=== PATIENT | male | born 1955 | race Two or more races ===

== ENCOUNTER 2023-11-20 05:02 | Emergency (ER) | payer MEDICARE, SELFPAY ==
[2023-11-20] VITALS (24 sets, daily range): BP systolic 155–174; BP diastolic 76–97; PULSE 64–80; TEMP 33.6–36.4; O2SAT 96–99; BMI 24.8
[2023-11-20 05:17] LABS: Glucometer 107 mg/dL (74-106)
[2023-11-20 05:23] LABS: Basophils Absolute Auto 0.1 10^3/uL (0.0-0.1); Basophils Percent Auto 0.5 % (0.2-2.0); Eosinophils Absolute Auto 0.4 10^3/uL (0.0-0.7); Eosinophils Percent Auto 3.6 % (0.9-7.0); Hematocrit 40.9 % (42.0-54.0); Hemoglobin 13.1 g/dL (14.0-18.0); Immature Granulocytes Abs Auto 0.01 10^3/uL (0.00-0.03); Immature Granulocytes Pct Auto 0.1 % (0.0-0.5); Lymphocytes Absolute Auto 1.1 10^3/uL (1.2-3.8); Lymphocytes Percent Auto 11.3 % (20.5-60.0); Mean Corpuscular Hemoglobin 28.2 pg (25.9-34.0); Mean Platelet Volume 9.6 fL (9.5-13.5); Monocytes Absolute Auto 0.4 10^3/uL (0.3-0.8); Monocytes Percent Auto 4.3 % (1.7-12.0); Neutrophils Percent Auto 80.2 % (43.0-75.0); Platelet Count 256 10^3/uL (150-450); Red Blood Count 4.65 10^6/uL (4.70-6.10); Red Cell Distribution Width 13.9 % (11.0-15.0)
[2023-11-20 05:36] LABS: BUN Creatinine Ratio 11.9; Calcium 9.6 mg/dL (8.5-10.1); Carbon Dioxide 25.3 mmol/L (21.0-32.0); Chloride 105 mmol/L (98-107); Estimated GFR (African America >60 (>=60); Estimated GFR (Non-African Ame 53 (>=60); Glucose 81 mg/dL (74-106); Potassium 3.3 mmol/L (3.5-5.1); Sodium 142 mmol/L (136-145)
--- NOTE | 2023-11-20 05:51 | ED_ITS ---
HPI HPI - General Adult General Chief complaint: Neuro Symptoms/Deficit Stated complaint: UNKNOWN Time Seen by Provider: 11/20/23 05:13 Source: patient Mode of arrival: ambulance Limitations: no limitations History of Present Illness HPI narrative: Patient BIBS after being found to have low blood sugar - EMS reported value of 38. The patient told me that he only ate taco [employer]uen once yesterday and had nothing else to eat. He said he was on the cough last night and then woke up with everyone around me . He does not recall what happened. EMS gave IV dextrose x2 and then brought him to our ED for evaluation. Patient is living with his niece after his kicked him out . He said that he shops for himself and also eats out at restaurants/fast food. He denied any recent illness and has no complaints. Related Data Home Medications ?Medication ?Instructions ?Recorded ?Confirmed atorvastatin 80 mg tablet 80 mg PO DAILY 11/20/23 11/20/23 carvedilol 12.5 mg tablet 12.5 mg PO Q12H 11/20/23 11/20/23 clopidogrel 75 mg tablet 75 mg PO DAILY 11/20/23 11/20/23 fenofibrate 160 mg tablet 160 mg PO DAILY 11/20/23 11/20/23 insulin glargine 100 unit/mL (3 28 unit subcut DAILY 11/20/23 11/20/23 mL) subcutaneous pen (Lantus Solostar U-100 Insulin) levetiracetam 750 mg tablet 750 mg PO Q12H 11/20/23 11/20/23 magnesium 200 mg tablet 400 mg PO TID 11/20/23 11/20/23 metformin 1,000 mg tablet 1,000 mg PO BID 11/20/23 11/20/23 omeprazole 40 mg capsule,delayed 40 mg PO DAILY 11/20/23 11/20/23 release Allergies Allergy/AdvReac Type Severity Reaction Status Date / Time No Known Drug Allergies Allergy Verified 11/20/23 05:10 Opioid HPI Opioid Management Most Recent Opioid Data: No Data to Display Exam Constitutional Vital Signs, click to edit/add: Last Vital Signs Pulse 69 11/20/23 05:04 Resp 24 H 11/20/23 05:04 BP 158/82 H 11/20/23 05:04 Pulse Ox 97 11/20/23 05:04 O2 Del Method Room Air 11/20/23 05:04 Documenting provider has reviewed patient's vital signs: yes Common normals: no apparent distress General appearance: cooperative and comfortable Orientation/consciousness: Yes awake, Yes oriented to person, Yes oriented to place and Yes oriented to time HENMT Common normals: normocephalic Head and scalp: normal to inspection Face and sinus: normal facial exam Mouth: oral and palatal mucosa normal Eye Common normals: PERRL, EOMs intact bilaterally, conjunctivae normal and no scleral icterus Respiratory Common normals: normal respiratory effort, no use of accessory muscles and clear to auscultation bilaterally Cardio Common normals: regular rate and regular rhythm GI Common normals: Normal to inspection, nondistended, normoactive bowel sounds present and non-tender Extremity Common normals: normal to inspection, full ROM and normal capillary refill Neuro Common normals: oriented x3, moves all extremities, no focal motor deficits and no sensory deficits noted Sensorium/orientation: awake, alert, oriented to person, oriented to place and oriented to time Meningeal signs: no meningeal signs Cranial nerves: CN normal except as noted Coordination/balance: does not sway with eyes open and Romberg test negative Speech: speech normal Psych Common normals: mental status grossly normal Course Vital Signs Vital signs: Vital Signs Pulse Rate 69 11/20/23 05:04 Respiratory Rate 24 H 11/20/23 05:04 Blood Pressure 158/82 H 11/20/23 05:04 Pulse Oximetry 97 11/20/23 05:04 Oxygen Delivery Method Room Air 11/20/23 05:04 Pulse Rate 69 11/20/23 05:04 Respiratory Rate 24 H 11/20/23 05:04 Blood Pressure 158/82 H 11/20/23 05:04 Pulse Oximetry 97 11/20/23 05:04 Oxygen Delivery Method Room Air 11/20/23 05:04 Medical Decision Making MDM Narrative Medical decision making narrative: Patient's glucose on arrival = 107. he was fed after blood drawn and sent for testing. Patient's glucose on BMP was 81. His glucose recheck after eating was 77. Glucose continues to drop despite IV and oral supplementation. He said he did not take his night insulin but I believe that he did, because he does not take glipizide or other oral hypoglycemics - only metformin, which would not cause his glucose to continue to drop. Niece's - who the patient is staying with - came to the ED and I talked with him but he was asleep at 10pm and does not know what happened with the patient. he told me that the patient had been doing well and was taking his meds appropriately and, as far as he knew, eating appropriately. Patient started on Dextrose drip - D5 NS at 500mL/hr IV. he will receive a liter of D5 NS and then we will recheck his glucose level. I expect him to be able to be discharged home. Patient signed out to Dr Deal to follow up with his repeat glucose and determine final disposition. Lab Data Lab results reviewed: Yes I reviewed the patient's lab results Labs: Lab Results 11/20/23 11/20/23 11/20/23 Range/Units 05:05 05:12 05:53 WBC 10.0 (4.0-11.0) 10^3/uL RBC 4.65 L (4.70-6.10) 10^6/uL Hgb 13.1 L (14.0-18.0) g/dL Hct 40.9 L (42.0-54.0) % MCV 88.0 (80.0-94.0) fL MCH 28.2 (25.9-34.0) pg MCHC 32.0 (29.9-35.2) g/dL RDW 13.9 (11.0-15.0) % Plt Count 256 (150-450) 10^3/uL MPV 9.6 (9.5-13.5) fL Neut % (Auto) 80.2 H (43.0-75.0) % Lymph % (Auto) 11.3 L (20.5-60.0) % [place] % (Auto) 4.3 (1.7-12.0) % Eos % (Auto) 3.6 (0.9-7.0) % Baso % (Auto) 0.5 (0.2-2.0) % Neut # (Auto) 8.0 H (1.4-6.5) 10^3/uL Lymph # (Auto) 1.1 L (1.2-3.8) 10^3/uL [place] # (Auto) 0.4 (0.3-0.8) 10^3/uL Eos # (Auto) 0.4 (0.0-0.7) 10^3/uL Baso # (Auto) 0.1 (0.0-0.1) 10^3/uL Abs Immat Gran (auto) 0.01 (0.00-0.03) 10^3/uL Imm/Tot Granulo (auto) 0.1 (0.0-0.5) % Sodium 142 (136-145) mmol/L Potassium 3.3 L (3.5-5.1) mmol/L Chloride 105 (98-107) mmol/L Carbon Dioxide 25.3 (21.0-32.0) mmol/L Anion Gap 15.0 BUN 16.0 (7.0-18.0) mg/dL Creatinine 1.35 H (0.70-1.30) mg/dL Est GFR ( Amer) >60 (>=60) Est GFR (Non-Af Amer) 53 L (>=60) BUN/Creatinine Ratio 11.9 Glucose 81 (74-106) mg/dL Calcium 9.6 (8.5-10.1) mg/dL POC Glucose 107 H 77 (74-106) mg/dL Discharge Plan Discharge Chief Complaint: Neuro Symptoms/Deficit Clinical Impression: Hypoglycemia Patient Disposition: Still a Patient Prescriptions / Home Meds: No Action atorvastatin 80 mg tablet 80 mg PO DAILY carvedilol 12.5 mg tablet 12.5 mg PO Q12H clopidogrel 75 mg tablet 75 mg PO DAILY fenofibrate 160 mg tablet 160 mg PO DAILY insulin glargine [Lantus Solostar U-100 Insulin] 100 unit/mL (3 mL) insulin pen 28 unit SUBCUT DAILY Rx Instructions: at HS levetiracetam 750 mg tablet 750 mg PO Q12H omeprazole 40 mg capsule,delayed release(DR/EC) 40 mg PO DAILY magnesium 200 mg tablet 400 mg PO TID metformin 1,000 mg tablet 1,000 mg PO BID Print Language: Divehi Instructions: Hypoglycemia in a Person with Diabetes (ED) Referrals: Physician,Non-Staff, MD [Primary Care Provider] - 1 week
[2023-11-20 05:55] LABS: Glucometer 77 mg/dL (74-106)
[2023-11-20] MEDS: DEXTROSE 5%-0.9% NACL 1,000 ML 1,000 ML 500 ML IV (06:15)
[2023-11-20 07:09] LABS: Glucometer 242 mg/dL (74-106)
--- NOTE | 2023-11-20 07:46 | ED_ITS ---
HPI HPI - General Adult General Chief complaint: Neuro Symptoms/Deficit Stated complaint: UNKNOWN Time Seen by Provider: 11/20/23 05:13 Source: patient Mode of arrival: ambulance Limitations: no limitations History of Present Illness HPI narrative: This patient was seen and evaluated by Dr. Houston. I did put an addendum on his chart. He was observed until approximately 7:30 AM. His blood sugar stabilized. We discussed decreasing his insulin dose since it seems to recently he is eating healthier and has a large much smaller calorie load. I am only opening this chart because I was not able to discharge him in Dr. Barry's note. Related Data Home Medications ?Medication ?Instructions ?Recorded ?Confirmed atorvastatin 80 mg tablet 80 mg PO DAILY 11/20/23 11/20/23 carvedilol 12.5 mg tablet 12.5 mg PO Q12H 11/20/23 11/20/23 clopidogrel 75 mg tablet 75 mg PO DAILY 11/20/23 11/20/23 fenofibrate 160 mg tablet 160 mg PO DAILY 11/20/23 11/20/23 insulin glargine 100 unit/mL (3 28 unit subcut DAILY 11/20/23 11/20/23 mL) subcutaneous pen (Lantus Solostar U-100 Insulin) levetiracetam 750 mg tablet 750 mg PO Q12H 11/20/23 11/20/23 magnesium 200 mg tablet 400 mg PO TID 11/20/23 11/20/23 metformin 1,000 mg tablet 1,000 mg PO BID 11/20/23 11/20/23 omeprazole 40 mg capsule,delayed 40 mg PO DAILY 11/20/23 11/20/23 release Allergies Allergy/AdvReac Type Severity Reaction Status Date / Time No Known Drug Allergies Allergy Verified 11/20/23 05:10 Opioid HPI Opioid Management Most Recent Opioid Data: No Data to Display Exam Constitutional Vital Signs, click to edit/add: Last Vital Signs Temp 97.5 F L 11/20/23 07:01 Pulse 76 11/20/23 07:58 Resp 18 11/20/23 07:58 BP 155/97 H 11/20/23 07:54 Pulse Ox 98 11/20/23 07:58 O2 Del Method Room Air 11/20/23 05:04 Course Vital Signs Vital signs: Vital Signs Pulse Rate 69 11/20/23 05:04 Respiratory Rate 24 H 11/20/23 05:04 Blood Pressure 158/82 H 11/20/23 05:04 Pulse Oximetry 97 11/20/23 05:04 Oxygen Delivery Method Room Air 11/20/23 05:04 Temperature 97.5 F L 11/20/23 07:01 Pulse Rate 76 11/20/23 07:58 Respiratory Rate 18 11/20/23 07:58 Blood Pressure 155/97 H 11/20/23 07:54 Pulse Oximetry 98 11/20/23 07:58 Oxygen Delivery Method Room Air 11/20/23 05:04 Medical Decision Making Lab Data Labs: Lab Results 11/20/23 11/20/23 11/20/23 Range/Units 05:05 05:12 05:53 WBC 10.0 (4.0-11.0) 10^3/uL RBC 4.65 L (4.70-6.10) 10^6/uL Hgb 13.1 L (14.0-18.0) g/dL Hct 40.9 L (42.0-54.0) % MCV 88.0 (80.0-94.0) fL MCH 28.2 (25.9-34.0) pg MCHC 32.0 (29.9-35.2) g/dL RDW 13.9 (11.0-15.0) % Plt Count 256 (150-450) 10^3/uL MPV 9.6 (9.5-13.5) fL Neut % (Auto) 80.2 H (43.0-75.0) % Lymph % (Auto) 11.3 L (20.5-60.0) % [place] % (Auto) 4.3 (1.7-12.0) % Eos % (Auto) 3.6 (0.9-7.0) % Baso % (Auto) 0.5 (0.2-2.0) % Neut # (Auto) 8.0 H (1.4-6.5) 10^3/uL Lymph # (Auto) 1.1 L (1.2-3.8) 10^3/uL [place] # (Auto) 0.4 (0.3-0.8) 10^3/uL Eos # (Auto) 0.4 (0.0-0.7) 10^3/uL Baso # (Auto) 0.1 (0.0-0.1) 10^3/uL Abs Immat Gran (auto) 0.01 (0.00-0.03) 10^3/uL Imm/Tot Granulo (auto) 0.1 (0.0-0.5) % Sodium 142 (136-145) mmol/L Potassium 3.3 L (3.5-5.1) mmol/L Chloride 105 (98-107) mmol/L Carbon Dioxide 25.3 (21.0-32.0) mmol/L Anion Gap 15.0 BUN 16.0 (7.0-18.0) mg/dL Creatinine 1.35 H (0.70-1.30) mg/dL Est GFR ( Amer) >60 (>=60) Est GFR (Non-Af Amer) 53 L (>=60) BUN/Creatinine Ratio 11.9 Glucose 81 (74-106) mg/dL Calcium 9.6 (8.5-10.1) mg/dL POC Glucose 107 H 77 (74-106) mg/dL 11/20/23 11/20/23 Range/Units 07:08 07:51 WBC (4.0-11.0) 10^3/uL RBC (4.70-6.10) 10^6/uL Hgb (14.0-18.0) g/dL Hct (42.0-54.0) % MCV (80.0-94.0) fL MCH (25.9-34.0) pg MCHC (29.9-35.2) g/dL RDW (11.0-15.0) % Plt Count (150-450) 10^3/uL MPV (9.5-13.5) fL Neut % (Auto) (43.0-75.0) % Lymph % (Auto) (20.5-60.0) % [place] % (Auto) (1.7-12.0) % Eos % (Auto) (0.9-7.0) % Baso % (Auto) (0.2-2.0) % Neut # (Auto) (1.4-6.5) 10^3/uL Lymph # (Auto) (1.2-3.8) 10^3/uL [place] # (Auto) (0.3-0.8) 10^3/uL Eos # (Auto) (0.0-0.7) 10^3/uL Baso # (Auto) (0.0-0.1) 10^3/uL Abs Immat Gran (auto) (0.00-0.03) 10^3/uL Imm/Tot Granulo (auto) (0.0-0.5) % Sodium (136-145) mmol/L Potassium (3.5-5.1) mmol/L Chloride (98-107) mmol/L Carbon Dioxide (21.0-32.0) mmol/L Anion Gap BUN (7.0-18.0) mg/dL Creatinine (0.70-1.30) mg/dL Est GFR ( Amer) (>=60) Est GFR (Non-Af Amer) (>=60) BUN/Creatinine Ratio Glucose (74-106) mg/dL Calcium (8.5-10.1) mg/dL POC Glucose 242 H 298 H (74-106) mg/dL Discharge Plan Discharge Stand Alone Forms: Portal Instructions Chief Complaint: Neuro Symptoms/Deficit Clinical Impression: Hypoglycemia Patient Disposition: Home, Self-Care Time of Disposition Decision: 07:46 Prescriptions / Home Meds: No Action atorvastatin 80 mg tablet 80 mg PO DAILY carvedilol 12.5 mg tablet 12.5 mg PO Q12H clopidogrel 75 mg tablet 75 mg PO DAILY fenofibrate 160 mg tablet 160 mg PO DAILY insulin glargine [Lantus Solostar U-100 Insulin] 100 unit/mL (3 mL) insulin pen 28 unit SUBCUT DAILY Rx Instructions: at HS levetiracetam 750 mg tablet 750 mg PO Q12H omeprazole 40 mg capsule,delayed release(DR/EC) 40 mg PO DAILY magnesium 200 mg tablet 400 mg PO TID metformin 1,000 mg tablet 1,000 mg PO BID Print Language: Qatari Instructions: Hypoglycemia in a Person with Diabetes (ED) Additional Instructions: Decrease insulin at nighttime 22 units, follow-up with your primary care doctor Referrals: Physician,Non-Staff, MD [Primary Care Provider] - 1 week Discharge Date/Time: 11/20/23 08:16
[2023-11-20 07:55] LABS: Glucometer 298 mg/dL (74-106)
== END 2023-11-20 08:16 | disposition home or self-care (01) ==
PROVIDERS: Emergency Provider Emergency Medicine
DX: E16.2 Hypoglycemia, unspecified (principal); Z79.4 Long term (current) use of insulin; Z79.899 Other long term (current) drug therapy; Z79.84 Long term (current) use of oral hypoglycemic drugs
CPT/HCPCS: 36415; 80048; 85025; 99284

== ENCOUNTER 2023-12-27 10:07 | Outpatient (OUT) | payer MEDICARE, SELFPAY ==
--- NOTE | 2023-12-27 11:45 | P.CN_ITS ---
Consult Note: HPI Data of Consult Patient: new to practice Consult date: 12/27/23 Requesting Physician: Lori Jackson MD Primary Care Provider: Non-Staff Physician, Family Provider: EDGAR Consult Narrative Reason for consult: neck, left shoulder/arm pain Narrative: 68yom who presents for evaluation. increasing neck and left arm pain for several years, now worsening. imaging reviewed, which is significant for severe left sided stenosis at c4-5 and c5-6. has completed >6 weeks of provider directed home exercise program, without benefit. uses tylenol primarily, has had percocet in the past, with some benefit. cannot take nsaids because of anticoagulation. denies adverse med side effects. cc:: CC: oLri Jackson MD Review of Systems ROS Status of ROS 10 or more systems reviewed and unremark able except as noted in history and below Meds Home Medications and Allergies Home Medications ?Medication ?Instructions ?Recorded ?Confirmed ?Type atorvastatin 80 mg tablet 80 mg PO DAILY 11/20/23 11/20/23 History carvedilol 12.5 mg tablet 12.5 mg PO Q12H 11/20/23 11/20/23 History clopidogrel 75 mg tablet 75 mg PO DAILY 11/20/23 11/20/23 History fenofibrate 160 mg tablet 160 mg PO DAILY 11/20/23 11/20/23 History insulin glargine 100 unit/mL (3 28 unit subcut DAILY 11/20/23 11/20/23 History mL) subcutaneous pen (Lantus Solostar U-100 Insulin) levetiracetam 750 mg tablet 750 mg PO Q12H 11/20/23 11/20/23 History magnesium 200 mg tablet 400 mg PO TID 11/20/23 11/20/23 History metformin 1,000 mg tablet 1,000 mg PO BID 11/20/23 11/20/23 History omeprazole 40 mg capsule,delayed 40 mg PO DAILY 11/20/23 11/20/23 History release oxycodone-acetaminophen 5 mg-325 1 tab PO BID PRN pain #14 tabs 12/27/23 Rx mg tablet (Percocet) Allergies Allergy/AdvReac Type Severity Reaction Status Date / Time No Known Drug Allergies Allergy Verified 11/20/23 05:10 Exam Narrative Exam Narrative: Psych-alert and oriented x 3.? Attentive and appropriate, constitutionally normal, displays normal mood and affect per situation.? There are no obvious deficits in memory, reasoning, or intellect.? Skin-no obvious rashes, bruising, or erythema noted to the patient's area of pain.? Extremities-upper extremities are warm with minimal edema and palpable pulses. Cervical- tenderness to palpation noted in the cervical spine and paraspinal musculature.? Pain is elicited with flexion, extension, and lateral rotation of the cervical spine.? Range of motion is diminished due to pain. Facet loading maneuvers are positive.? Strength-unremarkable and within normal limits with the exception to the left biceps Sensory-no notable sensory deficits in the bilateral upper extremities to touch or pinprick with the exception to decreased sensation to the left C4, 5, 6 dermatomal distribution.? Coordination remains intact.? Gait remains non-antalgic. Assessment and Plan Assessment and Plan (1) Cervical stenosis of spinal canal: (2) Radiculopathy, cervical region: Plan 68yom who presents for evaluation. failed conservative measures, as noted. imaging reviewed, as noted. given symptoms and imaging, prudent to attempt left c4-5, c5-6 tfesi under fluoroscopic guidance. will use ivcs for extreme anxiety, as patient has not tolerated local anesthesia for previous procedures. medications reviewed. pdmp reviewed. uds obtained. will trial percocet 5mg bid prn. follow up after procedure.
== END 2023-12-27 10:08 | disposition home or self-care (01) ==
PROVIDERS: Visit Provider Anesthesiology
DX: M48.02 Spinal stenosis, cervical region (principal); M54.12 Radiculopathy, cervical region
CPT/HCPCS: G0463

== ENCOUNTER 2024-01-24 07:07 | Day surgery (SDC) | payer MEDICARE, SELFPAY ==
--- OUTSIDE RECORDS SUMMARY | 2024-01-24 07:11 | XMS_ITS | CCD ---
Author Organization [facility] Care Team Providers Care Interior Decorator Paperhanging Name Role Phone Trang Mccormick DO Primary Care Provider [phone] MD Yen Hoover Emergency Provider [phone] DO Terence Robleor Admit Provider DELFINO Rivera Other Provider MD Asiya Morales Other Provider MD Daniele Aaron Other Provider MD Emmanuel Zazueta Attending Provider [phone] NO FAMILY, PHYSICIAN Primary Care Provider Unava ilable MD Daniele Aaron Attending Provider NO FAMILY, PHYSICIAN Primary Care Unavailable Daniele Aaron Attending UnavailDaniele Saha Admitting UnavailTerence Hardwick Admitting Unavailable Brock Rivera Consulting Unavailable Emmanuel Zazueta Attending Unavailable NO FAMILY, PHYSICIAN Primary Care Unavailable Asiya Morales Consulting Unavailable Daniele Aaron Consulting Unavailabl FILIPE Gallegos Referring Unavailable KRISTINE, JESUSITA Primary Care Unavailable JAZMÍN CAR Attending Unavailable KING ADDISON Referring Unavailable KRISTINE, JESUSITA Primary Care Unavailable MOLLYSCHLAG, TRANG K Primary Care Unavailable MIKAELA BARRETO Attending Unavailable BRENT HILLIARD Consulting Unavailable ROCÍO PORRAS Admitting Unavailable ONLY), IP WOUND CARE SERVICES (INPATIENT Consult ing Unavailable INPATIENT, TELENEUROLOGY Consulting Unavail able ASIYA AMBROCIO Consulting Unavailable MIKAELA BARRETO Attending Unavailable MIKAELA BARRETO Referring Unavailable ANNY, TRANG K Primary Care Unavailable TREMAINS, ASIYA R Attending Unavailable TREMASIYA FISCHER R Referring Unavailable KRISTINE, JESUSITA Primary Care Unavailable TIMOTHY BENNETT Attending Unavailable CHELLYG, TRANG K Referring Unavailable KRISTINE, JESUSITA Primary Care Unavailable RUMSCHLAG, TRANG K Referring Unavailable RUMSCHLAG, TRANG K Primary Care Unavailable EMANUEL HECTOR Attending Unavailable EMANUEL HECTOR Referring Unavailable RUMSCHLAG, TRANG K Primary Care Unavailable TIMOTHY BENNETT Attending Unavailable RUMSCHLAG, TRANG K Referring Unavailable RUMSCHLAG, TRANG K Primary Care Unavailable Renetta FERNANDEZ, Lori Rosales Attending Unavailable Medications Current Medications Medication Drug Class(es) Dates Sig (Normalized) Sig (Original) acetaminophen 500 mg oral tablet (10 sources) Start: 06-03-2023 take 2 tablets by mouth every six hours as needed for pain acetaminophen (TYLENOL EXTRA STRENGTH) 500 mg tablet Take 2 tablets (1,000 mg total) by mouth every 6 (six) hours as needed for pain. 30 tablet 0 06/03/2023 Active acetaminophen 325 mg / oxyCODONE hydrochloride 5 mg oral tablet (10 sources) Opioid Agonist take 1 tablet by mouth every six hours as needed for pain oxyCODONE-acetamin ophen (PERCOCET) 5-325 mg per tablet Take 1 tablet by mouth every 6 (six) hours as needed for pain. 0 Active amLODIPine 5 mg oral tablet (4 sources) Dihydropyridine Calcium Channel Rosi Start: 10-20-2023 take 1 tablet by mouth once daily Start: 09-06-2023 take 1 tablet by bethel th once daily in the morning amLODIPine (NORVASC) 5 mg tablet TAKE ONE TABLET BY MOUTH EVERY MORNING 90 tablet 2 09/06/2023 Active aspirin 81 mg delayed release oral tablet (13 sources) Platelet Aggregation Inhibitor, Nonsteroidal Anti-inflammatory Drug Start: 10-20-2023 take 1 tablet by mouth once daily Aspirin (Adult Aspirin Regimen) 81 mg tablet,delayed release (DR/EC) Active 81 MG PO Daily October 20, 2023 1:00am Start: 12-04-2016 take 1 tablet by bethel th in the morning aspirin 81 mg Take 1 tablet (81 mg total) by mouth in the morning. 0 12/04/2016 Active atorvastatin 40 mg oral tablet (13 sources) HMG-CoA Reductase Inhibitor Start: 10-20-2023 take 1 tablet by mouth once daily at bedtime Start: 07-13-2022 End: 09-02-2023 take 1 tablet by mouth once daily in the evening atorvastatin (LIPITOR) 80 mg tablet TAKE ONE TABLET BY MOUTH EVERY EVENING 90 tablet 3 09/02/2023 Active carvedilol 12.5 mg oral tablet (14 sources) alpha-Adrenergic Rosi, beta-Adrenergic Rosi Start: 10-20-2023 take 12.5 mg by mouth twice daily Carvedilol Active 12.5 MG PO Twice daily October 20, 2023 1:00am Start: 07-31-2023 End: 09-06-2023 take 1 tablet by mouth in the morning, then take 1 tablet by mouth at bedtime carvediloL (COREG) 12.5 mg tablet Take 1 tablet (12.5 mg total) by mouth in the morning and 1 tablet (12.5 mg total) before bedtime. 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 90 tablet 3 06/15/2023 Active DULoxetine 60 mg delayed release oral capsule (13 sources) Serotonin and Norepinephrine Reuptake Inhibitor Start: 10-20-2023 take 1 capsule by mouth once daily take 1 capsule by mouth in the m orning DULoxetine (CYMBALTA) 60 mg capsule Take 1 capsule (60 mg total) by mouth in the morning. 0 Active fenofibrate 160 mg oral tablet (14 sources) Peroxisome Proliferator Receptor alpha Agonist Start: 10-20-2023 take 1 tablet by mouth once daily Start: 08-17-2023 take 1 tablet by bethel th in the morning fenofibrate (LOFIBRA) 160 mg tablet Indications: Combined hyperlipidemia Take 1 tablet (160 mg total) by mouth in the morning. 90 tablet 2 08/17/2023 Active Start: 04-26-2023 End: 08-13-2023 take 1 tablet by mouth once daily in the morning fenofibrate (LOFIBRA) 160 mg tablet Indications: Combined hyperlipidemia TAKE ONE TABLET BY MOUTH EVERY MORNING 90 tablet 1 04/26/2023 08/13/2023 Discontinued (Reorder) hydroCHLOROthiazide 12.5 mg / losartan potassium 100 mg oral tablet (3 sources) Thiazide Diuretic, Angiotensin 2 Receptor Rosi Start: 10-20-2023 take 1 tablet by mouth once daily 3 ml insulin glargine 100 unt/ml pen injector (13 sources) Insulin Analog Start: 10-20-2023 insulin glargine (LANTUS) 100 unit/mL injection Indications: type 2 diabetes mellitus Inject 0.28 mL (28 Units total) under the skin nightly Indications: type 2 diabetes mellitus. 0 Active 24 hr isosorbide mononitrate 30 mg extended release oral tablet (13 sources) Nitrate Vasodilator Start: 10-20-2023 take 1 tablet by mouth once daily in the morning Start: 11-16-2022 take 1 tablet by bethel th once daily isosorbide mononitrate (IMDUR) 30 mg 24 hr tablet Take 1 tablet (30 mg total) by mouth daily. 90 tablet 3 11/16/2022 Active levETIRAcetam 500 mg oral ta blet (13 sources) Start: 10-20-2023 take 1 tablet by bethel th every twelve hours Start: 07-31-2023 take 1 tablet by bethel th in the morning, then take 1 tablet by mouth at bedtime levETIRAcetam (KEPPRA) 750 mg tablet Take 1 tablet (750 mg total) by mouth in the morning and 1 tablet (750 mg total) before bedtime. 60 tablet 2 07/31/2023 Active losartan potassium 25 mg oral tablet (11 sources) Angiotensin 2 Receptor Rosi Start: 08-02-2023 End: 09-06-2023 take 1 tablet by mouth in the morning losartan (COZAAR) 25 mg tablet Take 1 tablet (25 mg total) by mouth in the morning. 90 tablet 2 09/06/2023 Active magnesium oxide 400 mg oral tablet (13 sources) Start: 10-20-2023 take 400 mg by mouth three times daily Start: 12-02-2022 take 1 tablet by bethel th three times daily magnesium oxide (MAGOX) 400 mg tablet Take 1 tablet (400 mg total) by mouth 3 (three) times a day. 90 tablet 8 12/02/2022 Active metFORMIN hydrochloride 1000 mg oral tablet (13 sources) Biguanide Start: 10-20-2023 take 1 tablet by bethel th twice daily at mealtime take 1 tablet by bethel th in the morning, then take 1 tablet by mouth at mealtime metFORMIN (GLUCOPHAGE) 1000 mg tablet Take 1 tablet (1,000 mg total) by mouth in the morning and 1 tablet (1,000 mg total) in the evening. Take with meals. 0 Active nicotine 4 mg chewing gum (20 sources) Cholinergic Nicotinic Agonist Start: 10-20-2023 apply 1 dose transdermal route once daily Nicotine Active 1 PATCH TRANSDERML Daily October 20, 2023 1:00am Start: 10-20-2023 Nicotine (Anthony crilex) Active 4 MG BUCCAL Every 8 hours October 20, 2023 1:00am Start: 12-08-2022 apply 1 dose transde rmal route once daily nicotine (NICODERM CQ) 21 mg/24 hr Indications: Smoker Place 1 patch on the skin daily. 30 patch 2 12/08/2022 Active Start: 12-08-2022 nicotine polac rilex (COMMIT) 4 MG lozenge Indications: Smoker Dissolve 1 lozenge (4 mg total) in the mouth as needed for smoking cessation (CRAVING). 100 each 0 12/08/2022 Active omeprazole 40 mg delayed release oral capsule (13 sources) Proton Pump Inhibitor Start: 10-20-2023 take 1 capsule by mouth once daily take 1 capsule by mouth in the m orning omeprazole (PriLOSEC) 40 mg capsule Take 1 capsule (40 mg total) by mouth in the morning. 0 Active oxyCODONE hydrochloride 5 mg oral tablet (3 sources) Opioid Agonist Start: 10-25-2023 take 5 mg by mouth every six hours Oxycodone Active 5 MG PO Every 6 hours 15 5 October 25, 2023 rivaroxaban 20 mg oral tablet (10 sources) Factor Xa Inhibitor Start: 08-01-2023 take 1 tablet by mouth in the morning rivaroxaban (XARELTO) 20 mg tablet tablet Take 1 tablet (20 mg total) by mouth in the morning. Resume taking.. 0 08/01/2023 Active saccharomyces boulardii 250 mg oral capsule (3 sources) Start: 10-25-2023 take 250 mg by mouth twice daily Saccharomyces Boulardii Active 250 MG PO Twice daily October 25, 2023 12:00am sulfamethoxazole 800 mg / trimethoprim 160 mg oral tablet (2 sources) Dihydrofolate Reductase Inhibitor Antibacterial, Sulfonamide Antimicrobial Start: 11-24-2023 take 1 tablet by mouth every twelve hours Sulfamethoxazole-T rimethoprim (Bactrim Ds) 800-160 mg tablet Active 1 TAB PO Every 12 hours November 24, 2023 12:00am Completed/Discontinued Medications Medication Drug Class(es) Dates Sig (Normalized) Sig (Original) traMADol hydrochloride 50 mg oral tablet (4 sources) Opioid Agonist End: 08-25-2023 take 1 tablet by mouth every six hours as needed for pain traMADoL (ULTRAM) 50 mg tablet Take 1 tablet (50 mg total) by mouth every 6 (six) hours as needed for pain. 0 08/25/2023 Discontinued Problems Active Problems Problem Classification Problem Date Documented Da te Episodic/Chronic Acute and unspecified renal failure (10 sources) Acute injury of kidney; Translations: [Acute kidney failure, unspecified] Onset: 07-31-2023 07-31-2023 Episodic Acute cerebrovascular disease (11 sources) Cerebrovascular accident; Translations: [Cerebral infarction, unspecified] Onset: 04-23-2022 04-24-2022 Chronic Chronic ulcer of skin (1 source) Non-pressure chronic ulcer of other part of unspecified foot limited to breakdown of skin; Translations: [Non-pressure chronic ulcer of other part of unspecified foot limited to breakdown of skin] Onset: 10-20-2023 Chronic Complications of surgical procedures or medical care (4 sources) Non-healing surgical wound; Translations: [Other complications of procedures, not elsewhere classified, initial encounter] 11-24-2023 Episodic Coronary atherosclerosis and other heart disease (20 sources) Coronary arteriosclerosis; Translations: [Atherosclerotic heart disease of tolowa dee-ni' coronary artery without angina pectoris] Onset: 10-09-2015 Resolved: 07-22-2023 05-19-2019 Chronic Diabetes mellitus with complications (20 sources) Type 2 diabetes mellitus; Translations: [Type 2 diabetes mellitus with diabetic polyneuropathy] Onset: 10-09-2015 07-31-2023 Chronic Diabetes mellitus without complication (4 sources) Type 2 diabetes mellitus without complications; Translations: [Diabetes mellitus without mention of complication, type II or unspecified type, not stated as uncontrolled] Onset: 10-20-2023 10-25-2023 Chronic Disorders of lipid metabolism (18 sources) Mixed hyperlipidemia; Translations: [Mixed hyperlipidemia] Onset: 10-18-2006 08-13-2023 Chronic Epilepsy; convulsions (20 sources) Seizure disorder; Translations: [Epilepsy, unspecified, not intractable, without status epilepticus] Onset: 08-04-2022 07-31-2023 Chronic Epilepsy; convulsions (7 sources) Seizure; Translations: [Unspecified convulsions] Onset: 10-20-2023 11-02-2023 Episodic Essential hypertension (18 sources) Essential hypertension; Translations: [Essential (primary) hypertension] Onset: 05-19-2019 07-31-2023 Chronic Fluid and electrolyte disorders (10 sources) Hypokalemia; Translations: [Hypokalemia] Onset: 07-31-2023 07-31-2023 Episodic Gangrene (7 sources) Gangrenous disorder; Translations: [Gangrene, not elsewhere classified] Onset: 10-20-2023 11-02-2023 Episodic Infective arthritis and osteomyelitis (except that caused by tuberculosis or sexually transmitted disease) (10 sources) Chronic osteomyelitis of ankle and/or foot; Translations: [Other chronic osteomyelitis, right ankle and foot] Onset: 01-14-2023 06-09-2023 Chronic Other circulatory disease (10 sources) History of cerebrovascular accident; Translations: [Personal history of transient ischemic attack (TIA), and cerebral infarction without residual deficits] Onset: 07-31-2023 07-31-2023 Episodic Other circulatory disease (10 sources) Orthostatic hypotension; Translations: [Orthostatic hypotension] Onset: 07-31-2023 07-31-2023 Episodic Other gastrointestinal disorders (3 sources) Loose stool; Translations: [Other fecal abnormalities] 11-02-2023 Episodic Other gastrointestinal disorders (4 sources) Other fecal abnormalities; Translations: [Abnormal feces] Onset: 10-20-2023 10-25-2023 Episodic Other injuries and conditions due to external causes (2 sources) Open wound; Translations: [Other injury of unspecified body region, initial encounter] 11-24-2023 Episodic Other injuries and conditions due to external causes (1 source) Other injury of unspecified body region, initial encounter; Translations: [Other injury of unspecified body region, initial encounter] Onset: 11-24-2023 Episodic Other nervous system disorders (1 source) Numbness Onset: 12-03-2023 Episodic Other non-traumatic joint disorders (1 source) Pain in left shoulder; Translations: [Pain in left shoulder] Onset: 12-03-2023 Episodic Other nutritional; endocrine; and metabolic disorders (3 sources) Hypomagnesemia; Translations: [Hypomagnesemia] 11-02-2023 Chronic Other nutritional; endocrine; and metabolic disorders (4 sources) Hypomagnesemia; Translations: [Disorders of magnesium metabolism] Onset: 10-20-2023 10-25-2023 Chronic Peripheral and visceral atherosclerosis (20 sources) 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; Translations: [Atherosclerosis of tolowa dee-ni' arteries of the extremities with ulceration] Onset: 10-09-2015 12-09-2022 Chronic Skin and subcutaneous tissue infections (7 sources) Cellulitis of right lower limb; Translations: [Cellulitis of right lower limb] Onset: 10-20-2023 11-02-2023 Episodic Spondylosis; intervertebral disc disorders; other back problems (20 sources) Displacement of lumbar intervertebral disc without myelopathy; Translations: [Other intervertebral disc displacement, lumbar region] Onset: 03-17-2016 09-29-2018 Chronic Spondylosis; intervertebral disc disorders; other back problems (12 sources) Spinal stenosis of lumbar region; Translations: [Spinal stenosis, lumbar region without neurogenic claudication] Onset: 10-02-2016 10-02-2016 Episodic Sprains and strains (1 source) Strain of unspecified muscle, fascia and tendon at shoulder and upper arm level, left arm, initial encounter; Translations: [Strain of unspecified muscle, fascia and tendon at shoulder and upper arm level, left arm, initial encounter] Onset: 12-23-2023 Episodic Substance-related disorders (14 sources) Smoker; Translations: [Nicotine dependence, unspecified, uncomplicated] Onset: 12-08-2022 12-08-2022 Chronic Unclassified (1 source) Consult Onset: 12-21-2023 Unclassified (1 source) NUMBNESS LEFT ARM Onset: 12-03-2023 Unclassified (1 source) New Patient Onset: 08-25-2023 Past or Other Problems Problem Classification Problem Date Documented Date Episodic/Chronic Hypertension with complications and secondary hypertension (10 sources) Secondary hypertension; Translations: [Secondary hypertension, unspecified] Onset: 06-13-2018 Resolved: 05-19-2019 05-19-2019 Chronic Mood disorders (10 sources) Mood disorders Onset: 05-26-2023 05-26-2023 Other circulatory disease (10 sources) Lower limb ischemia; Translations: [Other disorder of circulatory system] Onset: 05-26-2023 05-26-2023 Episodic Other circulatory disease (1 source) Orthostatic hypotension; Translations: [Orthostatic hypotension] Onset: 07-31-2023 Episodic Other connective tissue disease (10 sources) Neurological symptom; Translations: [Unspecified symptoms and signs involving the nervous system] Onset: 04-23-2022 04-24-2022 Episodic Other screening for suspected conditions (not mental disorders or infectious disease) (10 sources) Cardiovascular stress test abnormal; Translations: [Abnormal result of other cardiovascular function study] Onset: 11-06-2021 Resolved: 07-22-2023 07-22-2023 Episodic Syncope (10 sources) Syncope; Translations: [Syncope and collapse] Onset: 04-24-2022 04-24-2022 Episodic Unclassified (10 sources) Onset: 10-27-2022 10-27-2022 Results Test Name Value Interpretation Reference Range Facility MR SHOULDER LT WO CONTon MR SHOULDER LT WO CONT MR SHOULDER LT WO CONT HISTORY and Tech Notes: Strain of unspecified muscle, fascia and tendon at shoulder and upper arm level, left arm, initial encounter Pain and limited ROM left shoulder Weakness left arm x 3-4 weeks Denies injury Series 7 PROCEDURE: MRI of the left shoulder COMPARISON: None. FINDINGS: No fracture or contusion seen No significant effusion seen. There is significant DJD at the glenohumeral joint with cystic change and remodeling posteriorly and inferiorly along the glenoid fossa No bursa fluid collection . There is significant degenerative change at the AC joint with bone remodeling and hypertrophy There is moderate subacromial narrowing near the supraspinatus. Subscapularis looks intact Biceps long head tendon and anchor look grossly intact. No acute capsular rupture or avulsion There is not significant edema along the joint capsule typical of adhesive capsulitis. There is tendinopathy in the supraspinatus with heterogeneous signal in the mid and distal segment but without significant volume loss or discrete fluid-filled gap or retracted tendon stump No full thickness rotator cuff tear is seen. No significant muscle atrophy seen. . IMPRESSION: No discrete or full-thickness rotator cuff tear seen Relatively severe tendinopathy in the mid and distal supraspinatus, without fluid-filled gap or retracted tendon stump or significant volume loss/atrophy Hypertrophic changes at the AC joint with subacromial narrowing from impingement in the supraspinatus region Significant loss articular cartilage and degenerative change greatest along the posterior and inferior glenoid fossa without significant effusion, capsular rupture or signs typical of adhesive capsulitis Axial view suggests a posterior labral tear without separation or adjacent cyst/ganglion Finalized by Mynor Cowan MD on 12/23/2023 3:45 PM Normal [facility] XR SPINE CERVICAL 4 OR 5 VWS on 12-22-2023 XR SPINE CERVICAL 4 OR 5 VWS XR SPINE CERVICAL 4 OR 5 VWS History: Neck pain. Left hand numbness, shoulder and arm pain. Exam/Technique: Cervical spine: 4 Views Comparison: Cervical spine MRI from 12/06/2023 Findings: The vertebral heights are normal. No evidence of fractures or malalignment is seen with straightening and loss of the lordosis likely from muscle spasm. There is disc space narrowing and bony spurring most significant at C5-6 level. The frontal view revealed sternotomy wires with break in the superior most wires seen.There is no evidence of bony cervical ribs. No prevertebral soft tissue abnormality is identified. Flexion and extension views revealed adequate range of motion in flexion and limited range in extension. No pathologic motion is appreciated. IMPRESSION: Moderate lower cervical spondylosis mainly seen at C5-6 level. Limited range of motion in extension. No pathologic motion.. Finalized by Thad Varner MD on 12/22/2023 8:54 PM Normal [facility] CBC AND AUTO DIFFon 12-06-19 24 ABSOLUTE BASOPHIL 0.1 X10E9/L Normal 0.0-0.2 [facility] Comment on above: Performed By: #### C BCA, PINR, 97841-3, BMP, 09445-1, THYR #### [facility] ([id number]) [address] [place] [address] #### 2132-9 #### [facility] ([id number]) [address] [place] [address], [address] [place] [address] ABSOLUTE NEUTROPHIL 5.3 X10E9/L Normal 1.5-6.6 [facility] Comment on above: Performed By: #### C BCA, PINR, 20087-8, BMP, 74819-3, THYR #### [facility] ([id number]) [address] [place] [address] #### 2132-9 #### [facility] ([id number]) [address] [place] [address], [address] [place] [address] Basophils/100 WBC (Bld) 0.9 % Normal [facility] Comment on above: Performed By: #### C BCA, PINR, 32145-9, BMP, 48746-1, THYR #### [facility] ([id number]) [address] [place] [address] #### 2-9 #### [facility] ([id number]) [address] [place] [address], [address] [place] [address] Eosinophils (Bld) [#/Vol] 0.1 10*3/uL Normal 0.0-0.4 [facility] Comment on above: Performed By: #### C BCA, PINR, 52014-9, BMP, 18161-9, THYR #### [facility] ([id number]) [address] [place] [address] #### 2131-9 #### [facility] ([id number]) [address], [address] [place] [address] Eosinophils/100 WBC (Bld) 1.6 % Normal [facility] Comment on above: Performed By: #### C BCA, PINR, 31164-5, BMP, 20439-1, THYR #### [facility] ([id number]) [address] [place] [address] #### 2131-9 #### [facility] ([id number]) [address], [address] [place] [address] Erythrocyte distribution width (RBC) [Ratio] 14.8 % Normal 11.5-15.0 [facility] Comment on above: Performed By: #### C BCA, PINR, 54899-1, BMP, 10346-2, THYR #### [facility] ([id number]) [address] [place] [address] #### 2131-9 #### [facility] ([id number]) [address], [address] [place] [address] Hematocrit (Bld) [Volume fraction] 34.8 % Low 39-49 [facility] Comment on above: Performed By: #### C BCA, PINR, 17269-1, BMP, 38526-3, THYR #### [facility] ([id number]) [address] [place] [address] #### 2131-9 #### [facility] ([id number]) [address], [address] [place] [address] Hemoglobin (Bld) [Mass/Vol] 11.9 g/dL Low 13.0-17.0 [facility] Comment on above: Performed By: #### C BCA, PINR, 51541-4, BMP, 82102-1, THYR #### [facility] ([id number]) [address] [place] [address] #### 2-9 #### [facility] ([id number]) [address] [facility], [address] [place] [address] Lymphocytes (Bld) [#/Vol] 1.7 10*3/uL Normal 1.0-3.5 [facility] Comment on above: Performed By: #### C BCA, PINR, 65383-2, BMP, 26497-2, THYR #### [facility] ([id number]) [address] [place] [address] #### 2131-9 #### [facility] ([id number]) [address] [facility], [address] [place] [address] Lymphocytes/100 WBC (Bld) 22.7 % Normal [facility] Comment on above: Performed By: #### C BCA, PINR, 90487-4, BMP, 11177-2, THYR #### [facility] ([id number]) [address] [place] [address] 40780 #### 2131-9 #### [facility] ([id number]) [address], [address] [place] [address] MCH (RBC) [Entitic mass] 28.5 pg Normal 27-34 [facility] Comment on above: Performed By: #### C BCA, PINR, 54823-3, BMP, 25526-5, THYR #### [facility] ([id number]) [address] [place] [address] 47152 #### 2-9 #### [facility] ([id number]) [address], [address] [place] [address] MCHC (RBC) [Mass/Vol] 34.1 g/dL Normal 32-36 [facility] Comment on above: Performed By: #### C BCA, PINR, 82247-9, BMP, 19146-8, THYR #### [facility] ([id number]) [address] [place] [address] 94829 #### 9 #### [facility] ([id number]) [address], [address] [place] [address] MCV (RBC) [Entitic vol] 83 fL Normal 80-100 [facility] Comment on above: Performed By: #### C BCA, PINR, 88212-4, BMP, 64711-7, THYR #### [facility] ([id number]) [address] [place] [address] 27043 #### 9 #### [facility] ([id number]) [address], [address] [place] [address] Monocytes (Bld) [#/Vol] 0.5 10*3/uL Normal 0-0.9 [facility] Comment on above: Performed By: #### C BCA, PINR, 14743-7, BMP, 08331-2, THYR #### [facility] ([id number]) [address] [place] [address] 73833 #### 9 #### [facility] ([id number]) [address], [address] [place] [address] Monocytes/100 WBC (Bld) 5.9 % Normal [facility] Comment on above: Performed By: #### C BCA, PINR, 08518-3, BMP, 78412-3, THYR #### [facility] ([id number]) [address] [place] [address] 94398 #### 9 #### [facility] ([id number]) [address], [address] [place] [address] Neutrophils/100 WBC (Bld) 68.9 % Normal [facility] Comment on above: Performed By: #### C BCA, PINR, 24703-7, BMP, 50988-6, THYR #### [facility] ([id number]) [address] [place] [address] 18052 #### 2131-9 #### [facility] ([id number]) [address], [address] [place] [address] Platelet mean volume (Bld) [Entitic vol] 7.6 fL Normal 7-12 [facility] Comment on above: Performed By: #### C BCA, PINR, 79949-9, BMP, 19986-8, THYR #### [facility] ([id number]) [address] [place] [address] 21785 #### 9 #### [facility] ([id number]) [address], [address] [place] [address] Platelets (Bld) [#/Vol] 257 10*3/uL Normal 150-450 [facility] Comment on above: Performed By: #### C BCA, PINR, 31072-9, BMP, 67971-7, THYR #### [facility] ([id number]) [address] [place] [address] 74619 #### 9 #### [facility] ([id number]) [address], [address] [place] [address] RBC COUNT 4.17 X10E12/L Normal 4.10-5.70 [facility] Comment on above: Performed By: #### C BCA, PINR, 71419-5, BMP, 35879-2, THYR #### [facility] ([id number]) [address] [place] [address] 58059 #### 2131-9 #### [facility] ([id number]) [address], [address] [place] [address] WBC (Bld) [#/Vol] 7.6 10*3/uL Normal 4.0-11.0 [facility] Comment on above: Performed By: #### C BCA, PINR, 98311-3, BMP, 77691-3, THYR #### [facility] ([id number]) [address] [place] [address] 38616 #### 2132-9 #### [facility] ([id number]) [address], [address] [place] [address] COMPREHENSIVE METABOLIC PANE True 12-06-2023 Albumin [Mass/Vol] 3.8 g/dL Normal 3.2-5.3 [facility] Comment on above: Performed By: #### C BCA, PINR, 54143-8, BMP, 59522-9, THYR #### [facility] ([id number]) [address] [place] [address] 80429 #### 2132-9 #### [facility] ([id number]) [address], [address] [place] [address] ALP [Catalytic activity/Vol] 53 U/L Normal 39-130 [facility] Comment on above: Performed By: #### C BCA, PINR, 02540-7, BMP, 57243-9, THYR #### [facility] ([id number]) [address] [place] [address] 57611 #### 2132-9 #### [facility] ([id number]) [address], [address] [place] [address] ALT [Catalytic activity/Vol] 9 U/L Normal 0-40 [facility] Comment on above: Performed By: #### C BCA, PINR, 46396-2, BMP, 69292-9, THYR #### [facility] ([id number]) [address] [place] [address] 23881 #### 2131-9 #### [facility] ([id number]) [address], [address] [place] [address] Anion gap [Moles/Vol] 8 mmol/L Normal 5-15 [facility] Comment on above: Performed By: #### C BCA, PINR, 88273-5, BMP, 25265-3, THYR #### [facility] ([id number]) [address] [place] [address] 42952 #### 2131-9 #### [facility] ([id number]) [address], [address] [place] [address] AST [Catalytic activity/Vol] 14 U/L Normal 0-41 [facility] Comment on above: Performed By: #### C BCA, PINR, 68058-1, BMP, 20795-1, THYR #### [facility] ([id number]) [address] [place] [address] 37670 #### 2131-9 #### [facility] ([id number]) [address], [address] [place] [address] Bilirubin [Mass/Vol] 0.5 mg/dL Normal 0.3-1.2 [facility] Comment on above: Performed By: #### C BCA, PINR, 76002-6, BMP, 91811-0, THYR #### [facility] ([id number]) [address] [place] [address] 34252 #### 2131-9 #### [facility] ([id number]) [address], [address] [place] [address] Calcium [Mass/Vol] 9.3 mg/dL Normal 8.5-10.5 [facility] Comment on above: Performed By: #### C BCA, PINR, 78473-8, BMP, 71708-7, THYR #### [facility] ([id number]) [address] [place] [address] 30345 #### 9 #### [facility] ([id number]) [address], [address] [place] [address] Chloride [Moles/Vol] 102 mmol/L Normal 98-109 [facility] Comment on above: Performed By: #### C BCA, PINR, 50073-2, BMP, 56351-7, THYR #### [facility] ([id number]) [address] [place] [address] 28880 #### 2131-9 #### [facility] ([id number]) [address], [address] [place] [address] CO2 [Moles/Vol] 27 mmol/L Normal 22-32 [facility] Comment on above: Performed By: #### C BCA, PINR, 97735-0, BMP, 34960-0, THYR #### [facility] ([id number]) [address] [place] [address] 74374 #### 2131-9 #### [facility] ([id number]) [address], [address] [place] [address] Creatinine [Mass/Vol] 1.42 mg/dL High 0.70-1.20 [facility] Comment on above: Result Comment: METH OD TRACEABLE TO IDMS STANDARD Performed By: #### C BCA, PINR, 76492-0, BMP, 14538-4, THYR #### [facility] ([id number]) [address] [place] [address] 47560 #### 2131-9 #### [facility] ([id number]) [address], [address] [place] [address] GFR/1.73 sq M.predicted among non-blacks MDRD (S/P/Bld) [Vol rate/Area] 54 mL/min/{1.73_m2} Low >59 [facility] Comment on above: Result Comment: Reported eGFR is based on the CKD-EPI 2020 equation that does not use a race coefficient. Performed By: #### C BCA, PINR, 19940-6, BMP, 93247-9, THYR #### [facility] ([id number]) [address] [place] [address] 48795 #### 2132-9 #### [facility] ([id number]) [address], [address] [place] [address] Glucose [Mass/Vol] 160 mg/dL High 65-99 [facility] Comment on above: Performed By: #### C BCA, PINR, 16422-8, BMP, 46565-5, THYR #### [facility] ([id number]) [address] [place] [address] 69101 #### 2132-9 #### [facility] ([id number]) [address], [address] [place] [address] Potassium [Moles/Vol] 4.2 mmol/L Normal 3.5-5.0 [facility] Comment on above: Performed By: #### C BCA, PINR, 20656-6, BMP, 87574-9, THYR #### [facility] ([id number]) [address] [place] [address] 95236 #### 2132-9 #### [facility] ([id number]) [address], [address] [place] [address] Protein [Mass/Vol] 7.2 g/dL Normal 6.0-8.0 [facility] Comment on above: Performed By: #### C BCA, PINR, 69699-7, BMP, 78038-4, THYR #### [facility] ([id number]) [address] [place] [address] 35540 #### 2131-9 #### [facility] ([id number]) [address], [address] [place] [address] Sodium [Moles/Vol] 137 mmol/L Normal 134-146 [facility] Comment on above: Performed By: #### C BCA, PINR, 24431-7, [facility], 10273-9, THYR #### [facility] ([id number]) [address] [place] [address] 06350 #### 2131-9 #### [facility] ([id number]) [address], [address] [place] [address] Urea nitrogen [Mass/Vol] 27 mg/dL Normal 5-27 [facility] Comment on above: Performed By: #### C BCA, PINR, 10628-5, BMP, 29626-6, THYR #### [facility] ([id number]) [address] [place] [address] 33024 #### 2131-9 #### [facility] ([id number]) [address], [address] [place] [address] Glucose Glucometer (BldC) [M ass/Vol]on 12-06-2023 Glucose [Mass/Vol] 222 mg/dL High 65-99 [facility] MAGNESIUMon 12-06-2023 Magnesium [Mass/Vol] 2.1 mg/dL Normal 1.8-2.6 [facility] Comment on above: Performed By: #### C BCA, PINR, 33093-7, BMP, 86066-1, THYR #### [facility] ([id number]) [address] [place] [address] 87717 #### 2131-9 #### [facility] ([id number]) [address], [address] [place] [address] MR CERVICAL SPINE W WO CONTo n 12-06-2023 MR CERVICAL SPINE W WO CONT MR CERVICAL SPINE W WO CONT MR CERVICAL SPINE W WO CONT HISTORY: Myelopathy, acute, cervical spine. TECHNIQUE: Multiplanar multisequence MR of the cervical spine was performed prior to and following the uncomplicated administration of ProHance intravenous contrast. COMPARISON: 04/28/2022 cervical spine MRI, carotid CTA 12/03/2023. FINDINGS: Preserved cervical vertebral body heights. Straightening typical cervical lordosis. 3 mm retrolisthesis C5 on C6. No suspicious bone marrow replacing process. Asymmetric edema left 4 posterior facet. Cord visualized brainstem through the upper thoracic spine. No gross cord compression, morphologic distortion or cord signal abnormality. Multilevel discogenic disease, outside energy sales representatives levels detailed below: C2-C3: No significant focal thecal sac or neural foraminal narrowing. C3-C4:Posterior disc osteophyte complex. Mild thecal sac narrowing. Mild/moderate left, mild right, neural foraminal narrowing. Asymmetric left posterior facet arthropathy. C4-C5:Posterior disc osteophyte complex, ligamentum flavum thickening. Mild/moderate thecal sac narrowing. Moderate severe right greater than left neural foraminal narrowing. C5-C6:Posterior disc-osteophyte complex. Ligamentum flavum thickening. Moderate thecal sac narrowing. Moderate to severe bilateral neural foraminal narrowing. C6-C7:Minimal thecal sac and bilateral neural foraminal narrowing. C7-T1:Minimal thecal sac and neural foraminal narrowing. IMPRESSION: 1. Multilevel degenerative changes. Notable asymmetric left posterior facet arthropathy at C3-C4 with surrounding soft tissue and marrow edema. 2. Neural foraminal narrowing most noted, moderate to severe, at bilateral C4-C5 and C5-C6. Finalized by Moustapha Ward MD on 12/06/2023 8:09 AM Normal [facility] CBC AND AUTO DIFFon 12-05-19 24 ABSOLUTE BASOPHIL 0.0 X10E9/L Normal 0.0-0.2 [facility] Comment on above: Performed By: #### C ESTEFANIA, [facility], 86963-2 ####[facility] ([id number])[address] [place] [address] [place] [address] ABSOLUTE NEUTROPHIL 8.0 X10E9/L High 1.5-6.6 [facility] Comment on above: Performed By: #### Melodie MAC CMP, 81677-0 ####[facility] ([id number])[address] [place] [address] Basophils/100 WBC (Bld) 0.3 % Normal [facility] Comment on above: Performed By: #### Melodie MAC [facility], ####[facility] ([id number])[address] [place] [address] 62462 Eosinophils (Bld) [#/Vol] 0.0 10*3/uL Normal 0.0-0.4 [facility] Comment on above: Performed By: #### Melodie MAC [facility], ####[facility] ([id number])[address] [place] [address] 59679 Eosinophils/100 WBC (Bld) 0.1 % Normal [facility] Comment on above: Performed By: #### Melodie MAC [facility], ####[facility] ([id number])[address] [place] [address] 46661 Erythrocyte distribution width (RBC) [Ratio] 15.2 % High 11.5-15.0 [facility] Comment on above: Performed By: #### Melodie MAC [facility], ####[facility] ([id number])[address] [place] [address] 52546 Hematocrit (Bld) [Volume fraction] 32.5 % Low 39-49 [facility] Comment on above: Performed By: #### Melodie MAC CMP, ####[facility] ([id number])[address] [place] [address] 89910 Hemoglobin (Bld) [Mass/Vol] 11.2 g/dL Low 13.0-17.0 [facility] Comment on above: Performed By: #### C ESTEFANIA [facility], ####[facility] ([id number])[address] [place] [address] 10445 Lymphocytes (Bld) [#/Vol] 0.6 10*3/uL Low 1.0-3.5 [facility] Comment on above: Performed By: #### Melodie MAC [facility], ####[facility] ([id number])[address] [place] [address] 17169 Lymphocytes/100 WBC (Bld) 7.0 % Normal [facility] Comment on above: Performed By: #### Melodie MAC [facility], ####[facility] ([id number])[address] [place] [address] 35882 MCH (RBC) [Entitic mass] 28.8 pg Normal 27-34 [facility] Comment on above: Performed By: #### Melodie MAC [facility], ####[facility] ([id number])[address] [place] [address] 06808 MCHC (RBC) [Mass/Vol] 34.3 g/dL Normal 32-36 [facility] Comment on above: Performed By: #### Melodie MAC [facility], ####[facility] ([id number])[address] [place] [address] 56008 MCV (RBC) [Entitic vol] 84 fL Normal 80-100 [facility] Comment on above: Performed By: #### Melodie MAC [facility], ####[facility] ([id number])[address] [place] [address] 02542 Monocytes (Bld) [#/Vol] 0.2 10*3/uL Normal 0-0.9 [facility] Comment on above: Performed By: #### C ESTEFANIA, CMP, ####[facility] ([id number])[address] [place] [address] 06224 Monocytes/100 WBC (Bld) 2.2 % Normal [facility] Comment on above: Performed By: #### C BCA, CMP, ####[facility] ([id number])[address] [place] [address] 51896 Neutrophils/100 WBC (Bld) 90.4 % Normal [facility] Comment on above: Performed By: #### C ESTEFANIA, CMP, ####[facility] ([id number])[address] [place] [address] 40652 Platelet mean volume (Bld) [Entitic vol] 7.7 fL Normal 7-12 [facility] Comment on above: Performed By: #### Melodie MAC, CMP, ####[facility] ([id number])[address] [place] [address] 57836 Platelets (Bld) [#/Vol] 234 10*3/uL Normal 150-450 [facility] Comment on above: Performed By: #### C ESTEFANIA, CMP, ####[facility] ([id number])[address] [place] [address] 43663 RBC COUNT 3.87 X10E12/L Low 4.10-5.70 [facility] Comment on above: Performed By: #### C BCA, CMP, ####[facility] ([id number])[address] [place] [address] 76493 WBC (Bld) [#/Vol] 8.9 10*3/uL Normal 4.0-11.0 [facility] Comment on above: Performed By: #### C BCA, CMP, ####[facility] ([id number])[address] [place] [address], [place] [address] COMPREHENSIVE METABOLIC PANE True 12-05-2023 Albumin [Mass/Vol] 3.2 g/dL Normal 3.2-5.3 [facility] Comment on above: Performed By: #### C BCA, CMP, ####[facility] ([id number])[address] [place] [address] [place] [address] ALP [Catalytic activity/Vol] 53 U/L Normal 39-130 [facility] Comment on above: Performed By: #### C BCA, CMP, ####[facility] ([id number])[address] [place] [address] 04804 ALT [Catalytic activity/Vol] 9 U/L Normal 0-40 [facility] Comment on above: Performed By: #### C BCA, CMP, ####[facility] ([id number])[address] [place] [address] [place] [address] Anion gap [Moles/Vol] 11 mmol/L Normal 5-15 [facility] Comment on above: Performed By: #### C BCA, CMP, ####[facility] ([id number])[address] [place] [address] 80007 AST [Catalytic activity/Vol] 13 U/L Normal 0-41 [facility] Comment on above: Performed By: #### C BCA, CMP, ####[facility] ([id number])[address] [place] [address] [place] [address] Bilirubin [Mass/Vol] 0.2 mg/dL Low 0.3-1.2 [facility] Comment on above: Performed By: #### C BCA, CMP, ####[facility] ([id number])[address] [place] [address] [place] [address] Calcium [Mass/Vol] 8.9 mg/dL Normal 8.5-10.5 [facility] Comment on above: Performed By: #### C KELLI MAC, 14175-3 ####[facility] ([id number])[address] [place] [address] 19439 Chloride [Moles/Vol] 104 mmol/L Normal 98-109 [facility] Comment on above: Performed By: #### C KELLI MAC, 14827-6 ####[facility] ([id number])[address] [place] [address] 91452 CO2 [Moles/Vol] 22 mmol/L Normal 22-32 [facility] Comment on above: Performed By: #### C KELLI MAC, 90473-1 ####[facility] ([id number])[address] [place] [address] 42211 Creatinine [Mass/Vol] 1.47 mg/dL High 0.70-1.20 [facility] Comment on above: Result Comment: METH OD TRACEABLE TO IDMS STANDARD Performed By: #### C KELLI MAC, 46764-9 ####[facility] ([id number])[address] [place] [address] 79802 GFR/1.73 sq M.predicted among non-blacks MDRD (S/P/Bld) [Vol rate/Area] 52 mL/min/{1.73_m2} Low >59 [facility] Comment on above: Result Comment: Reported eGFR is based on the CKD-EPI 1 equation that does not use a race coefficient. Performed By: #### C KELLI MAC, 68899-6 ####[facility] ([id number])[address] [place] [address] 45373 Glucose [Mass/Vol] 262 mg/dL High 65-99 [facility] Comment on above: Performed By: #### C KELLI MAC, ####[facility] ([id number])[address] [place] [address] 15551 Potassium [Moles/Vol] 4.6 mmol/L Normal 3.5-5.0 [facility] Comment on above: Performed By: #### Melodie MAC CMP, 62447-5 ####[facility] ([id number])[address] [place] [address] 61905 Protein [Mass/Vol] 6.4 g/dL Normal 6.0-8.0 [facility] Comment on above: Performed By: #### Melodie MAC CMP, ####[facility] ([id number])[address] [place] [address] 56666 Sodium [Moles/Vol] 137 mmol/L Normal 134-146 [facility] Comment on above: Performed By: #### Melodie MAC CMP, ####[facility] ([id number])[address] [place] [address] 61892 Urea nitrogen [Mass/Vol] 28 mg/dL High 5-27 [facility] Comment on above: Performed By: #### Melodie MAC [facility], 43483-4 ####[facility] ([id number])[address] [place] [address] 36095 Glucose Glucometer (BldC) [M ass/Vol]on 12-05-2023 Glucose [Mass/Vol] 155 mg/dL High 65-99 [facility] Glucose [Mass/Vol] 213 mg/dL High 65-99 [facility] Glucose [Mass/Vol] 191 mg/dL High 65-99 [facility] Glucose [Mass/Vol] 186 mg/dL High 65-99 [facility] MAGNESIUMon 12-05-2023 Magnesium [Mass/Vol] 2.3 mg/dL Normal 1.8-2.6 [facility] Comment on above: Performed By: #### Melodie MAC CMP, ####[facility] ([id number])[address] [place] [address]290 CBC AND AUTO DIFFon 12-04-19 24 ABSOLUTE BASOPHIL 0.1 X10E9/L Normal 0.0-0.2 [facility] Comment on above: Performed By: #### C ESTEFANIA, CMP, [id number] ####[facility] ([id number])[address] [place] [address]#### [id number] ####[facility] ([id number])2130 [facility], [address] [place] [address]676 ABSOLUTE NEUTROPHIL 8.4 X10E9/L High 1.5-6.6 [facility] Comment on above: Performed By: #### C ESTEFANIA, CMP, [id number] ####[facility] ([id number])[address] [place] [address]#### [id number] ####[facility] ([id number])2130 [facility], [address] [address] Basophils/100 WBC (Bld) 0.8 % Normal P [facility] Comment on above: Performed By: #### C ESTEFANIA, CMP, [id number] ####[facility] ([id number])[address] [place] [address]#### 92762-5 ####[facility] ([id number])[address]130 [facility], [address] [address] Eosinophils (Bld) [#/Vol] 0.3 10*3/uL Normal 0.0-0.4 [facility] Comment on above: Performed By: #### C BCA, CMP, 45459-4 ####[facility] ([id number])[address] [place] [address] 56860#### 76391-3 ####[facility] ([id number])[address] [facility], [address] [address] Eosinophils/100 WBC (Bld) 2.9 % Normal [facility] Comment on above: Performed By: #### Melodie MAC CMP, 27012-1 ####[facility] ([id number])[address] [place] [address] 91702#### 73652-0 ####[facility] ([id number])[address], [address] [address] Erythrocyte distribution width (RBC) [Ratio] 15.3 % High 11.5-15.0 [facility] Comment on above: Performed By: #### Melodie MAC CMP, ####[facility] ([id number])[address] [place] [address] 05290#### 13105-4 ####[facility] ([id number])[address] [address] [place] [address] Hematocrit (Bld) [Volume fraction] 36.3 % Low 39-49 [facility] Comment on above: Performed By: #### Melodie MAC CMP, ####[facility] ([id number])[address] [place] [address] 97478#### 34988-7 ####[facility] ([id number])[address], [address] [address] Hemoglobin (Bld) [Mass/Vol] 12.3 g/dL Low 13.0-17.0 [facility] Comment on above: Performed By: #### Melodie MAC CMP, ####[facility] ([id number])[address] [place] [address] 45936#### 16382-4 ####[facility] ([id number])[address] [address] [address] Lymphocytes (Bld) [#/Vol] 1.7 10*3/uL Normal 1.0-3.5 [facility] Comment on above: Performed By: #### Melodie BCA, CMP, 11930-1 ####[facility] ([id number])[address] [place] [address] 04093#### 76764-8 ####[facility] ([id number])[address], [address] [address] Lymphocytes/100 WBC (Bld) 15.6 % Normal [facility] Comment on above: Performed By: #### C ESTEFANIA, CMP, ####[facility] ([id number])[address] [place] [address] 40661#### 41452-5 ####[facility] ([id number])[address], [address] [place] [address] 08405 MCH (RBC) [Entitic mass] 28.4 pg Normal 27-34 [facility] Comment on above: Performed By: #### Melodie MAC, CMP, ####[facility] ([id number])[address] [place] [address] 36968#### 59550-2 ####[facility] ([id number])[address], [address] [place] [address] 46136 MCHC (RBC) [Mass/Vol] 33.8 g/dL Normal 32-36 [facility] Comment on above: Performed By: #### C BCA, CMP, 81551-9 ####[facility] ([id number])[address] [place] [address] 76544#### 90204-6 ####[facility] ([id number])[address], [address] [address] MCV (RBC) [Entitic vol] 84 fL Normal 80-100 [facility] Comment on above: Performed By: #### C BCA, CMP, 13011-0 ####[facility] ([id number])[address] [place] [address] 04877#### 18686-5 ####[facility] ([id number])[address], [address] [address] Monocytes (Bld) [#/Vol] 0.6 10*3/uL Normal 0-0.9 [facility] Comment on above: Performed By: #### C BCA, CMP, ####[facility] ([id number])[address] [place] [address] 12551#### 20437-9 ####[facility] ([id number])[address], [address] [address] Monocytes/100 WBC (Bld) 5.6 % Normal [facility] Comment on above: Performed By: #### C BCA, CMP, ####[facility] ([id number])[address] [place] [address] 88405#### 04233-6 ####[facility] ([id number])[address], [address] [address] Neutrophils/100 WBC (Bld) 75.1 % Normal [facility] Comment on above: Performed By: #### C BCA, CMP, ####[facility] ([id number])[address] [place] [address] 67106#### 20359-0 ####[facility] ([id number])[address], [address] [address] Platelet mean volume (Bld) [Entitic vol] 7.7 fL Normal 7-12 [facility] Comment on above: Performed By: #### C BCA, CMP, ####[facility] ([id number])[address] [place] [address] 93385#### 56524-4 ####[facility] ([id number])[address] [place] [address], [address] [place] [address] 87479 Platelets (Bld) [#/Vol] 259 10*3/uL Normal 150-450 [facility] Comment on above: Performed By: #### C BCA, CMP, 28646-3 ####[facility] ([id number])[address] [place] [address] 39863#### 53241-8 ####[facility] ([id number])[address] [place] [address], [address] [place] [address] 30880 RBC COUNT 4.32 X10E12/L Normal 4.10-5.70 [facility] Comment on above: Performed By: #### C BCA, CMP, 00524-7 ####[facility] ([id number])[address] [place] [address] 36965#### 06404-1 ####[facility] ([id number])[address] [place] [address], [address] [place] [address] 66493 WBC (Bld) [#/Vol] 11.1 10*3/uL High 4.0-11.[address] [facility] Comment on above: Performed By: #### C BCA, CMP, 82119-1 ####[facility] ([id number])[address] [place] [address] 55202#### 13557-1 ####[facility] ([id number])[address] [place] [address], [address] [place] [address] 24393 COMPREHENSIVE METABOLIC PANE True 12-04-2023 Albumin [Mass/Vol] 3.9 g/dL Normal 3.2-5.3 [facility] Comment on above: Performed By: #### C BCA, CMP, 68145-6 ####[facility] ([id number])[address] [place] [address] 24581#### 02467-0 ####[facility] ([id number])[address], [address] [place] [address] ALP [Catalytic activity/Vol] 61 U/L Normal 39-130 [facility] Comment on above: Performed By: #### C BCA, CMP, 06822-3 ####[facility] ([id number])[address] [place] [address] 35266#### 77472-7 ####[facility] ([id number])[address] [facility], [address] [address] ALT [Catalytic activity/Vol] 10 U/L Normal 0-40 [facility] Comment on above: Performed By: #### C BCA, CMP, 59094-2 ####[facility] ([id number])[address] [place] [address] 63307#### 55105-5 ####[facility] ([id number])[address], [address] [address] Anion gap [Moles/Vol] 11 mmol/L Normal 5-15 [facility] Comment on above: Performed By: #### C BCA, CMP, 57568-0 ####[facility] ([id number])[address] [place] [address] 68664#### 39362-7 ####[facility] ([id number])[address], [address] [place] [address] AST [Catalytic activity/Vol] 15 U/L Normal 0-41 [facility] Comment on above: Performed By: #### C BCA, CMP, 65074-2 ####[facility] ([id number])[address] [place] [address]#### 01089-6 ####[facility] ([id number])[address], [address] [address] Bilirubin [Mass/Vol] 0.4 mg/dL Normal 0.3-1.2 [facility] Comment on above: Performed By: #### C BCA, CMP, 48464-7 ####[facility] ([id number])[address] [place] [address] 21025#### 83227-1 ####[facility] ([id number])[address], [address] [place] [address] 89162 Calcium [Mass/Vol] 9.3 mg/dL Normal 8.5-10.5 [facility] Comment on above: Performed By: #### C BCA, CMP, 82159-4 ####[facility] ([id number])[address] [place] [address] 19993#### 27240-6 ####[facility] ([id number])[address], [address] [place] [address] 71061 Chloride [Moles/Vol] 105 mmol/L Normal 98-109 [facility] Comment on above: Performed By: #### C BCA, CMP, 46537-7 ####[facility] ([id number])[address] [place] [address] 76922#### 89808-5 ####[facility] ([id number])[address], [address] [place] [address] CO2 [Moles/Vol] 24 mmol/L Normal 22-32 [facility] Comment on above: Performed By: #### C BCA, CMP, ####[facility] ([id number])[address] [place] [address] 67056#### 88072-7 ####[facility] ([id number])[address], [address] [address] Creatinine [Mass/Vol] 1.22 mg/dL High 0.70-1.20 [facility] Comment on above: Result Comment: METH OD TRACEABLE TO IDMS STANDARD Performed By: #### C KELLI MAC, 22625-8 ####[facility] ([id number])[address] [place] [address] 41987#### 31040-0 ####[facility] ([id number])[address] [address] GFR/1.73 sq M.predicted among non-blacks MDRD (S/P/Bld) [Vol rate/Area] 65 mL/min/{1.73_m2} Normal >59 [facility] Comment on above: Result Comment: Reported eGFR is based on the CKD-EPI 2020 equation that does not use a race coefficient. Performed By: #### C ESTEFANIA [facility], 31683-6 ####[facility] ([id number])[address] [place] [address] 55992#### 83757-5 ####[facility] ([id number])[address] [address] [place] [address] 00707 Glucose [Mass/Vol] 38 mg/dL Critically low 65-99 [facility] Comment on above: Performed By: #### C ESTEFANIA CMP, 36614-2 ####[facility] ([id number])[address] [place] [address] 92102#### 26483-1 ####[facility] ([id number])[address], [address] [place] [address] 92084 Potassium [Moles/Vol] 3.6 mmol/L Normal 3.5-5.0 [facility] Comment on above: Performed By: #### C ESTEFANIA, CMP, ####[facility] ([id number])[address] [place] [address] 80010#### 03900-7 ####[facility] ([id number])[address], [address] [place] [address] 57964 Protein [Mass/Vol] 7.5 g/dL Normal 6.0-8.0 [facility] Comment on above: Performed By: #### Melodie MAC, CMP, 25285-4 ####[facility] ([id number])[address] [place] [address] 00467#### 49251-1 ####[facility] ([id number])[address] [facility], [address] [place] [address] 58786 Sodium [Moles/Vol] 140 mmol/L Normal 134-146 [facility] Comment on above: Performed By: #### Melodie MAC, CMP, 69448-1 ####[facility] ([id number])[address] [place] [address] 32027#### 97951-6 ####[facility] ([id number])[address] [facility], [address] [place] [address] 60397 Urea nitrogen [Mass/Vol] 20 mg/dL Normal 5-27 [facility] Comment on above: Performed By: #### Melodie BCA, CMP, 45914-3 ####[facility] ([id number])[address] [place] [address] 58808#### 15583-0 ####[facility] ([id number])[address], [address] [place] [address] 15130 Glucose Glucometer (BldC) [M ass/Vol]on 12-04-2023 Glucose [Mass/Vol] 236 mg/dL High 65-99 [facility] Glucose [Mass/Vol] 125 mg/dL High 65-99 [facility] Glucose [Mass/Vol] 145 mg/dL High 65-99 [facility] Glucose [Mass/Vol] 181 mg/dL High 65-99 [facility] Glucose [Mass/Vol] 63 mg/dL Low 65-99 [facility] Lipid 1996 panelon 4 Cholesterol [Mass/Vol] 97 mg/dL Low 150-200 [facility] Comment on above: Performed By: #### Melodie MAC, KELLI, 45626-8 ####[facility] ([id number])[address] [place] [address] 52229#### 86068-7 ####[facility] ([id number])[address] [place] [address] 23182 Cholesterol in HDL [Mass/Vol] 34 mg/dL Low >39 [facility] Comment on above: Result Comment: HDL <40 mg/dL - High Risk HDL > or = 40mg/dL- Desirable HDL >60 mg/dL - Negative Risk Performed By: #### Melodie MAC, KELLI, 99271-8 ####[facility] ([id number])[address] [place] [address] 29222#### 47790-9 ####[facility] ([id number])[address] [place] [address] 65117 Cholesterol in LDL [Mass/Vol] 46 mg/dL Normal <130 [facility] Comment on above: Result Comment: LDL <100 mg/dL - Desirable LDL >160 mg/dL - High Risk Performed By: #### Melodie MAC, KELLI, 36226-4 ####[facility] ([id number])[address] [place] [address] 69863#### 05928-2 ####[facility] ([id number])[address] [facility], [address] [place] [address] 48302 Cholesterol in VLDL [Mass/Vol] 17 mg/dL Normal 0-30 [facility] Comment on above: Performed By: #### C BCA, CMP, 61179-1 ####[facility] ([id number])[address] [place] [address] 83366#### 90894-1 ####[facility] ([id number])[address] [place] [address], [address] [place] [address] 26209 CHOLESTEROL:HDL 2.9 Normal 1.0-5.0 [facility] Comment on above: Performed By: #### C BCA, CMP, ####[facility] ([id number])[address] [place] [address] 34424#### 51856-2 ####[facility] ([id number])[address] [place] [address], [address] [place] [address] 97942 Triglyceride [Mass/Vol] 84 mg/dL Normal 27-150 [facility] Comment on above: Performed By: #### C BCA, CMP, 69276-0 ####[facility] ([id number])[address] [place] [address] 02539#### 37122-1 ####[facility] ([id number])[address] [facility], [address] [place] [address] 12835 MAGNESIUMon 12-04-2023 Magnesium [Mass/Vol] 2.4 mg/dL Normal 1.8-2.6 [facility] Comment on above: Performed By: #### 2 823-3, 48607-0 ####[facility] ([id number])[address] [place] [address] 26776 Magnesium [Mass/Vol] 1.7 mg/dL Low 1.8-2.6 [facility] Comment on above: Performed By: #### C ESTEFANIA, CMP, 56946-2 ####[facility] ([id number])[address] [place] [address] 74901#### 54252-8 ####[facility] ([id number])[address] [facility], [address] [place] [address] 60639 MR BRAIN W WO CONTon 024 MR BRAIN W WO CONT MR BRAIN W WO CONT STUDY: MRI brain with without contrast . CLINICAL HISTORY: Neuro deficit, acute, stroke suspected Numbness and pain left arm since December 02. Stroke assessment COMPARISON: April 24, 2022 Procedure: Multiplanar, multisequence imaging performed through the brain, including pre and post contrast T1 weighted images using IV contrast. Findings: There are no intracranial masses, mass-effect, extra-axial fluid collection, or hydrocephalus. Sensitivity for acute hemorrhage limited on MRI, but grossly no acute hemorrhage identified. Midline sagittal structures are unremarkable including pituitary fossa, infundibulum, optic chiasm, corpus callosum, brainstem, fourth ventricle, cerebellum, and cranio-cervical junction. Flow voids documented in [place] and dural venous sinuses. No pathologic contrast enhancement. Diffusion weighted images show no evidence for acute infarct. The deep white matter shows no acute changes. IMPRESSION: * Unremarkable contrast brain MRI. No acute change. Finalized by Isreal Gregorio MD on 12/04/2023 9:33 AM Normal [facility] POTASSIUMon 12-04-2023 Potassium [Moles/Vol] 4.4 mmol/L Normal 3.5-5.0 [facility] Comment on above: Performed By: #### 2 823-3, 10627-4 ####[facility] ([id number])[address] [place] [address] 26503 BASIC METABOLIC PANLon 12-02 Anion gap [Moles/Vol] 7 mmol/L Normal 5-15 [facility] Comment on above: Performed By: #### C ESTEFANIA, PINR, 29497-8, BMP, 59630-3, THYR #### [facility] ([id number]) [address] [place] [address] 74545 #### 2131-9 #### [facility] ([id number]) [address], [address] [place] [address] Calcium [Mass/Vol] 9.1 mg/dL Normal 8.5-10.5 [facility] Comment on above: Performed By: #### C BCA, PINR, 60842-6, BMP, 67042-4, THYR #### [facility] ([id number]) [address] [place] [address] 27812 #### 9 #### [facility] ([id number]) [address], [address] [place] [address] Chloride [Moles/Vol] 103 mmol/L Normal 98-109 [facility] Comment on above: Performed By: #### C BCA, PINR, 55394-3, BMP, 77811-3, THYR #### [facility] ([id number]) [address] [place] [address] 84232 #### 2131-9 #### [facility] ([id number]) [address], [address] [place] [address] CO2 [Moles/Vol] 25 mmol/L Normal 22-32 [facility] Comment on above: Performed By: #### C BCA, PINR, 65642-5, BMP, 75459-5, THYR #### [facility] ([id number]) [address] [place] [address] 70635 #### 2131-9 #### [facility] ([id number]) [address], [address] [place] [address] Creatinine [Mass/Vol] 1.44 mg/dL High 0.70-1.20 [facility] Comment on above: Result Comment: METH OD TRACEABLE TO IDMS STANDARD Performed By: #### C ESTEFANIA PINR, 82110-6, BMP, 93904-3, THYR #### [facility] ([id number]) [address] [place] [address] 05777 #### 2132-9 #### [facility] ([id number]) [address] [facility], [address] [place] [address] GFR/1.73 sq M.predicted among non-blacks MDRD (S/P/Bld) [Vol rate/Area] 53 mL/min/{1.73_m2} Low >59 [facility] Comment on above: Result Comment: Reported eGFR is based on the CKD-EPI 2020 equation that does not use a race coefficient. Performed By: #### C ESTEFANIA PINR, 40051-4, EMILY, 66900-3, THYR #### [facility] ([id number]) [address] [place] [address] 71814 #### 2132-9 #### [facility] ([id number]) [address] [facility], [address] [place] [address] Glucose [Mass/Vol] 154 mg/dL High 65-99 [facility] Comment on above: Performed By: #### C ESTEFANIA, PINR, 71625-2, BMP, 77011-5, THYR #### [facility] ([id number]) [address] [place] [address] 91542 #### 2132-9 #### [facility] ([id number]) [address] [facility], [address] [place] [address] Potassium [Moles/Vol] 4.1 mmol/L Normal 3.5-5.0 [facility] Comment on above: Performed By: #### C ESTEFANIA, PINR, 30960-4, BMP, 24037-2, THYR #### [facility] ([id number]) [address] [place] [address] 75514 #### 2132-9 #### [facility] ([id number]) [address], [address] [place] [address] Sodium [Moles/Vol] 135 mmol/L Normal 134-146 [facility] Comment on above: Performed By: #### C BCA, PINR, 66894-5, BMP, 41088-1, THYR #### [facility] ([id number]) [address] [place] [address] 93495 #### 2131-9 #### [facility] ([id number]) [address] [facility], [address] [place] [address] Urea nitrogen [Mass/Vol] 23 mg/dL Normal 5-27 [facility] Comment on above: Performed By: #### C BCA, PINR, 58869-9, BMP, 08242-9, THYR #### [facility] ([id number]) [address] [place] [address] 73377 #### 2131-9 #### [facility] ([id number]) [address] [place] [address] CBC AND AUTO DIFFon 12-03-19 24 ABSOLUTE BASOPHIL 0.1 X10E9/L Normal 0.0-0.2 [facility] Comment on above: Performed By: #### C BCA, PINR, 95465-3, BMP, 10624-4, THYR #### [facility] ([id number]) [address] [place] [address] 91208 #### 2-9 #### [facility] ([id number]) [address], [address] [place] [address] ABSOLUTE NEUTROPHIL 4.9 X10E9/L Normal 1.5-6.6 [facility] Comment on above: Performed By: #### C BCA, PINR, 92983-2, BMP, 91867-4, THYR #### [facility] ([id number]) [address] [place] [address] #### 9 #### [facility] ([id number]) [address], [address] [place] [address] Basophils/100 WBC (Bld) 0.9 % Normal [facility] Comment on above: Performed By: #### C BCA, PINR, 31339-5, BMP, 02616-3, THYR #### [facility] ([id number]) [address] [place] [id number] #### 9 #### [facility] ([id number]) [address], [address] [place] [address] Eosinophils (Bld) [#/Vol] 0.3 10*3/uL Normal 0.0-0.4 [facility] Comment on above: Performed By: #### C BCA, PINR, 58067-2, BMP, 31262-6, THYR #### [facility] ([id number]) [address] [place] [id number] #### 9 #### [facility] ([id number]) [address], [address] [place] [address] Eosinophils/100 WBC (Bld) 4.5 % Normal [facility] Comment on above: Performed By: #### C BCA, PINR, 19849-1, BMP, 80952-4, THYR #### [facility] ([id number]) [address] [place] [address] #### 9 #### [facility] ([id number]) [address], [address] [place] [address] Erythrocyte distribution width (RBC) [Ratio] 14.9 % Normal 11.5-15.0 [facility] Comment on above: Performed By: #### C BCA, PINR, 94045-6, BMP, 91657-2, THYR #### [facility] ([id number]) [address] [place] [address] #### 2131-9 #### [facility] ([id number]) [address], [address] [place] [address] Hematocrit (Bld) [Volume fraction] 36.5 % Low 39-49 [facility] Comment on above: Performed By: #### C ESTEFANIA, PINR, 66360-6, BMP, 19983-7, THYR #### [facility] ([id number]) [address] [place] [address] #### 2131-9 #### [facility] ([id number]) [address], [address] [place] [address] Hemoglobin (Bld) [Mass/Vol] 12.4 g/dL Low 13.0-17.0 [facility] Comment on above: Performed By: #### C BCA, PINR, 22416-1, BMP, 36763-4, THYR #### [facility] ([id number]) [address] [place] [address] #### 9 #### [facility] ([id number]) [address], [address] [place] [address] Lymphocytes (Bld) [#/Vol] 1.5 10*3/uL Normal 1.0-3.5 [facility] Comment on above: Performed By: #### C BCA, PINR, 11245-9, BMP, 26103-5, THYR #### [facility] ([id number]) [address] [place] [address]14 #### 2-9 #### [facility] ([id number]) [address] [facility], [address] [place] [address] Lymphocytes/100 WBC (Bld) 21.1 % Normal [facility] Comment on above: Performed By: #### C BCA, PINR, 39407-4, BMP, 17946-4, THYR #### [facility] ([id number]) [address] [place] [address] 44365 #### 2131-9 #### [facility] ([id number]) [address] [place] [address], [address] [place] [address] MCH (RBC) [Entitic mass] 28.5 pg Normal 27-34 [facility] Comment on above: Performed By: #### C BCA, PINR, 56049-7, BMP, 43176-0, THYR #### [facility] ([id number]) [address] [place] [address] 20427 #### 2-9 #### [facility] ([id number]) [address] [place] [address], [address] [place] [address] MCHC (RBC) [Mass/Vol] 34.0 g/dL Normal 32-36 [facility] Comment on above: Performed By: #### C BCA, PINR, 55525-6, BMP, 43353-2, THYR #### [facility] ([id number]) [address] [place] [address] 73899 #### 2132-9 #### [facility] ([id number]) [address] [place] [address] [address] [place] [address] MCV (RBC) [Entitic vol] 84 fL Normal 80-100 [facility] Comment on above: Performed By: #### C BCA, PINR, 80298-9, BMP, 07565-7, THYR #### [facility] ([id number]) [address] [place] [address] 48217 #### 2132-9 #### [facility] ([id number]) [address], [address] [place] [address] Monocytes (Bld) [#/Vol] 0.4 10*3/uL Normal 0-0.9 [facility] Comment on above: Performed By: #### C BCA, PINR, 35972-8, BMP, 48335-5, THYR #### [facility] ([id number]) [address] [place] [address] #### 2131-9 #### [facility] ([id number]) [address], [address] [place] [address] Monocytes/100 WBC (Bld) 6.1 % Normal [facility] Comment on above: Performed By: #### C BCA, PINR, 25663-0, BMP, 40785-6, THYR #### [facility] ([id number]) [address] [place] [address] 70397 #### 2-9 #### [facility] ([id number]) [address], [address] [place] [address] Neutrophils/100 WBC (Bld) 67.4 % Normal [facility] Comment on above: Performed By: #### C BCA, PINR, 52258-7, BMP, 83736-6, THYR #### [facility] ([id number]) [address] [place] [address] 11096 #### 2-9 #### [facility] ([id number]) [address], [address] [place] [address] Platelet mean volume (Bld) [Entitic vol] 7.7 fL Normal 7-12 [facility] Comment on above: Performed By: #### C BCA, PINR, 18465-9, BMP, 27238-2, THYR #### [facility] ([id number]) [address] [place] [address] 91459 #### 9 #### [facility] ([id number]) [address], [address] [place] [address] Platelets (Bld) [#/Vol] 229 10*3/uL Normal 150-450 [facility] Comment on above: Performed By: #### C BCA, PINR, 55561-7, BMP, 12057-5, THYR #### [facility] ([id number]) [address] [place] [address] 08746 #### 9 #### [facility] ([id number]) [address], [address] [place] [address] RBC COUNT 4.36 X10E12/L Normal 4.10-5.70 [facility] Comment on above: Performed By: #### C BCA, PINR, 03445-3, BMP, 36613-8, THYR #### [facility] ([id number]) [address] [place] [address] 15441 #### 9 #### [facility] ([id number]) [address], [address] [place] [address] WBC (Bld) [#/Vol] 7.2 10*3/uL Normal 4.0-11.0 [facility] Comment on above: Performed By: #### C BCA, PINR, 73709-9, BMP, 94761-7, THYR #### [facility] ([id number]) [address] [place] [address] 40548 #### 9 #### [facility] ([id number]) [address], [address] [place] [address] CT BRAIN WO CONT STROKE ALER Ton 12-03-2023 CT BRAIN WO CONT STROKE ALERT CT BRAIN WO CONT STROKE ALERT CLINICAL INFORMATION: Stroke, follow up; assessment of stroke/hemorrhage: TECHNIQUE: CT BRAIN WO CONT STROKE ALERT CT images of the brain were obtained. Pagan-white differentiation appears intact. There is no acute intracranial hemorrhage. No mass or midline shift. Cavum septum pellucidum noted. Osseous structures appear intact. IMPRESSION: No acute intracranial findings. All CT scans at this facility use dose modulation, iterative reconstruction, and/or weight based dosing when appropriate to reduce radiation dose to as low as reasonably achievable. Finalized by Dariusz Ramirse MD on 12/03/2023 8:24 PM Normal [facility] CT CTA CAROTIDon 12-03-[address] CTA CAROTID Examination: CTA carotids Clinical History: Neuro deficit, acute, stroke suspected Comparison: July 30, 2023 CT CTA CAROTID Procedure: Multidetector CT angiogram performed through the cervical portion of the carotid arteries without complication, including source images and maximum intensity projection 3-D images displayed and reviewed on an independent PACS workstation by the radiologist. Automated exposure control was utilized. The [place] Symptomatic Carotid Endarterectomy Trial (NASCET)calculation of ICA stenosis percentage using the following formula with a threshold of 60 to 70%: % ICA stenosis = (1 - [narrowest ICA diameter/diameter normal distal cervical ICA]) x 100 Findings: 3-D images confirm the source images. Within the limitations of CT angiography, the vessels are normal in course and caliber with no aneurysm, dissection, or occlusion. Heavy calcific plaque deposition origin bilateral internal carotid arteries without significant stenosis and without change No hemodynamically significant stenosis of the internal carotid artery relative to the distal internal carotid artery diameter. Flow is demonstrated within bilateral vertebral arteries, and bilateral internal, external, and common carotid arteries. IMPRESSION: * No hemodynamically significant stenosis of the internal carotid artery identified. All CT scans at this facility use dose modulation, iterative reconstruction, and/or weight based dosing when appropriate to reduce radiation dose to as low as reasonably achievable. For Reference: Carotid Doppler: Severe (>70%) carotid artery stenosis is diagnosed if at least two of the following parameters are present: PSV >140 cm/s, end-diastolic velocity >125 cm/s, and ICA/CCA ratio >3, as well as >50% ICA diameter reduction on the transverse B-mode images. Decreased flow velocities <50 cm/s and an extensive lesion on B-mode are interpreted as near occlusion. For Carotid doppler reports, click Chart review, then cardiovascular tab at top Finalized by Isreal Gregorio MD on 12/03/2023 8:42 PM Normal [facility] CT CTA HEADon 12-03-[address] CTA HEAD History: Neuro deficit, acute, stroke suspected Headache for 3 days and today difficulty using the left arm Comparison July 30, 2023 Procedure: CT CTA HEAD Multidetector CT angiogram performed with IV contrast through the [place] using 3 -D Maximum intensity projection reconstructions constructed under concurrent physician supervision on a independent workstation. Arterial blood flow was measured to assist the stroke clinical team in the diagnosis of large vessel occlusion in patients undergoing screening for acute ischemic stroke using Rapid AI software when clinically indicated. Automated exposure control was utilized. All CT scans at this facility use dose modulation, iterative reconstruction, and/or weight based dosing when appropriate to reduce radiation dose to as low as reasonably achievable. Findings: There is grossly no aneurysm or major vessel occlusion of the [place], within limitations of CT. Flow is demonstrated within the vertebral arteries, basilar artery, bilateral posterior cerebral arteries, middle cerebral arteries and anterior cerebral arteries. 3D reformatted images confirm the source data findings. IMPRESSION: * Unremarkable CT angiogram [place]. * If you have high clinical suspicion for occult process such as an infarct consider CT perfusion and brain MRI. Finalized by Isreal Gregorio MD on 12/03/2023 8:40 PM Normal [facility] Glucose Glucometer (BldC) [M ass/Vol]on 12-03-2023 Glucose [Mass/Vol] 171 mg/dL High 65-99 [facility] HGB A1C (GLYCO-HGB)on 2023 Glucose [Mass/Vol] 206 mg/dL Normal [facility] Comment on above: Performed By: #### C BCA, PINR, 62276-2, BMP, 62419-9, THYR ####[facility] ([id number])[address] [place] [address] [place] [address]#### 2132-9 ####[facility] ([id number])[address] [place] [address], [address] [address] HbA1c (Bld) [Mass fraction] 8.8 % High 4.4-5.6 [facility] Comment on above: Result Comment: NOTE ADA Guidelines Result HgbA1c Normal : less than 5.7 % Prediabetes : 5.7 % to 6.4 % Diabetes : > 6.4 % Use with caution in patients with abnormal hemoglobin variants as the half-life of red blood cells and in vivo glycation rates are affected. Performed By: #### C ESTEFANIA, PINR, 84055-9, BMP, 81694-3, THYR ####[facility] ([id number])[address] [place] [address]#### 2132-9 ####[facility] ([id number])[address] [place] [address], [address] [address] PROTIME AND INRon 12-03-2023 INR Coag (PPP) [Relative time] 0.9 {INR} Normal 0.8-1.1 [facility] Comment on above: Performed By: #### C BCA, PINR, 46071-9, BMP, 11949-5, THYR #### [facility] ([id number]) [address] [place] [address] 48343 #### 2132-9 #### [facility] ([id number]) [address] [place] [address] PT Coag (PPP) [Time] 11.0 s Normal 9.8-13.2 [facility] Comment on above: Result Comment: NEW REFERENCE RANGE Performed By: #### C BCA, PINR, 24715-6, BMP, 12396-3, THYR #### [facility] ([id number]) [address] [place] [address] 22203 #### 2132-9 #### [facility] ([id number]) [address], [address] [place] [address] THYROID PROFILEon 12-03-2023 Free T4 [Mass/Vol] 0.66 ng/dL Normal 0.61-1.60 [facility] Comment on above: Performed By: #### C BCA, PINR, 91440-2, BMP, 67376-9, THYR #### [facility] ([id number]) [address] [place] [address] 70655 #### 2-9 #### [facility] ([id number]) [address], [address] [place] [address] TSH 1.10 uIU/mL Normal 0.49-4.67 [facility] Comment on above: Performed By: #### C BCA, PINR, 08943-7, BMP, 69842-8, THYR #### [facility] ([id number]) [address] [place] [address] 99955 #### 2-9 #### [facility] ([id number]) [address], [address] [place] [address] Troponin I.cardiac High sens itivity method [Mass/Vol]on 12-03-2023 1 HOUR TROP I, HIGH SENSITIVITY 9 ng/L Normal <21 [facility] Comment on above: Performed By: #### 8 9579-7 ####[facility] ([id number])[address] [place] [address] TROPONIN I, HIGH SENSITIVITY 8 ng/L Normal <21 [facility] Comment on above: Performed By: #### C BCA, PINR, 77201-5, BMP, 90235-5, THYR #### [facility] ([id number]) [address] [place] [address] 02928 #### 2132-9 #### [facility] ([id number]) [address] [facility] [facility], [address] [place] [address] URINE CULTUREon 12-03-2023 Bacteria identified Cx Nom (U) CULTURE RESULTS NO GROWTH AT <1000 CFU/mL Normal [facility] Comment on above: Performed By: #### C BCA, PINR, 31763-8, BMP, 05490-3, THYR #### [facility] ([id number]) [address] [place] [address] 43934 #### 2132-9 #### [facility] ([id number]) [address] [facility] [facility], [address] [place] [address] URN MACROSCOPIC NURon 2023 BILIRUBIN JOSE Negative Normal NEG [facility] Comment on above: Performed By: #### N UM ####[facility] ([id number])[address] [place] [address] [place] [address] BLOOD/HGB JOSE Negative Normal NEG [facility] Comment on above: Performed By: #### N UM ####[facility] ([id number])[address] [place] [address], [place] [address] GLUCOSE JOSE Negative Normal NEG [facility] Comment on above: Performed By: #### N UM ####[facility] ([id number])[address] [place] [address], [place] [address] KETONES JOSE Negative Normal NEG [facility] Comment on above: Performed By: #### N UM ####[facility] ([id number])[address] [place] [address], [place] [address] LEUKOCYTE ESTERASE JOSE Negative Normal NEG [facility] Comment on above: Performed By: #### N UM ####[facility] ([id number])[address] [place] [address], [place] [address] NITRITE JOSE Negative Normal NEG [facility] Comment on above: Performed By: #### N UM ####[facility] ([id number])[address] [place] [address] PH JOSE 7.0 Normal 5.0-8.5 [facility] Comment on above: Performed By: #### N UM ####[facility] ([id number])[address] [place] [address] PROTEIN JOSE Negative Normal NEG [facility] Comment on above: Performed By: #### N UM ####[facility] ([id number])[address] [place] [address] SPECIFIC GRAVITY JOSE 1.015 Normal 1.003-1.035 [facility] Comment on above: Performed By: #### N UM ####[facility] ([id number])[address] [place] [address] UROBILINOGEN JOSE 0.2 eu/dL Normal <1.1 [facility] Comment on above: Performed By: #### N UM ####[facility] ([id number])[address] [place] [address] VITAMIN B12on 12-03-2023 Cobalamin (Vitamin B12) [Mass/Vol] 189 pg/mL Normal 180-914 [facility] Comment on above: Performed By: #### C BCA, PINR, 52371-6, BMP, 04744-2, THYR #### [facility] ([id number]) [address] [place] [address] #### 2132-9 #### [facility] ([id number]) [address] [facility], [address] [place] [address] aPTT Coag (PPP) [Time]on aPTT Coag (Bld) [Time] 38 s High 26-37 [facility] Comment on above: Result Comment: NEW REFERENCE RANGE Performed By: #### C BCA, PINR, 64593-4, BMP, 74784-5, THYR #### [facility] ([id number]) [address] [facility], [place] [address] #### 2132-9 #### [facility] ([id number]) [address] [place] [address], [address] [place] [address] US ankle/arm indiceson 11-30 US ankle/arm indices [facility] [address] [place] [address] Ultrasound Report Signed Patient: Roshan Hoang JR MR#: [id number] 225 : 1955 Acct:[id number] Age/Sex: 68 / M ADM Date: 11/24/23 Loc: [facility] Room: Type: [facility] Attending Dr: Daniele Aaron MD Ordering Provider: Daniele Aaron MD Date of Service: 11/24/23 US/US ankle/arm indices: I96 Copies to: Daniele Aaron MD LOWER EXTREMITY SEGMENTAL ARTERIAL DOPSCAN (PVR) INDICATION: Surveillance after intervention. PROCEDURE: Right arm blood pressure is 122 , left is 130 . Pressures at the right ankle are 152 using the posterior tibial artery, and 114 using the dorsalis pedis artery with ankle-brachial index of 1.17 0.88 . Pressures at the left ankle are 126 using the posterior tibial artery, and 121 with ankle-brachial index of 0.97 0.93 . Wave forms by plethysmography are normal. US/US ankle/arm indices IMPRESSION: NO HEMODYNAMICALLY SIGNIFICANT PERIPHERAL VASCULAR OCCLUSIVE DISEASE AT REST IN EITHER LOWER EXTREMITY. Left lower extremity AXEL prior to intervention was 0.73. Now it is 0.97. Significant improvement noted. Impression dictated by: Daniele Aaron MD12/01/2023 9:04 AM Dictation Location: [place] [address] Tech: Viki Car Transcribed By: LOLY 12/01/23 09 Dictated By: Daniele Aaron MD 12/01/23 0903 Signed By: 12/01/23 0904 Normal [facility] Bacteria identified Aer cx N om (Unsp spec)Ordered By: Pilar Sood on 11-24-2023 Superficial Wound Culture Klebsiella pneumoniae [facility] Superficial Wound Cultureon 11-24-2023 Superficial Wound Culture ORGANISM: Escherichia coli (O:ESCCOL) Quantity of Growth Moderate Growth ORGANISM: Klebsiella pneumoniae (O:KLEPNE) Quantity of Growth Moderate Growth Aerobic LARS Charge (NMIC56) ---- SUSCEPTIBILITY --- ORGANISM: O:ESCCOL ANTIBIOTIC INTERPRETATION LARS Amikacin S <16 Amoxacillin/K Clavulanate S <8 Ampicillin S <8 Ampicillin/Sulbactam S <4 Aztreonam S <4 Cefazolin S <2 Cefepime S <2 Ceftazidime S <1 Ceftazidime/Avibactam S <4 Ceftolozane/Tazobacta m S <2 Ceftriaxone S <1 Cefuroxime S <4 Ciprofloxacin S <0.25 Ertapenem S <0.5 Gentamicin S <2 Levofloxacin S <0.5 Meropenem S <1 Meropenem/Vaborbactam S <2 Piperacillin/Tazobact am S <8 Tetracycline S <4 Tigecycline S <2 Tobramycin S <2 Trimethoprim/Sulfamet hoxazole S <0.5 Aerobic LARS Charge (NMIC56) ---- SUSCEPTIBILITY --- ORGANISM: O:KLEPNE ANTIBIOTIC INTERPRETATION LARS Amikacin S <16 Amoxacillin/K Clavulanate S <8 Ampicillin/Sulbactam S <4 Aztreonam S <4 Cefazolin S <2 Cefepime S <2 Ceftazidime S <1 Ceftazidime/Avibactam S <4 Ceftolozane/Tazobacta m S <2 Ceftriaxone S <1 Cefuroxime S <4 Ciprofloxacin S <0.25 Ertapenem S <0.5 Gentamicin S <2 Levofloxacin S <0.5 Meropenem S <1 Meropenem/Vaborbactam S <2 Piperacillin/Tazobact am S <8 Tetracycline S <4 Tigecycline S <2 Tobramycin S <2 Trimethoprim/Sulfamet hoxazole S <0.5 S = SUSCEPTIBLE I = INTERMEDIATE R = RESISTANT BLANK = DATA NOT AVAILABLE, OR DRUG NOT ADVISABLE OR TESTED R* = RESISTANCE DUE TO EXTENDED SPECTRUM BETA-LACTAMASES ESBL = EXTENDED SPECTRUM BETA-LACTAMASE TFG = THYMIDINE-DEPENDENT STRAIN RIDDHI = BETA-LACTAMASE POSITIVE IB = INDUCIBLE BETA-LACTAMASE. APPEARS IN PLACE OF 'S' WITH SPECIES KNOWN TO POSSESS INDUCIBLE BETA-LACTAMASES. POTENTIALLY THEY MAY BECOME RESISTANT TO ALL B-LACTAM DRUGS. PERFORMED BY: [place] [address] PATHOLOGIST [employer]ILING [employer] DANDRE MEDINA M.D. Normal [facility] Comment on above: Performed By: #### C USUP #### [address] Basic Metabolic Panelon 10-14 Anion gap [Moles/Vol] 10.3 mmol/L Normal 6.0-15.0 [facility] Comment on above: Performed By: #### B MP #### [address] Calcium [Mass/Vol] 8.2 mg/dL Low 8.6-10.3 [facility] Comment on above: Performed By: #### B MP #### [address] Chloride [Moles/Vol] 106 mmol/L Normal 98-107 [facility] Comment on above: Performed By: #### B MP #### [address] CO2 [Moles/Vol] 28.8 mmol/L Normal 21.0-31.0 [facility] Comment on above: Performed By: #### B MP #### [address] Creatinine [Mass/Vol] 1.12 mg/dL Normal 0.70-1.30 [facility] Comment on above: Performed By: #### B MP #### [address] Creatinine Clr Calc Pharmacy 69.29 Normal [facility] Comment on above: Result Comment: PERF ORMED BY: [place] [address] PATHOLOGIST [employer]ILING [employer] DANDRE MEDINA M.D. Performed By: #### B MP #### [place] [address] [place] GFR/1.73 sq M.predicted MDRD (S/P/Bld) [Vol rate/Area] mL/min/{1.73_m2} Normal [facility] Comment on above: Performed By: #### B MP #### [address] Glucose [Mass/Vol] 106 mg/dL High 70-100 [facility] Comment on above: Result Comment: [place] Glucose Reference Range is dependent on time and content of last meal. Glucose of more than 200 mg/dL in a nonstressed, ambulatory subject supports the diagnosis of Diabetes Mellitus. ADA recommended reference range Performed By: #### B MP #### [address] Potassium [Moles/Vol] 4.1 mmol/L Normal 3.5-5.1 [facility] Comment on above: Performed By: #### B MP #### [place] [address] [place] Sodium [Moles/Vol] 141 mmol/L Normal 136-145 [facility] Comment on above: Performed By: #### B MP #### [address] Urea nitrogen [Mass/Vol] 12 mg/dL Normal 7-25 [facility] Comment on above: Performed By: #### B MP #### [place] [address] [place] Basophils Auto (Bld) [#/Vol] Ordered By: Krysta Beasley on 10-25-2023 Basophils (Bld) [#/Vol] 0.1 10*3/uL 0.0-0.2 [facility] Basophils/100 WBC Auto (Bld) Ordered By: Krysta Beasley on 10-25-2023 Basophils/100 WBC (Bld) 0.7 % . F [facility] Calcium [Mass/volume] in Ser um or PlasmaOrdered By: Obaydah Daromar on 10-25-2023 Calcium [Mass/Vol] 8.2 mg/dL 8.6-10.3 [facility] Carbon dioxide, total [Moles /volume] in Serum or PlasmaOrdered By: Obaydah Daromar on 10-25-2023 CO2 [Moles/Vol] 28.8 mmol/L 21.0-31.0 [facility] Chloride [Moles/volume] in S timur or PlasmaOrdered By: Obaydah Daromar on 10-25-2023 Chloride [Moles/Vol] 106 mmol/L 98-107 [facility] Complete Blood Count Auto Di ffon 10-25-2023 Basophils (Bld) [#/Vol] 0.1 10*3/uL Normal 0.0-0.2 [facility] Comment on above: Result Comment: PERF ORMED BY: [place] [address] PATHOLOGIST [employer]ILING [employer] DANDRE MEDINA M.D. Performed By: #### C MP, LACTIC, CUBLD, CBC #### [facility] [address] [place] [address] [place] Basophils/100 WBC (Bld) 0.7 % Normal . T [facility] Comment on above: Performed By: #### C MP, LACTIC, CUBLD, CBC #### [facility] [address] [place] [address] [place] Eosinophils (Bld) [#/Vol] 0.2 10*3/uL Normal 0.0-0.45 [facility] Comment on above: Performed By: #### C MP, LACTIC, CUBLD, CBC #### [facility] [address] [place] [address] [place] Eosinophils/100 WBC (Bld) 2.0 % Normal . [facility] Comment on above: Performed By: #### C MP, LACTIC, CUBLD, CBC #### [address] Erythrocyte distribution width (RBC) [Ratio] 14.2 % Normal 12.0-14.8 [facility] Comment on above: Performed By: #### C MP, LACTIC, CUBLD, CBC #### [address] Hematocrit (Bld) [Volume fraction] 34.7 % Low 38.8-50.0 [facility] Comment on above: Performed By: #### C MP, LACTIC, CUBLD, CBC #### [address] Hemoglobin (Bld) [Mass/Vol] 11.5 g/dL Low 13.0-17.0 [facility] Comment on above: Performed By: #### C MP, LACTIC, CUBLD, CBC #### [address] Lymphocytes (Bld) [#/Vol] 1.4 10*3/uL Normal 1.00-4.8 [facility] Comment on above: Performed By: #### C MP, LACTIC, CUBLD, CBC #### [address] Lymphocytes/100 WBC (Bld) 18.0 % Normal . [facility] Comment on above: Performed By: #### C MP, LACTIC, CUBLD, CBC #### [address] MCH (RBC) [Entitic mass] 28.0 pg Normal 27.5-35.2 [facility] Comment on above: Performed By: #### C MP, LACTIC, CUBLD, CBC #### [address] MCV (RBC) [Entitic vol] 84.2 fL Normal 83.5-101 T [facility] Comment on above: Performed By: #### C MP, LACTIC, CUBLD, CBC #### [address] Mean Corpuscular HGB Conc 33.2 g/dL Normal 32.5-35.6 [facility] Comment on above: Performed By: #### C MP, LACTIC, CUBLD, CBC #### [address] Monocytes (Bld) [#/Vol] 0.6 10*3/uL Normal 0.0-0.8 [facility] Comment on above: Performed By: #### C MP, LACTIC, CUBLD, CBC #### [address] Monocytes/100 WBC (Bld) 7.2 % Normal . T david [facility] Comment on above: Performed By: #### C MP, LACTIC, CUBLD, CBC #### [address] Neutrophils (Bld) [#/Vol] 5.6 10*3/uL Normal 1.8-7.7 [facility] Comment on above: Performed By: #### C MP, LACTIC, CUBLD, CBC #### [place] [address] [place] Neutrophils/100 WBC (Bld) 72.1 % Normal . [facility] Comment on above: Performed By: #### C MP, LACTIC, CUBLD, CBC #### [address] NRBC% 0.0 /100{WBC} Normal 0-0.5 [facility] Comment on above: Performed By: #### C MP, LACTIC, CUBLD, CBC #### [address] Platelet mean volume (Bld) [Entitic vol] 7.2 fL Normal 6.6-10.1 [facility] Comment on above: Performed By: #### C MP, LACTIC, CUBLD, CBC #### [place] [address] [place] Platelets (Bld) [#/Vol] 315 10*3/uL Normal 150-450 [facility] Comment on above: Performed By: #### C MP, LACTIC, CUBLD, CBC #### [facility] [address] RBC (Bld) [#/Vol] 4.13 10*6/uL Normal 3.90-5.60 [facility] Comment on above: Performed By: #### C MP, LACTIC, CUBLD, CBC #### [facility] [address] WBC (Bld) [#/Vol] 7.7 10*3/uL Normal 4.1-10.5 [facility] Comment on above: Performed By: #### C MP, LACTIC, CUBLD, CBC #### [facility] [address] Creatinine [Mass/volume] in Serum or PlasmaOrdered By: Trevon Bailey on 10-25-2023 Creatinine [Mass/Vol] 1.12 mg/dL 0.70-1.30 [facility] Eosinophils Auto (Bld) [#/Vo l]Ordered By: Krysta Beasley on 10-25-2023 Eosinophils (Bld) [#/Vol] 0.2 10*3/uL 0.0-0.45 [facility] Eosinophils/100 WBC Auto (Bl d)Ordered By: Krysta Beasley on 10-25-2023 Eosinophils/100 WBC (Bld) 2.0 % . [facility] Erythrocyte distribution wid th Auto (RBC) [Ratio]Ordered By: Krysta Beasley on 10-25-2023 Erythrocyte distribution width (RBC) [Ratio] 14.2 % 12.0-14.8 [facility] Glucose Glucometer (BldC) [M ass/Vol]Ordered By: Emmanuel Zazueta on 10-25-2023 Glucose [Mass/Vol] 202 mg/dL [facility] Comment on above: Random Glucose Refer ence Range is dependent on time and content of last meal. Glucose of more than 200 mg/dL in a nonstressed, ambulatory subject supports the diagnosis of Diabetes Mellitus. Glucose Poct Glucometerson 0 10-25-2023 Glucose [Mass/Vol] 202 mg/dL Normal [facility] Comment on above: Result Comment: [place] om Glucose Reference Range is dependent on time and content of last meal. Glucose of more than 200 mg/dL in a nonstressed, ambulatory subject supports the diagnosis of Diabetes Mellitus. PERFORMED BY: [place] [id number] PATHOLOGIST TAILING [employer] DANDRE MEDINA M.D. Performed By: #### G LULS #### Point of Care testing , Glucose [Mass/Vol] 64 mg/dL Normal [facility] Comment on above: Result Comment: [place] om Glucose Reference Range is dependent on time and content of last meal. Glucose of more than 200 mg/dL in a nonstressed, ambulatory subject supports the diagnosis of Diabetes Mellitus. PERFORMED BY: [place] [id number] PATHOLOGIST TAILING [employer] DANDRE MEDINA M.D. Performed By: #### C MP, LACTIC, CUBLD, CBC #### [address] Glucose [Mass/Vol] 116 mg/dL Normal [facility] Comment on above: Result Comment: [place] om Glucose Reference Range is dependent on time and content of last meal. Glucose of more than 200 mg/dL in a nonstressed, ambulatory subject supports the diagnosis of Diabetes Mellitus. PERFORMED BY: [address] [id number] PATHOLOGIST [employer]ILING [employer] DANDRE MEDINA M.D. Performed By: #### C MP, LACTIC, CUBLD, CBC #### [address] Glucose [Mass/Vol] 137 mg/dL Normal [facility] Comment on above: Result Comment: [place] om Glucose Reference Range is dependent on time and content of last meal. Glucose of more than 200 mg/dL in a nonstressed, ambulatory subject supports the diagnosis of Diabetes Mellitus. PERFORMED BY: [place] [id number] PATHOLOGIST TAILING HAND JIANLAN SUN M.D. Performed By: #### C MP, LACTIC, CUBLD, CBC #### [facility] [address] Glucose [Mass/volume] in Ser um or PlasmaOrdered By: Trevon Bailey on 10-25-2023 Glucose [Mass/Vol] 106 mg/dL 70-100 [facility] Comment on above: ADA recommended refe rence rangeRandom Glucose Reference Range is dependent on time and content of last meal. Glucose of more than 200 mg/dL in a nonstressed, ambulatory subject supports the diagnosis of Diabetes Mellitus. Hematocrit Auto (Bld) [Volum e fraction]Ordered By: Krysta Beasley on 10-25-2023 Hematocrit (Bld) [Volume fraction] 34.7 % 38.8-50.0 [facility] Hemoglobin [Mass/volume] in BloodOrdered By: Krysta Beasley on 10-25-2023 Hemoglobin (Bld) [Mass/Vol] 11.5 g/dL 13.0-17.0 [facility] Leukocytes [#/volume] correc ileana for nucleated erythrocytes in Blood by Automated counOrdered By: Krysta Beasley on 10-25-2023 WBC corrected for nucl RBC Auto (Bld) [#/Vol] 7.7 10*3/uL 4.1-10.5 [facility] Lymphocytes Auto (Bld) [#/Vo l]Ordered By: Krysta Beasley on 10-25-2023 Lymphocytes (Bld) [#/Vol] 1.4 10*3/uL 1.00-4.8 [facility] Lymphocytes/100 WBC Auto (Bl d)Ordered By: Krysta Beasley on 10-25-2023 Lymphocytes/100 WBC (Bld) 18.0 % . [facility] MCH Auto (RBC) [Entitic mass ]Ordered By: Krysta Beasley on 10-25-2023 MCH (RBC) [Entitic mass] 28.0 pg 27.5-35.2 [facility] MCHC Auto (RBC) [Mass/Vol]Or dered By: Krysta Beasley on 10-25-2023 MCHC (RBC) [Mass/Vol] 33.2 g/dL 32.5-35.6 [facility] MCV Auto (RBC) [Entitic vol] Ordered By: Krysta Beasley on 10-25-2023 MCV (RBC) [Entitic vol] 84.2 fL 83.5-101 F [facility] Monocytes Auto (Bld) [#/Vol] Ordered By: Krysta Beasley on 10-25-2023 Monocytes (Bld) [#/Vol] 0.6 10*3/uL 0.0-0.8 [facility] Monocytes/100 WBC Auto (Bld) Ordered By: Krysta Beasley on 10-25-2023 Monocytes/100 WBC (Bld) 7.2 % . [facility] Neutrophils Auto (Bld) [#/Vo l]Ordered By: Krysta Beasley on 10-25-2023 Neutrophils (Bld) [#/Vol] 5.6 10*3/uL 1.8-7.7 [facility] Neutrophils/100 WBC Auto (Bl d)Ordered By: Krysta Beasley on 10-25-2023 Neutrophils/100 WBC (Bld) 72.1 % . [facility] No Panel InformationOrdered By: Trevon Bailey on 10-25-2023 Estimated GFR (CKD-EPI) > 60.0 mL/Min [facility] Creatinine Clearance (Chem 69.29 [facility] Nucleated erythrocytes [Pres ence] in Blood by Automated countOrdered By: Krysta Beasley on 10-25-2023 Nucleated RBC Auto Ql (Bld) 0.0 /100{WBC} 0-0.5 [facility] Platelet mean volume Auto (B ld) [Entitic vol]Ordered By: Krysta Beasley on 10-25-2023 Platelet mean volume (Bld) [Entitic vol] 7.2 fL 6.6-10.1 [facility] Platelets Auto (Bld) [#/Vol] Ordered By: Krysta Beasley on 10-25-2023 Platelets (Bld) [#/Vol] 315 10*3/uL 150-450 [facility] Potassium [Moles/volume] in Serum or PlasmaOrdered By: Obronadatigre Thorneomamario alberto on 10-25-2023 Potassium [Moles/Vol] 4.1 mmol/L 3.5-5.1 [facility] RBC Auto (Bld) [#/Vol]Ordere d By: Krysta Beasley on 10-25-2023 RBC (Bld) [#/Vol] 4.13 10*6/uL 3.90-5.60 [facility] Serum or plasma anion gap de terminationOrdered By: Kimberlydatigre Thorneomar on 10-25-2023 Anion gap [Moles/Vol] 10.3 mmol/L 6.0-15.0 [facility] Sodium [Moles/volume] in Ser um or PlasmaOrdered By: Obaydah Daromar on 10-25-2023 Sodium [Moles/Vol] 141 mmol/L 136-145 [facility] Urea nitrogen [Mass/volume] in Serum or PlasmaOrdered By: Obaydah Daromar on 10-25-2023 Urea nitrogen [Mass/Vol] 12 mg/dL 7-25 [facility] WBC Auto (Bld) [#/Vol]Ordere d By: Krysta Beasley on 10-25-2023 WBC (Bld) [#/Vol] 7.7 10*3/uL 4.1-10.5 [facility] Basic Metabolic Panelon 10-14 Anion gap [Moles/Vol] 11.4 mmol/L Normal 6.0-15.0 [facility] Comment on above: Performed By: #### C MP, LACTIC, CUBLD, CBC #### [facility] [address] [place] [address] [place] Calcium [Mass/Vol] 8.5 mg/dL Low 8.6-10.3 [facility] Comment on above: Performed By: #### C MP, LACTIC, CUBLD, CBC #### [facility] [address] [place] [id number] [place] Chloride [Moles/Vol] 104 mmol/L Normal 98-107 [facility] Comment on above: Performed By: #### C MP, LACTIC, CUBLD, CBC #### [facility] [address] [place] [id number] [place] CO2 [Moles/Vol] 28.6 mmol/L Normal 21.0-31.0 [facility] Comment on above: Performed By: #### C MP, LACTIC, CUBLD, CBC #### [facility] [address] Creatinine [Mass/Vol] 1.06 mg/dL Normal 0.70-1.30 [facility] Comment on above: Performed By: #### C MP, LACTIC, CUBLD, CBC #### [facility] [address] [place] [address] [place] Creatinine Clr Calc Pharmacy 73.21 Normal [facility] Comment on above: Result Comment: PERF ORMED BY: [place] [address] PATHOLOGIST [employer]ILING [employer] DANDRE MEDINA M.D. Performed By: #### C MP, LACTIC, CUBLD, CBC #### [facility] [address] [place] [address] [place] GFR/1.73 sq M.predicted MDRD (S/P/Bld) [Vol rate/Area] mL/min/{1.73_m2} Normal [facility] Comment on above: Performed By: #### C MP, LACTIC, CUBLD, CBC #### [address] Glucose [Mass/Vol] 102 mg/dL High 70-100 [facility] Comment on above: Result Comment: [place] Glucose Reference Range is dependent on time and content of last meal. Glucose of more than 200 mg/dL in a nonstressed, ambulatory subject supports the diagnosis of Diabetes Mellitus. ADA recommended reference range Performed By: #### C MP, LACTIC, CUBLD, CBC #### [facility] [address] [place] [address] [place] Potassium [Moles/Vol] 4.0 mmol/L Normal 3.5-5.1 [facility] Comment on above: Performed By: #### C MP, LACTIC, CUBLD, CBC #### [facility] [address] [place] [address] [place] Sodium [Moles/Vol] 140 mmol/L Normal 136-145 [facility] Comment on above: Performed By: #### C MP, LACTIC, CUBLD, CBC #### [address] Urea nitrogen [Mass/Vol] 10 mg/dL Normal 7-25 [facility] Comment on above: Performed By: #### C MP, LACTIC, CUBLD, CBC #### [address] Complete Blood Count Auto Di ffon 10-24-2023 Basophils (Bld) [#/Vol] 0.1 10*3/uL Normal 0.0-0.2 [facility] Comment on above: Result Comment: PERF ORMED BY: [place] [address] PATHOLOGIST TAILING [employer] DANDRE MEDINA M.D. Performed By: #### C MP, LACTIC, CUBLD, CBC #### [address] Basophils/100 WBC (Bld) 0.8 % Normal . T david [facility] Comment on above: Performed By: #### C MP, LACTIC, CUBLD, CBC #### [address] Eosinophils (Bld) [#/Vol] 0.2 10*3/uL Normal 0.0-0.45 [facility] Comment on above: Performed By: #### C MP, LACTIC, CUBLD, CBC #### [address] Eosinophils/100 WBC (Bld) 2.1 % Normal . [facility] Comment on above: Performed By: #### C MP, LACTIC, CUBLD, CBC #### [address] Erythrocyte distribution width (RBC) [Ratio] 14.2 % Normal 12.0-14.8 [facility] Comment on above: Performed By: #### C MP, LACTIC, CUBLD, CBC #### [address] Hematocrit (Bld) [Volume fraction] 33.9 % Low 38.8-50.0 [facility] Comment on above: Performed By: #### C MP, LACTIC, CUBLD, CBC #### [address] Hemoglobin (Bld) [Mass/Vol] 11.5 g/dL Low 13.0-17.0 [facility] Comment on above: Performed By: #### C MP, LACTIC, CUBLD, CBC #### [address] Lymphocytes (Bld) [#/Vol] 1.2 10*3/uL Normal 1.00-4.8 [facility] Comment on above: Performed By: #### C MP, LACTIC, CUBLD, CBC #### [address] Lymphocytes/100 WBC (Bld) 16.9 % Normal . [facility] Comment on above: Performed By: #### C MP, LACTIC, CUBLD, CBC #### [address] MCH (RBC) [Entitic mass] 28.3 pg Normal 27.5-35.2 [facility] Comment on above: Performed By: #### C MP, LACTIC, CUBLD, CBC #### [address] MCV (RBC) [Entitic vol] 83.7 fL Normal 83.5-101 T he [facility] Comment on above: Performed By: #### C MP, LACTIC, CUBLD, CBC #### [address] Mean Corpuscular HGB Conc 33.8 g/dL Normal 32.5-35.6 [facility] Comment on above: Performed By: #### C MP, LACTIC, CUBLD, CBC #### [address] Monocytes (Bld) [#/Vol] 0.6 10*3/uL Normal 0.0-0.8 [facility] Comment on above: Performed By: #### C MP, LACTIC, CUBLD, CBC #### [address] Monocytes/100 WBC (Bld) 8.1 % Normal . T he [facility] Comment on above: Performed By: #### C MP, LACTIC, CUBLD, CBC #### [address] Neutrophils (Bld) [#/Vol] 5.3 10*3/uL Normal 1.8-7.7 [facility] Comment on above: Performed By: #### C MP, LACTIC, CUBLD, CBC #### [address] Neutrophils/100 WBC (Bld) 72.1 % Normal . [facility] Comment on above: Performed By: #### C MP, LACTIC, CUBLD, CBC #### [address] NRBC% 0.1 /100{WBC} Normal 0-0.5 [facility] Comment on above: Performed By: #### C MP, LACTIC, CUBLD, CBC #### [address] Platelet mean volume (Bld) [Entitic vol] 7.6 fL Normal 6.6-10.1 [facility] Comment on above: Performed By: #### C MP, LACTIC, CUBLD, CBC #### [place] [address] [place] Platelets (Bld) [#/Vol] 280 10*3/uL Normal 150-450 [facility] Comment on above: Performed By: #### C MP, LACTIC, CUBLD, CBC #### [place] [address] [place] RBC (Bld) [#/Vol] 4.05 10*6/uL Normal 3.90-5.60 [facility] Comment on above: Performed By: #### C MP, LACTIC, CUBLD, CBC #### [place] [address] [place] WBC (Bld) [#/Vol] 7.4 10*3/uL Normal 4.1-10.5 [facility] Comment on above: Performed By: #### C MP, LACTIC, CUBLD, CBC #### [facility] [address] [place] [address] [place] Glucose Poct Glucometerson 0 10-24-2023 Glucose [Mass/Vol] 167 mg/dL Normal [facility] Comment on above: Result Comment: [place] om Glucose Reference Range is dependent on time and content of last meal. Glucose of more than 200 mg/dL in a nonstressed, ambulatory subject supports the diagnosis of Diabetes Mellitus. PERFORMED BY: [facility] [address] [place] [id number] PATHOLOGIST TAILING HAND DANDRE MEDINA M.D. Performed By: #### C MP, LACTIC, CUBLD, CBC #### [facility] [address] [place] [id number] [place] Glucose [Mass/Vol] 98 mg/dL Normal [facility] Comment on above: Result Comment: [place] om Glucose Reference Range is dependent on time and content of last meal. Glucose of more than 200 mg/dL in a nonstressed, ambulatory subject supports the diagnosis of Diabetes Mellitus. PERFORMED BY: [place] [address] PATHOLOGIST TAILING HAND DANDRE MEDINA M.D. Performed By: #### C MP, LACTIC, CUBLD, CBC #### [facility] [address] [place] [address] [place] Glucose [Mass/Vol] 85 mg/dL Normal [facility] Comment on above: Result Comment: [place] om Glucose Reference Range is dependent on time and content of last meal. Glucose of more than 200 mg/dL in a nonstressed, ambulatory subject supports the diagnosis of Diabetes Mellitus. PERFORMED BY: [facility] [address] [place] [address] PATHOLOGIST TAILING [employer] DANDRE MEDINA M.D. Performed By: #### C MP, LACTIC, CUBLD, CBC #### [facility] [address] [place] [address] [place] Glucose [Mass/Vol] 112 mg/dL Normal [facility] Comment on above: Result Comment: [place] om Glucose Reference Range is dependent on time and content of last meal. Glucose of more than 200 mg/dL in a nonstressed, ambulatory subject supports the diagnosis of Diabetes Mellitus. PERFORMED BY: [place] [address] PATHOLOGIST TAILING HAND DANDRE MEDINA M.D. Performed By: #### C MP, LACTIC, CUBLD, CBC #### [address] Basic Metabolic Panelon 03-0 Anion gap [Moles/Vol] 8.9 mmol/L Normal 6.0-15.0 [facility] Comment on above: Performed By: #### G LULS #### Point of Care testing , Calcium [Mass/Vol] 8.3 mg/dL Low 8.6-10.3 [facility] Comment on above: Performed By: #### G LULS #### Point of Care testing , Chloride [Moles/Vol] 106 mmol/L Normal 98-107 [facility] Comment on above: Performed By: #### G LULS #### Point of Care testing , CO2 [Moles/Vol] 30.2 mmol/L Normal 21.0-31.0 [facility] Comment on above: Performed By: #### G LULS #### Point of Care testing , Creatinine [Mass/Vol] 1.28 mg/dL Normal 0.70-1.30 [facility] Comment on above: Performed By: #### G LULS #### Point of Care testing , Creatinine Clr Calc Pharmacy 60.63 Normal [facility] Comment on above: Result Comment: PERF ORMED BY: [place] [address] PATHOLOGIST TAILING [employer] DANDRE MEDINA M.D. Performed By: #### G LULS #### Point of Care testing , GFR/1.73 sq M.predicted MDRD (S/P/Bld) [Vol rate/Area] mL/min/{1.73_m2} Normal [facility] Comment on above: Performed By: #### G LULS #### Point of Care testing , Glucose [Mass/Vol] 79 mg/dL Normal 70-100 [facility] Comment on above: Result Comment: [facility] Glucose Reference Range is dependent on time and content of last meal. Glucose of more than 200 mg/dL in a nonstressed, ambulatory subject supports the diagnosis of Diabetes Mellitus. ADA recommended reference range Performed By: #### G LULS #### Point of Care testing , Potassium [Moles/Vol] 4.1 mmol/L Normal 3.5-5.1 [facility] Comment on above: Performed By: #### G LULS #### Point of Care testing , Sodium [Moles/Vol] 141 mmol/L Normal 136-145 [facility] Comment on above: Performed By: #### G LULS #### Point of Care testing , Urea nitrogen [Mass/Vol] 11 mg/dL Normal 7-25 [facility] Comment on above: Performed By: #### G LULS #### Point of Care testing , Complete Blood Count Auto Di ffon 10-23-2023 Basophils (Bld) [#/Vol] 0.0 10*3/uL Normal 0.0-0.2 [facility] Comment on above: Result Comment: PERF ORMED BY: [place] [address] PATHOLOGIST TAILING HAND DANDRE MEDIAN M.D. Performed By: #### C USUP #### [place] [address] [place] Basophils/100 WBC (Bld) 0.6 % Normal . T david [facility] Comment on above: Performed By: #### C USUP #### [facility] [address] [place] [address] [place] Eosinophils (Bld) [#/Vol] 0.1 10*3/uL Normal 0.0-0.45 [facility] Comment on above: Performed By: #### C USUP #### [place] [address] [place] Eosinophils/100 WBC (Bld) 1.3 % Normal . [facility] Comment on above: Performed By: #### C USUP #### [address] Erythrocyte distribution width (RBC) [Ratio] 14.2 % Normal 12.0-14.8 [facility] Comment on above: Performed By: #### C USUP #### [address] Hematocrit (Bld) [Volume fraction] 32.8 % Low 38.8-50.0 [facility] Comment on above: Performed By: #### C USUP #### [address] Hemoglobin (Bld) [Mass/Vol] 11.1 g/dL Low 13.0-17.0 [facility] Comment on above: Performed By: #### C USUP #### [address] Lymphocytes (Bld) [#/Vol] 1.3 10*3/uL Normal 1.00-4.8 [facility] Comment on above: Performed By: #### C USUP #### [place] [address] [place] Lymphocytes/100 WBC (Bld) 17.0 % Normal . [facility] Comment on above: Performed By: #### C USUP #### [address] MCH (RBC) [Entitic mass] 28.5 pg Normal 27.5-35.2 [facility] Comment on above: Performed By: #### C USUP #### [address] MCV (RBC) [Entitic vol] 84.3 fL Normal 83.5-101 T [facility] Comment on above: Performed By: #### C USUP #### [address] Mean Corpuscular HGB Conc 33.8 g/dL Normal 32.5-35.6 [facility] Comment on above: Performed By: #### C USUP #### [address] Monocytes (Bld) [#/Vol] 0.6 10*3/uL Normal 0.0-0.8 [facility] Comment on above: Performed By: #### C USUP #### [address] Monocytes/100 WBC (Bld) 8.1 % Normal . T [facility] Comment on above: Performed By: #### C USUP #### [address] Neutrophils (Bld) [#/Vol] 5.7 10*3/uL Normal 1.8-7.7 [facility] Comment on above: Performed By: #### C USUP #### [address] Neutrophils/100 WBC (Bld) 73.0 % Normal . [facility] Comment on above: Performed By: #### C USUP #### [address] NRBC% 0.0 /100{WBC} Normal 0-0.5 [facility] Comment on above: Performed By: #### C USUP #### [address] Platelet mean volume (Bld) [Entitic vol] 7.4 fL Normal 6.6-10.1 [facility] Comment on above: Performed By: #### C USUP #### [address] Platelets (Bld) [#/Vol] 268 10*3/uL Normal 150-450 [facility] Comment on above: Performed By: #### C USUP #### [address] RBC (Bld) [#/Vol] 3.89 10*6/uL Low 3.90-5.60 [facility] Comment on above: Performed By: #### C USUP #### [address] WBC (Bld) [#/Vol] 7.8 10*3/uL Normal 4.1-10.5 [facility] Comment on above: Performed By: #### C USUP #### [place] [id number] [facility] Creatine Kinaseon 10-23-2023 CK [Catalytic activity/Vol] 43 U/L Normal 30- [facility] Comment on above: Result Comment: PERF ORMED BY: [place] [address] PATHOLOGIST TAILING HAND DANDRE MEDINA M.D. Performed By: #### C MP, LACTIC, CUBLD, CBC #### [address] Creatine kinase [Enzymatic a ctivity/volume] in Serum or PlasmaOrdered By: Asiya Morales on 10-23-2023 CK [Catalytic activity/Vol] 43 U/L 30- [facility] Glucose Poct Glucometerson 0 10-23-2023 Glucose [Mass/Vol] 276 mg/dL Normal [facility] Comment on above: Result Comment: [place] Glucose Reference Range is dependent on time and content of last meal. Glucose of more than 200 mg/dL in a nonstressed, ambulatory subject supports the diagnosis of Diabetes Mellitus. PERFORMED BY: [place] [address] PATHOLOGIST [employer]IL[employer] DANDRE MEDINA M.D. Performed By: #### C MP, LACTIC, CUBLD, CBC #### [place] [id number] [facility] Glucose [Mass/Vol] 194 mg/dL Normal [facility] Comment on above: Result Comment: [place] Glucose Reference Range is dependent on time and content of last meal. Glucose of more than 200 mg/dL in a nonstressed, ambulatory subject supports the diagnosis of Diabetes Mellitus. PERFORMED BY: [place] [address] PATHOLOGIST [employer]IL[employer] DANDRE MEDINA M.D. Performed By: #### G LULS #### Point of Care testing , Glucose [Mass/Vol] 152 mg/dL Normal [facility] Comment on above: Result Comment: [place] om Glucose Reference Range is dependent on time and content of last meal. Glucose of more than 200 mg/dL in a nonstressed, ambulatory subject supports the diagnosis of Diabetes Mellitus. PERFORMED BY: [address] [place] [address] PATHOLOGIST TAILING [employer] DANDRE MEDINA M.D. Performed By: #### C MP, LACTIC, CUBLD, CBC #### [address] Glucose [Mass/Vol] 104 mg/dL Normal [facility] Comment on above: Result Comment: [place] om Glucose Reference Range is dependent on time and content of last meal. Glucose of more than 200 mg/dL in a nonstressed, ambulatory subject supports the diagnosis of Diabetes Mellitus. PERFORMED BY: [address] [place] [address] PATHOLOGIST [employer]ILING [employer] DANDRE MEDINA M.D. Performed By: #### C MP, LACTIC, CUBLD, CBC #### [place] [address] [place] Glucose [Mass/Vol] 71 mg/dL Normal [facility] Comment on above: Result Comment: [place] om Glucose Reference Range is dependent on time and content of last meal. Glucose of more than 200 mg/dL in a nonstressed, ambulatory subject supports the diagnosis of Diabetes Mellitus. PERFORMED BY: [address] [place] [address] PATHOLOGIST [employer]IL[employer] DANDRE MEDINA M.D. Performed By: #### G LULS #### Point of Care testing , Glucose [Mass/Vol] 61 mg/dL Normal [facility] Comment on above: Result Comment: [place] om Glucose Reference Range is dependent on time and content of last meal. Glucose of more than 200 mg/dL in a nonstressed, ambulatory subject supports the diagnosis of Diabetes Mellitus. PERFORMED BY: [place] [id number] PATHOLOGIST [employer]IL[employer] DANDRE MEDINA M.D. Performed By: #### C MP, LACTIC, CUBLD, CBC #### [address] Glucose [Mass/Vol] 95 mg/dL Normal [facility] Comment on above: Result Comment: [facility] Glucose Reference Range is dependent on time and content of last meal. Glucose of more than 200 mg/dL in a nonstressed, ambulatory subject supports the diagnosis of Diabetes Mellitus. PERFORMED BY: [place] [address] PATHOLOGIST [employer]ILING [employer] DANDRE MEDINA M.D. Performed By: #### G LULS #### Point of Care testing , Basic Metabolic Panelon 0 Anion gap [Moles/Vol] 8.5 mmol/L Normal 6.0-15.0 [facility] Comment on above: Performed By: #### C MP, LACTIC, CUBLD, CBC #### [address] Calcium [Mass/Vol] 8.4 mg/dL Low 8.6-10.3 [facility] Comment on above: Performed By: #### C MP, LACTIC, CUBLD, CBC #### [place] [address] [place] Chloride [Moles/Vol] 107 mmol/L Normal 98-107 [facility] Comment on above: Performed By: #### C MP, LACTIC, CUBLD, CBC #### [place] [address] [place] CO2 [Moles/Vol] 28.3 mmol/L Normal 21.0-31.0 [facility] Comment on above: Performed By: #### C MP, LACTIC, CUBLD, CBC #### [place] [address] [place] Creatinine [Mass/Vol] 1.30 mg/dL Normal 0.70-1.30 [facility] Comment on above: Performed By: #### C MP, LACTIC, CUBLD, CBC #### [place] [address] [place] Creatinine Clr Calc Pharmacy 59.69 Normal [facility] Comment on above: Performed By: #### C MP, LACTIC, CUBLD, CBC #### [address] GFR/1.73 sq M.predicted MDRD (S/P/Bld) [Vol rate/Area] 59.839 mL/min/{1.73_m2} Normal [facility] Comment on above: Performed By: #### C MP, LACTIC, CUBLD, CBC #### [address] Glucose [Mass/Vol] 81 mg/dL Normal 70-100 [facility] Comment on above: Result Comment: [facility] Glucose Reference Range is dependent on time and content of last meal. Glucose of more than 200 mg/dL in a nonstressed, ambulatory subject supports the diagnosis of Diabetes Mellitus. ADA recommended reference range Performed By: #### C MP, LACTIC, CUBLD, CBC #### [address] Potassium [Moles/Vol] 3.8 mmol/L Normal 3.5-5.1 [facility] Comment on above: Performed By: #### C MP, LACTIC, CUBLD, CBC #### [address] Sodium [Moles/Vol] 140 mmol/L Normal 136-145 [facility] Comment on above: Performed By: #### C MP, LACTIC, CUBLD, CBC #### [place] [address] [place] Urea nitrogen [Mass/Vol] 12 mg/dL Normal 7-25 [facility] Comment on above: Performed By: #### C MP, LACTIC, CUBLD, CBC #### [address] Complete Blood Count Auto Di ffon 10-22-2023 Basophils (Bld) [#/Vol] 0.1 10*3/uL Normal 0.0-0.2 [facility] Comment on above: Result Comment: PERF ORMED BY: [place] [address] PATHOLOGIST [employer]IL[employer] DANDRE MEDINA M.D. Performed By: #### G LULS #### Point of Care testing , Basophils/100 WBC (Bld) 0.7 % Normal . [facility] Comment on above: Performed By: #### G LULS #### Point of Care testing , Eosinophils (Bld) [#/Vol] 0.1 10*3/uL Normal 0.0-0.45 [facility] Comment on above: Performed By: #### G LULS #### Point of Care testing , Eosinophils/100 WBC (Bld) 1.7 % Normal . [facility] Comment on above: Performed By: #### G LULS #### Point of Care testing , Erythrocyte distribution width (RBC) [Ratio] 14.5 % Normal 12.0-14.8 [facility] Comment on above: Performed By: #### G LULS #### Point of Care testing , Hematocrit (Bld) [Volume fraction] 31.9 % Low 38.8-50.0 [facility] Comment on above: Performed By: #### G LULS #### Point of Care testing , Hemoglobin (Bld) [Mass/Vol] 10.7 g/dL Low 13.0-17.0 [facility] Comment on above: Performed By: #### G LULS #### Point of Care testing , Lymphocytes (Bld) [#/Vol] 1.2 10*3/uL Normal 1.00-4.8 [facility] Comment on above: Performed By: #### G LULS #### Point of Care testing , Lymphocytes/100 WBC (Bld) 13.8 % Normal . [facility] Comment on above: Performed By: #### G LULS #### Point of Care testing , MCH (RBC) [Entitic mass] 28.0 pg Normal 27.5-35.2 [facility] Comment on above: Performed By: #### G LULS #### Point of Care testing , MCV (RBC) [Entitic vol] 83.7 fL Normal 83.5-101 T [facility] Comment on above: Performed By: #### G LULS #### Point of Care testing , Mean Corpuscular HGB Conc 33.5 g/dL Normal 32.5-35.6 [facility] Comment on above: Performed By: #### G LULS #### Point of Care testing , Monocytes (Bld) [#/Vol] 0.6 10*3/uL Normal 0.0-0.8 [facility] Comment on above: Performed By: #### G LULS #### Point of Care testing , Monocytes/100 WBC (Bld) 6.9 % Normal . Shanna hernandez [facility] Comment on above: Performed By: #### G LULS #### Point of Care testing , Neutrophils (Bld) [#/Vol] 6.5 10*3/uL Normal 1.8-7.7 [facility] Comment on above: Performed By: #### G LULS #### Point of Care testing , Neutrophils/100 WBC (Bld) 76.9 % Normal . [facility] Comment on above: Performed By: #### G LULS #### Point of Care testing , NRBC% 0.0 /100{WBC} Normal 0-0.5 [facility] Comment on above: Performed By: #### G LULS #### Point of Care testing , Platelet mean volume (Bld) [Entitic vol] 7.6 fL Normal 6.6-10.1 [facility] Comment on above: Performed By: #### G LULS #### Point of Care testing , Platelets (Bld) [#/Vol] 263 10*3/uL Normal 150-450 [facility] Comment on above: Performed By: #### G LULS #### Point of Care testing , RBC (Bld) [#/Vol] 3.82 10*6/uL Low 3.90-5.60 [facility] Comment on above: Performed By: #### G LULS #### Point of Care testing , WBC (Bld) [#/Vol] 8.4 10*3/uL Normal 4.1-10.5 [facility] Comment on above: Performed By: #### G LULS #### Point of Care testing , Glucose Poct Glucometerson 0 10-22-2023 Glucose [Mass/Vol] 210 mg/dL Normal [facility] Comment on above: Result Comment: [place] om Glucose Reference Range is dependent on time and content of last meal. Glucose of more than 200 mg/dL in a nonstressed, ambulatory subject supports the diagnosis of Diabetes Mellitus. PERFORMED BY: [place] [phone] PATHOLOGIST TAILING [employer] DANDRE EMDINA M.D. Performed By: #### G LULS #### Point of Care testing , Glucose [Mass/Vol] 108 mg/dL Normal [facility] Comment on above: Result Comment: [place] om Glucose Reference Range is dependent on time and content of last meal. Glucose of more than 200 mg/dL in a nonstressed, ambulatory subject supports the diagnosis of Diabetes Mellitus. PERFORMED BY: [place] [phone] PATHOLOGIST [employer]IL[employer] DANDRE MEDINA M.D. Performed By: #### C USUP #### [address] Commemt1 Glu2: Cleaned Meter Normal [facility] Comment on above: Result Comment: PERF ORMED BY: [place] [phone] PATHOLOGIST TAILING [employer] DANDRE MEDINA M.D. Performed By: #### G LULS #### Point of Care testing , Glucose [Mass/Vol] 74 mg/dL Normal [facility] Comment on above: Result Comment: [place] om Glucose Reference Range is dependent on time and content of last meal. Glucose of more than 200 mg/dL in a nonstressed, ambulatory subject supports the diagnosis of Diabetes Mellitus. Performed By: #### G LULS #### Point of Care testing , Commemt1 Normal [facility] Comment on above: Result Comment: Glu2 : WILL NOTIFY DR/RN PERFORMED BY: [place] [phone] PATHOLOGIST [employer]IL[employer] DANDRE MEDINA M.D. Performed By: #### G LULS #### Point of Care testing , Glucose [Mass/Vol] 56 mg/dL Off scale low [facility] Comment on above: Result Comment: [place] om Glucose Reference Range is dependent on time and content of last meal. Glucose of more than 200 mg/dL in a nonstressed, ambulatory subject supports the diagnosis of Diabetes Mellitus. Performed By: #### G LULS #### Point of Care testing , Glucose [Mass/Vol] 88 mg/dL Normal [facility] Comment on above: Result Comment: [place] om Glucose Reference Range is dependent on time and content of last meal. Glucose of more than 200 mg/dL in a nonstressed, ambulatory subject supports the diagnosis of Diabetes Mellitus. PERFORMED BY: [place] [address] PATHOLOGIST TAILING [employer] DANDRE MEDINA M.D. Performed By: #### G LULS #### Point of Care testing , Glucose [Mass/Vol] 91 mg/dL Normal [facility] Comment on above: Result Comment: [place] om Glucose Reference Range is dependent on time and content of last meal. Glucose of more than 200 mg/dL in a nonstressed, ambulatory subject supports the diagnosis of Diabetes Mellitus. PERFORMED BY: [place] [address] PATHOLOGIST TAILING [employer] DANDRE MEDINA M.D. Performed By: #### C MP, LACTIC, CUBLD, CBC #### [facility] [address] [place] [address] Magnesiumon 10-22-2023 Magnesium [Mass/Vol] 1.9 mg/dL Normal 1.9-2.7 [facility] Comment on above: Result Comment: PERF ORMED BY: [place] [address] PATHOLOGIST TAILING [employer] DANDRE MEDINA M.D. Performed By: #### C MP, LACTIC, CUBLD, CBC #### [facility] [address] [place] [address] Magnesium [Mass/volume] in S timur or PlasmaOrdered By: Trevon Bailey on 10-22-2023 Magnesium [Mass/Vol] 1.9 mg/dL 1.9-2.7 [facility] No Panel InformationOrdered By: Trevon Bailey on 10-22-2023 Bedside Glucose Comment Glu2: cleaned meter [facility] Alanine aminotransferase [En zymatic activity/volume] in Serum or PlasmaOrdered By: Trevon Bailey on 10-21-2023 ALT [Catalytic activity/Vol] 4 U/L 7-52 [facility] Albumin [Mass/volume] in Ser um or Plasma by Bromocresol green (BCG) dye binding methoOrdered By: Trevon Bailey on 10-21-2023 Albumin BCG dye [Mass/Vol] 3.0 g/dL 3.5-5.7 [facility] Alkaline phosphatase [Enzyma tic activity/volume] in Serum or PlasmaOrdered By: Trevon Bailey on 10-21-2023 ALP [Catalytic activity/Vol] 51 U/L 34-104 [facility] Aspartate aminotransferase [ Enzymatic activity/volume] in Serum or PlasmaOrdered By: Trevon Cuencar on 10-21-2023 AST [Catalytic activity/Vol] 8 U/L 13-39 [facility] Bilirubin.total [Mass/volume ] in Serum or PlasmaOrdered By: Trevon Cuencar on 10-21-2023 Bilirubin [Mass/Vol] 0.4 mg/dL 0.3-1.0 [facility] C reactive protein [Mass/vol ume] in Serum or PlasmaOrdered By: Trevon Bailey on 10-21-2023 CRP [Mass/Vol] 9.1 mg/dL 0.0-0.5 [facility] C-Reactive Proteinon 024 C-Reactive Protein 9.1 mg/dL High 0.0-0.5 [facility] Comment on above: Result Comment: PERF ORMED BY: [facility] [address] [place] [address] PATHOLOGIST TAILING [employer] DANDRE MEDINA M.D. Performed By: #### C USUP #### [facility] [address] [place] [address] [facility] CT foot RT w conon CT foot RT w con [facility] Main [place] [address] [place] [address] CT Scan Report Signed Patient: Roshan Hoang JR MR#: [id number] 225 : 1955 Acct:[id number] Age/Sex: 68 / M ADM Date: 10/20/23 Loc: Room: [address] [place] [address] Type: ADM IN Attending Dr: Trevon Bailey MD Copies to: Trevon Bailey MD Ordering Provider: Trevon Bailey MD Date of Service: 10/20/23 CT/CT foot RT w con: gengrenous R foot 2nd toe, rule out osteomyelitis CT RIGHT foot with contrast TECHNIQUE: 90 cc of [id number] CT exam was performed using one or more the following dose reduction techniques: Automated exposure control, adjustment of the MA and/or Kv according to patient size, or use of the iterative reconstruction technique. COMPARISON: None HISTORY: Gangrene involving the RIGHT 2nd toe. Swelling and pain involving the RIGHT leg. At there is a redemonstration of osteolysis involving the tuft of the 2nd toe. Adjacent soft tissue air present. No obvious adjacent abscess identified. No additional regions of bony destruction. CT/CT foot RT w con IMPRESSION: Findings consistent with osteomyelitis involving the tuft of the 2nd toe. Adjacent wound defect. No soft tissue abscess. Impression dictated by: Vel Palencia M.D.10/21/2023 10:51 AM Dictation Location: [place] [address] Transcribed By: [facility] 10/21/23 1051 Dictated By: Vel Palencia DO 10/21/23 1044 Signed By: 10/21/23 1051 Normal [facility] Complete Blood Count Auto Di ffon 10-21-2023 Basophils (Bld) [#/Vol] 0.0 10*3/uL Normal 0.0-0.2 [facility] Comment on above: Performed By: #### C MP, LACTIC, CUBLD, CBC #### [address] Basophils/100 WBC (Bld) 0.4 % Normal . T [facility] Comment on above: Performed By: #### C MP, LACTIC, CUBLD, CBC #### [address] Eosinophils (Bld) [#/Vol] 0.1 10*3/uL Normal 0.0-0.45 [facility] Comment on above: Performed By: #### C MP, LACTIC, CUBLD, CBC #### [address] Eosinophils/100 WBC (Bld) 1.5 % Normal . [facility] Comment on above: Performed By: #### C MP, LACTIC, CUBLD, CBC #### [address] Erythrocyte distribution width (RBC) [Ratio] 14.5 % Normal 12.0-14.8 [facility] Comment on above: Performed By: #### C MP, LACTIC, CUBLD, CBC #### [address] Hematocrit (Bld) [Volume fraction] 30.5 % Low 38.8-50.0 [facility] Comment on above: Performed By: #### C MP, LACTIC, CUBLD, CBC #### [address] Hemoglobin (Bld) [Mass/Vol] 10.4 g/dL Low 13.0-17.0 [facility] Comment on above: Performed By: #### C MP, LACTIC, CUBLD, CBC #### [place] [address] [place] Lymphocytes (Bld) [#/Vol] 1.1 10*3/uL Normal 1.00-4.8 [facility] Comment on above: Performed By: #### C MP, LACTIC, CUBLD, CBC #### [place] [address] [place] Lymphocytes/100 WBC (Bld) 13.7 % Normal . [facility] Comment on above: Performed By: #### C MP, LACTIC, CUBLD, CBC #### [address] MCH (RBC) [Entitic mass] 28.7 pg Normal 27.5-35.2 [facility] Comment on above: Performed By: #### C MP, LACTIC, CUBLD, CBC #### [address] MCV (RBC) [Entitic vol] 83.6 fL Normal 83.5-101 T [facility] Comment on above: Performed By: #### C MP, LACTIC, CUBLD, CBC #### [address] Mean Corpuscular HGB Conc 34.3 g/dL Normal 32.5-35.6 [facility] Comment on above: Performed By: #### C MP, LACTIC, CUBLD, CBC #### [address] Monocytes (Bld) [#/Vol] 0.6 10*3/uL Normal 0.0-0.8 [facility] Comment on above: Performed By: #### C MP, LACTIC, CUBLD, CBC #### [address] Monocytes/100 WBC (Bld) 6.8 % Normal . [facility] Comment on above: Performed By: #### C MP, LACTIC, CUBLD, CBC #### [address] Neutrophils (Bld) [#/Vol] 6.3 10*3/uL Normal 1.8-7.7 [facility] Comment on above: Performed By: #### C MP, LACTIC, CUBLD, CBC #### [address] Neutrophils/100 WBC (Bld) 77.6 % Normal . [facility] Comment on above: Performed By: #### C MP, LACTIC, CUBLD, CBC #### [place] [address] [place] NRBC% 0.0 /100{WBC} Normal 0-0.5 [facility] Comment on above: Performed By: #### C MP, LACTIC, CUBLD, CBC #### [address] Platelet mean volume (Bld) [Entitic vol] 8.0 fL Normal 6.6-10.1 [facility] Comment on above: Performed By: #### C MP, LACTIC, CUBLD, CBC #### [address] Platelets (Bld) [#/Vol] 219 10*3/uL Normal 150-450 [facility] [facility] Comment on above: Performed By: #### C MP, LACTIC, CUBLD, CBC #### [address] RBC (Bld) [#/Vol] 3.64 10*6/uL Low 3.90-5.60 [facility] Comment on above: Performed By: #### C MP, LACTIC, CUBLD, CBC #### [address] WBC (Bld) [#/Vol] 8.2 10*3/uL Normal 4.1-10.5 [facility] Comment on above: Performed By: #### C MP, LACTIC, CUBLD, CBC #### [address] Comprehensive Metabolic Pane true 10-21-2023 Albumin [Mass/Vol] 3.0 g/dL Low 3.5-5.7 [facility] Comment on above: Performed By: #### C USUP #### [address] Albumin/Globulin [Mass ratio] 1.1 {ratio} Normal [facility] Comment on above: Performed By: #### C USUP #### [address] ALP [Catalytic activity/Vol] 51 U/L Normal 34-104 [facility] Comment on above: Performed By: #### C USUP #### [address] ALT [Catalytic activity/Vol] 4 U/L Low 7-52 [facility] Comment on above: Performed By: #### C USUP #### [address] Anion gap [Moles/Vol] 10.0 mmol/L Normal 6.0-15.0 [facility] Comment on above: Performed By: #### C USUP #### [address] AST [Catalytic activity/Vol] 8 U/L Low 13-39 [facility] Comment on above: Performed By: #### C USUP #### [address] Bilirubin [Mass/Vol] 0.4 mg/dL Normal 0.3-1.0 [facility] Comment on above: Performed By: #### C USUP #### [address] Calcium [Mass/Vol] 8.2 mg/dL Low 8.6-10.3 [facility] Comment on above: Performed By: #### C USUP #### [address] Chloride [Moles/Vol] 103 mmol/L Normal 98-107 [facility] Comment on above: Performed By: #### C USUP #### [address] CO2 [Moles/Vol] 26.6 mmol/L Normal 21.0-31.0 [facility] Comment on above: Performed By: #### C USUP #### [address] Creatinine [Mass/Vol] 1.43 mg/dL High 0.70-1.30 [facility] Comment on above: Performed By: #### C USUP #### [place] [address] [place] Creatinine Clr Calc Pharmacy 54.27 Normal [facility] Comment on above: Performed By: #### C USUP #### [place] [address] [place] GFR/1.73 sq M.predicted MDRD (S/P/Bld) [Vol rate/Area] 53.371 mL/min/{1.73_m2} Normal [facility] Comment on above: Performed By: #### C USUP #### [address] Globulin (S) [Mass/Vol] 2.7 g/dL Normal T [facility] Comment on above: Performed By: #### C USUP #### [address] Glucose [Mass/Vol] 145 mg/dL Significant change up 70-100 [facility] Comment on above: Result Comment: [facility] Glucose Reference Range is dependent on time and content of last meal. Glucose of more than 200 mg/dL in a nonstressed, ambulatory subject supports the diagnosis of Diabetes Mellitus. ADA recommended reference range Performed By: #### C USUP #### [address] Potassium [Moles/Vol] 3.6 mmol/L Normal 3.5-5.1 [facility] Comment on above: Performed By: #### C USUP #### [address] Protein [Mass/Vol] 5.7 g/dL Low 6.4-8.9 [facility] Comment on above: Performed By: #### C USUP #### [place] [address] [place] Sodium [Moles/Vol] 136 mmol/L Significant change down 136-145 [facility] Comment on above: Performed By: #### C USUP #### [address] Urea nitrogen [Mass/Vol] 19 mg/dL Normal 7-25 [facility] Comment on above: Performed By: #### C USUP #### [facility] [address] Creatinine [Mass/volume] in UrineOrdered By: Trevon Bailey on 10-21-2023 Creatinine (U) [Mass/Vol] 112.0 mg/dL 14.0-26.0 [facility] Creatinine, Urine (Random)on 10-21-2023 Creatinine, Urine (Random) 112.0 mg/dL High 14.0-26.0 [facility] Comment on above: Performed By: #### C MP, LACTIC, CUBLD, CBC #### [address] Erythrocyte Sedimentation Ra cindi 10-21-2023 ESR (Bld) [Velocity] 67 mm/h High 0-19 [facility] Comment on above: Result Comment: PERF ORMED BY: [place] [address] PATHOLOGIST TAILING HAND DANDRE MEDINA M.D. Performed By: #### C USUP #### [address] Erythrocyte sedimentation ra te by Photometric methodOrdered By: Trevon Bailey on 10-21-2023 ESR Photometric method (Bld) [Velocity] 67 mm/hr 0-19 [facility] Globulin Calc (S) [Mass/Vol] Ordered By: Trevon Bailey on 10-21-2023 Globulin (S) [Mass/Vol] 2.7 g/dL F [facility] Glucose Poct Glucometerson 0 10-21-2023 Glucose [Mass/Vol] 197 mg/dL Normal [facility] Comment on above: Result Comment: [place] Glucose Reference Range is dependent on time and content of last meal. Glucose of more than 200 mg/dL in a nonstressed, ambulatory subject supports the diagnosis of Diabetes Mellitus. PERFORMED BY: [place] [address] PATHOLOGIST TAILING HAND DANDRE MEDINA M.D. Performed By: #### G LULS #### Point of Care testing , Glucose [Mass/Vol] 121 mg/dL Normal [facility] Comment on above: Result Comment: [place] om Glucose Reference Range is dependent on time and content of last meal. Glucose of more than 200 mg/dL in a nonstressed, ambulatory subject supports the diagnosis of Diabetes Mellitus. PERFORMED BY: [place] [address] PATHOLOGIST TAILING HAND DANDRE MEDINA M.D. Performed By: #### C MP LACTIC, CUBLD, CBC #### [address] Glucose [Mass/Vol] 152 mg/dL Normal [facility] Comment on above: Result Comment: [place] om Glucose Reference Range is dependent on time and content of last meal. Glucose of more than 200 mg/dL in a nonstressed, ambulatory subject supports the diagnosis of Diabetes Mellitus. PERFORMED BY: [place] [address] PATHOLOGIST TAILING HAND DANDRE MEDINA M.D. Performed By: #### C USUP #### [address] Glucose [Mass/Vol] 165 mg/dL Normal [facility] Comment on above: Result Comment: [place] om Glucose Reference Range is dependent on time and content of last meal. Glucose of more than 200 mg/dL in a nonstressed, ambulatory subject supports the diagnosis of Diabetes Mellitus. PERFORMED BY: [place] [address] PATHOLOGIST TAILING HAND DANDRE MEDINA M.D. Performed By: #### C MP LACTIC, CUBLD, CBC #### [place] [id number] [facility] True 10-21-2023 L Specimen: [id number] Received: 10/22/23 Status: BRENDA [facility] Num: [id number] Spec Type: Surgical Subm Dr: Brock Rivera DPM Tissues: A DIGIT AMPUTATION (RT 2ND TOE) Procedures: HE/2, Gross/Micro L4, Decalcification Age/ Patient Sex Location Account Attending Physician Roshan Hoang JR 68/M 3T [id number] Emmanuel Zazueta MD SPEC NUM: [id number] RECD: 10/22/23 STATUS: BRENDA REQ NUM: [id number] CONY: 10/21/[address]: Brock Rivera DPM ENTERED: 10/22/[address]: SPEC TYPE: Surgical DEPT: S ORDERED: HE/2, Gross/Micro L4, Decalcification ORDERED: HE/2, Gross/Micro L4, Decalcification Pathological Diagnosis Right second toe, amputation: -Apparently severe acute necrotizing ulceration and gangrenous degeneration of the wet type, focally also extending to the cortical surface of the toe bone, and with mildly associated acute osteomyelitis also identified -The proximal soft tissue margin beneath the viable skin is still positive for focal acute inflammation / exudate -The proximal bony margin is viable without acute inflammation Clinical Information Right second toe bone infection Gross Description Received in formalin labeled with the patient's name, date of and right second toe is a 6.5 x 2.1 x 2.1 cm distal digit consistent with toe. No toenail is present, however there is a 1.7 x 1.5 cm pagan-black ulcerated area where the toenail has been removed. Additionally, on the distal tip of the specimen is a 1.3 x 1.0 cm maria-pagan, crusted lesion. The remaining skin of the distal digit is purple-pagan with skin sloughing. The skin of the proximal digit is maria-white with sparse hair. The resection margin is inked the underlying bone is maria-red, trabecular.. Knuckler are submitted following decalcification in 2 cassettes as follows: A1 - Distal toe lesions A2 - En face soft tissue and bony margins -------- Specimen: [id number] Received: 10/22/23 Status: BRENDA Alex Num: [id number] Spec Type: Surgical Subm Dr: Brock Rivera DPM Tissues: A DIGIT AMPUTATION (RT 2ND TOE) Procedures: YOLANDA, Gross/Micro L4, Decalcification -------- Patient: Roshan Hoang [id number] (Continued) -------- Specimen: [id number] Received: 10/22/23 (Continued) Signed (signature on file) Maranda Solomon MD 10/25/231811 -------- Specimen: [id number] Received: 10/22/23 Status: BRENDA Johnson Num: [id number] Spec Type: Surgical Subm Dr: Brock Rivera DPM Tissues: A DIGIT AMPUTATION (RT 2ND TOE) Procedures: YOLANDA, Gross/Micro L4, Decalcification -------- Patient: Roshan Hoang JR [id number] (Continued) -------- Specimen: [id number] Received: 10/22/23 (Continued) CPT Codes 59905, 63489 -------- -------- Specimen: [id number] Received: 10/22/23 Status: BRENDA Johnson Num: [id number] Spec Type: Surgical Subm Dr: Brock Rivera DPM Tissues: A DIGIT AMPUTATION (RT 2ND TOE) Procedures: HE/2, Gross/Micro L4, Decalcification -------- Patient: Roshan Hoang JR [id number] (Continued) -------- Signed (signature on file) Chin-Hair Solomon MD 10/25/231811 Normal [facility] Protein [Mass/volume] in Ser um or PlasmaOrdered By: Trevon Thorneomamario alberto on 10-21-2023 Protein [Mass/Vol] 5.7 g/dL 6.4-8.9 [facility] Serum or plasma albumin/glob ulin mass ratioOrdered By: Trevon DuraSweeperjustina on 10-21-2023 Albumin/Globulin [Mass ratio] 1.1 {ratio} [facility] Sodium [Moles/volume] in Uri neOrdered By: Trevon DuraSweeperjustina on 10-21-2023 Sodium (U) [Moles/Vol] 53 mmol/L [facility] Comment on above: No reference range e stablished Sodium, Urine (Random)on Sodium (U) [Moles/Vol] 53 mmol/L Normal Th [facility] Comment on above: Result Comment: No r eference range established PERFORMED BY: [place] [address] PATHOLOGIST TAILING HAND DANDRE MEDINA M.D. Performed By: #### C GERARDO ROSENTHAL CUBLD CBC #### [facility] [address] XR foot RT 2Von 10-21-2023 XR foot RT 2V [facility] [address] [place] [address] [place] [address] XRay Report Signed Patient: Roshan Hoang JR MR#: [id number] 225 : 1955 Acct:[id number] Age/Sex: 68 / M ADM Date: 10/20/23 Loc: Room: [address] [place] [address] Type: ADM IN Attending Dr: Trevon Bailey MD Copies to: DELFINO Blackburn MD Ordering Provider: Brock Rivera DPM Date of Service: 10/21/23 XR/XR foot RT 2V: toe amputation RIGHT FOOT - 2 views COMPARISON: 10/19/2023 CLINICAL DATA: Follow-up after second toe amputation AP and lateral views were obtained. There is old amputation of the third toe at the head of the proximal phalanx. There is interval amputation of the second toe at the metatarsal phalangeal joint. Minor deformity at the tuft of the first toe is again seen. There are no developing fractures or dislocation. There is atherosclerotic disease. XR/XR foot RT 2V IMPRESSION: INTERVAL AMPUTATION OF THE SECOND TOE. Impression dictated by: Ariane Nguyen M.D.10/21/2023 7:59 PM Dictation Location: [place] [address] Transcribed By: [facility] 10/21/231958 Dictated By: Ariane Nguyen MD 10/21/231956 Signed By: 10/21/231958 Normal [facility] A1C with Estimated Average [facility] 10-20-2023 Glucose [Mass/Vol] 283 mg/dL Normal [facility] Comment on above: Result Comment: PERF ORMED BY: [place] [address] PATHOLOGIST TAILING [employer] DANDRE MEDINA M.D. Performed By: #### C MP, GERARDO, SHANONLD, CBC #### [address] HbA1c (Bld) [Mass fraction] 11.5 % High 4.3-5.6 [facility] Comment on above: Result Comment: Incr eased risk for diabetes: 5.7 - 6.4 diabetes: >6.4 glycemic control for adults with diabetes: <7.0 Performed By: #### C MP, LACTIC, CUBLD, CBC #### [address] Bacteria identified Aer cx N om (Unsp spec)Ordered By: Trevon Bailey on 10-20-2023 Superficial Wound Culture Diptheroids [facility] Basic Metabolic Panelon Anion gap [Moles/Vol] 11.0 mmol/L Normal 6.0-15.0 Th e [facility] Comment on above: Performed By: #### B MP #### [address] Calcium [Mass/Vol] 8.0 mg/dL Low 8.6-10.3 [facility] Comment on above: Performed By: #### B MP #### [address] Chloride [Moles/Vol] 98 mmol/L Normal 98-107 [facility] Comment on above: Performed By: #### B MP #### [address] CO2 [Moles/Vol] 24.5 mmol/L Normal 21.0-31.0 [facility] Comment on above: Performed By: #### B MP #### [address] Creatinine [Mass/Vol] 1.28 mg/dL Normal 0.70-1.30 [facility] Comment on above: Performed By: #### B MP #### [place] [address] [place] Creatinine Clr Calc Pharmacy 60.63 Normal [facility] Comment on above: Performed By: #### B MP #### [place] [address] [place] GFR/1.73 sq M.predicted MDRD (S/P/Bld) [Vol rate/Area] mL/min/{1.73_m2} Normal [facility] Comment on above: Performed By: #### B MP #### [address] [place] [address] [place] Glucose [Mass/Vol] 400 mg/dL High 70-100 [facility] Comment on above: Result Comment: [place] Glucose Reference Range is dependent on time and content of last meal. Glucose of more than 200 mg/dL in a nonstressed, ambulatory subject supports the diagnosis of Diabetes Mellitus. ADA recommended reference range Performed By: #### B MP #### [address] Potassium [Moles/Vol] 4.5 mmol/L Normal 3.5-5.1 [facility] Comment on above: Performed By: #### B MP #### [address] Sodium [Moles/Vol] 129 mmol/L Low 136-145 [facility] Comment on above: Performed By: #### B MP #### [address] Urea nitrogen [Mass/Vol] 17 mg/dL Normal 7-25 [facility] Comment on above: Performed By: #### B MP #### [address] Blood Cultureon 10-20-2023 Bacteria identified Cx Nom (Bld) NO GROWTH 5 DAYS PERFORMED BY: [place] [address] PATHOLOGIST TAILING [employer] DANDRE MEDINA M.D. Normal [facility] Comment on above: Performed By: #### C MP, LACTIC, CUBLD, CBC #### [address] Performed By: #### C USUP #### [address] Cholesterol [Mass/volume] in Serum or PlasmaOrdered By: Terence Roblero on 10-20-2023 Cholesterol [Mass/Vol] 136 mg/dL 140-200 [facility] Comment on above: Chol less than 200 m g/dl low riskChol 201-239 mg/dl borderline riskChol 240 mg/dl and greater high risk Cholesterol in LDL Calc [Mas s/Vol]Ordered By: Terence Roblero on 10-20-2023 Cholesterol in LDL [Mass/Vol] 79 mg/dL 0-100 [facility] Comment on above: LDL ATP III CLASSIFI CATIONLDL less than 100 mg/dL OptimalLDL 100-129 mg/dL Near or above optimalLDL 130-159 mg/dL Borderline highLDL 160-189 mg/dL HighLDL greater than 189 mg/dL Very high Cholesterol in VLDL Calc [Ma ss/Vol]Ordered By: Terence Roblero on 10-20-2023 Cholesterol in VLDL [Mass/Vol] 29 mg/dL [facility] Complete Blood Count Auto Di ffon 10-20-2023 Basophils (Bld) [#/Vol] 0.1 10*3/uL Normal 0.0-0.2 [facility] Comment on above: Result Comment: PERF ORMED BY: [place] [address] PATHOLOGIST TAILING [employer] DANDRE MEDINA M.D. Performed By: #### C USUP #### [address] Basophils/100 WBC (Bld) 0.6 % Normal . T david [facility] Comment on above: Performed By: #### C USUP #### [place] [address] [place] Eosinophils (Bld) [#/Vol] 0.1 10*3/uL Normal 0.0-0.45 [facility] Comment on above: Performed By: #### C USUP #### [place] [address] [place] Eosinophils/100 WBC (Bld) 1.3 % Normal . [facility] Comment on above: Performed By: #### C USUP #### [address] Erythrocyte distribution width (RBC) [Ratio] 14.1 % Normal 12.0-14.8 [facility] Comment on above: Performed By: #### C USUP #### [place] [address] [place] Hematocrit (Bld) [Volume fraction] 32.5 % Low 38.8-50.0 [facility] Comment on above: Performed By: #### C USUP #### [address] Hemoglobin (Bld) [Mass/Vol] 11.0 g/dL Low 13.0-17.0 [facility] Comment on above: Performed By: #### C USUP #### [address] Lymphocytes (Bld) [#/Vol] 1.1 10*3/uL Normal 1.00-4.8 [facility] Comment on above: Performed By: #### C USUP #### [address] Lymphocytes/100 WBC (Bld) 13.1 % Normal . [facility] Comment on above: Performed By: #### C USUP #### [address] MCH (RBC) [Entitic mass] 28.3 pg Normal 27.5-35.2 [facility] Comment on above: Performed By: #### C USUP #### [address] MCV (RBC) [Entitic vol] 83.9 fL Normal 83.5-101 T [facility] Comment on above: Performed By: #### C USUP #### [address] Mean Corpuscular HGB Conc 33.7 g/dL Normal 32.5-35.6 [facility] Comment on above: Performed By: #### C USUP #### [address] Monocytes (Bld) [#/Vol] 0.7 10*3/uL Normal 0.0-0.8 [facility] Comment on above: Performed By: #### C USUP #### [address] Monocytes/100 WBC (Bld) 7.9 % Normal . T [facility] Comment on above: Performed By: #### C USUP #### [facility] [address] [place] [address] [place] Neutrophils (Bld) [#/Vol] 6.7 10*3/uL Normal 1.8-7.7 [facility] Comment on above: Performed By: #### C USUP #### [facility] [address] [place] [address] [place] Neutrophils/100 WBC (Bld) 77.1 % Normal . [facility] Comment on above: Performed By: #### C USUP #### [facility] [address] [place] [address] [place] NRBC% 0.1 /100{WBC} Normal 0-0.5 [facility] Comment on above: Performed By: #### C USUP #### [address] Platelet mean volume (Bld) [Entitic vol] 8.2 fL Normal 6.6-10.1 [facility] Comment on above: Performed By: #### C USUP #### [facility] [address] [place] [address] [place] Platelets (Bld) [#/Vol] 209 10*3/uL Normal 150-450 [facility] Comment on above: Performed By: #### C USUP #### [place] [address] [place] RBC (Bld) [#/Vol] 3.88 10*6/uL Low 3.90-5.60 [facility] Comment on above: Performed By: #### C USUP #### [facility] [address] [place] [address] [place] WBC (Bld) [#/Vol] 8.7 10*3/uL Normal 4.1-10.5 [facility] Comment on above: Performed By: #### C USUP #### [facility] [address] [place] [address] [place] Basophils (Bld) [#/Vol] 0.1 10*3/uL Normal 0.0-0.2 [facility] Comment on above: Result Comment: PERF ORMED BY: [place] [address] PATHOLOGIST TAILING [employer] DANDRE MEDINA M.D. Performed By: #### C MP, LACTIC, CUBLD, CBC #### [address] Basophils/100 WBC (Bld) 0.4 % Normal . T he [facility] Comment on above: Performed By: #### C MP, LACTIC, CUBLD, CBC #### [address] Eosinophils (Bld) [#/Vol] 0.1 10*3/uL Normal 0.0-0.45 [facility] Comment on above: Performed By: #### C MP, LACTIC, CUBLD, CBC #### [address] Eosinophils/100 WBC (Bld) 0.6 % Normal . [facility] Comment on above: Performed By: #### C MP, LACTIC, CUBLD, CBC #### [address] Erythrocyte distribution width (RBC) [Ratio] 14.5 % Normal 12.0-14.8 [facility] Comment on above: Performed By: #### C MP, LACTIC, CUBLD, CBC #### [address] Hematocrit (Bld) [Volume fraction] 37.0 % Low 38.8-50.0 [facility] Comment on above: Performed By: #### C MP, LACTIC, CUBLD, CBC #### [address] Hemoglobin (Bld) [Mass/Vol] 12.4 g/dL Low 13.0-17.0 [facility] Comment on above: Performed By: #### C MP, LACTIC, CUBLD, CBC #### [place] [address] [place] Lymphocytes (Bld) [#/Vol] 1.0 10*3/uL Normal 1.00-4.8 [facility] Comment on above: Performed By: #### C MP, LACTIC, CUBLD, CBC #### [address] Lymphocytes/100 WBC (Bld) 6.7 % Normal . [facility] Comment on above: Performed By: #### C MP, LACTIC, CUBLD, CBC #### [address] MCH (RBC) [Entitic mass] 28.2 pg Normal 27.5-35.2 [facility] Comment on above: Performed By: #### C MP, LACTIC, CUBLD, CBC #### [address] MCV (RBC) [Entitic vol] 84.3 fL Normal 83.5-101 T [facility] Comment on above: Performed By: #### C MP, LACTIC, CUBLD, CBC #### [address] Mean Corpuscular HGB Conc 33.4 g/dL Normal 32.5-35.6 [facility] Comment on above: Performed By: #### C MP, LACTIC, CUBLD, CBC #### [address] Monocytes (Bld) [#/Vol] 0.9 10*3/uL High 0.0-0.8 [facility] Comment on above: Performed By: #### C MP, LACTIC, CUBLD, CBC #### [address] Monocytes/100 WBC (Bld) 17.90 % Normal 0.00-20.00 T [facility] Comment on above: Performed By: #### C MP, LACTIC, CUBLD, CBC #### [address] Monocytes/100 WBC (Bld) 6.0 % Normal . [facility] Comment on above: Performed By: #### C MP, LACTIC, CUBLD, CBC #### [address] Neutrophils (Bld) [#/Vol] 12.5 10*3/uL High 1.8-7.7 [facility] Comment on above: Performed By: #### C MP, LACTIC, CUBLD, CBC #### [address] Neutrophils/100 WBC (Bld) 86.3 % Normal . [facility] Comment on above: Performed By: #### C MP, LACTIC, CUBLD, CBC #### [address] NRBC% 0.0 /100{WBC} Normal 0-0.5 [facility] Comment on above: Performed By: #### C MP, LACTIC, CUBLD, CBC #### [address] Platelet mean volume (Bld) [Entitic vol] 8.1 fL Normal 6.6-10.1 [facility] Comment on above: Performed By: #### C MP, LACTIC, CUBLD, CBC #### [address] Platelets (Bld) [#/Vol] 233 10*3/uL Normal 150-450 [facility] Comment on above: Performed By: #### C MP, LACTIC, CUBLD, CBC #### [address] RBC (Bld) [#/Vol] 4.39 10*6/uL Normal 3.90-5.60 [facility] Comment on above: Performed By: #### C MP, LACTIC, CUBLD, CBC #### [address] WBC (Bld) [#/Vol] 14.5 10*3/uL High 4.1-10.5 [facility] Comment on above: Performed By: #### C MP, LACTIC, CUBLD, CBC #### [address] Comprehensive Metabolic Pane true 10-20-2023 Albumin [Mass/Vol] 3.8 g/dL Normal 3.5-5.7 [facility] Comment on above: Performed By: #### C MP, LACTIC, CUBLD, CBC #### [facility] [address] Albumin/Globulin [Mass ratio] 1.2 {ratio} Normal [facility] Comment on above: Performed By: #### C MP, LACTIC, CUBLD, CBC #### [facility] [address] ALP [Catalytic activity/Vol] 81 U/L Normal 34-104 [facility] Comment on above: Performed By: #### C MP, LACTIC, CUBLD, CBC #### [facility] [address] ALT [Catalytic activity/Vol] 6 U/L Low 7-52 [facility] Comment on above: Performed By: #### C MP, LACTIC, CUBLD, CBC #### [address] Anion gap [Moles/Vol] 15.7 mmol/L High 6.0-15.0 Th e [facility] Comment on above: Performed By: #### C MP, LACTIC, CUBLD, CBC #### [place] [address] [place] AST [Catalytic activity/Vol] 9 U/L Low 13-39 [facility] Comment on above: Performed By: #### C MP, LACTIC, CUBLD, CBC #### [place] [address] [place] Bilirubin [Mass/Vol] 0.6 mg/dL Normal 0.3-1.0 [facility] Comment on above: Performed By: #### C MP, LACTIC, CUBLD, CBC #### [facility] [address] [place] [address] [place] Calcium [Mass/Vol] 8.6 mg/dL Normal 8.6-10.3 [facility] Comment on above: Performed By: #### C MP, LACTIC, CUBLD, CBC #### [address] Chloride [Moles/Vol] 96 mmol/L Low 98-107 [facility] Comment on above: Performed By: #### C GERARDO ROSENTHAL CUBLD, CBC #### [address] CO2 [Moles/Vol] 21.8 mmol/L Normal 21.0-31.0 [facility] Comment on above: Performed By: #### C GERARDO ROSENTHAL CUBLD, CBC #### [address] Creatinine [Mass/Vol] 1.26 mg/dL Normal 0.70-1.30 [facility] Comment on above: Performed By: #### C GERARDO ROSENTHAL CUBLD, CBC #### [address] Creatinine Clr Calc Pharmacy 61.59 Normal [facility] Comment on above: Result Comment: PERF ORMED BY: [place] [address] PATHOLOGIST TAILING HAND DANDRE MEDINA M.D. Performed By: #### C GERARDO ROSENTHAL CUBLD, CBC #### [address] GFR/1.73 sq M.predicted MDRD (S/P/Bld) [Vol rate/Area] mL/min/{1.73_m2} Normal [facility] Comment on above: Performed By: #### C GERARDO ROSENTHAL CUBLD, CBC #### [place] [address] [place] Globulin (S) [Mass/Vol] 3.2 g/dL Normal T he [facility] Comment on above: Performed By: #### C GERARDO ROSENTHAL CUBLD, CBC #### [address] Glucose [Mass/Vol] 373 mg/dL High 70-100 [facility] Comment on above: Result Comment: [facility] Glucose Reference Range is dependent on time and content of last meal. Glucose of more than 200 mg/dL in a nonstressed, ambulatory subject supports the diagnosis of Diabetes Mellitus. ADA recommended reference range Performed By: #### C MP, LACTIC CUBLD, CBC #### [facility] [address] Potassium [Moles/Vol] 4.5 mmol/L Normal 3.5-5.1 [facility] Comment on above: Performed By: #### C MP LACTIC CUBLD, CBC #### [facility] [address] Protein [Mass/Vol] 7.0 g/dL Normal 6.4-8.9 [facility] Comment on above: Performed By: #### C MP, LACTIC CUBLD, CBC #### [facility] [address] Sodium [Moles/Vol] 129 mmol/L Low 136-145 [facility] Comment on above: Performed By: #### C MP, LACTIC CUBLD, CBC #### [facility] [address] Urea nitrogen [Mass/Vol] 18 mg/dL Normal 7-25 [facility] Comment on above: Performed By: #### C MPGERARDO CUBLD, CBC #### [place] [id number] [facility] ECG 12 lead ECGon 10-20-2023 ECG 12 lead ECG [facility] Main [place] [address] [place] [address] Electrocardiograph Report Signed Patient: Roshan Hoang JR MR#: [id number] 225 : 1955 Acct:[id number] Age/Sex: 68 / M ADM Date: 10/20/23 Loc: Room: [address] [place] [address] Type: ADM IN Attending Dr: Trevon Bailey MD Ordering Provider: Yen Hoover MD Date of Service: 10/19/2301/06/2306 ECG/ECG 12 lead ECG: Extremity Injury, Lower Copies to: Test Reason : Blood Pressure : / mmHG Vent. Rate : 095 BPM Atrial Rate : 095 BPM P-R Int : 148 ms QRS Dur : 090 ms QT Int : 338 ms P-R-T Axes : 045 -48 072 degrees QTc Int : 424 ms Sinus rhythm with occasional premature ventricular complexes Left axis deviation Abnormal ECG No previous ECGs available Confirmed by Bassem Chand ([id number]) on 10/21/2023 9:13:02 AM Referred By: Electronically Signed By:Bassem Chand Transcribed By: MUS Signed By Bassem Chand MD 10/21/23 0913 Normal [facility] Glucose Poct Glucometerson 0 10-20-2023 Glucose [Mass/Vol] 284 mg/dL Normal [facility] Comment on above: Result Comment: [facility] Glucose Reference Range is dependent on time and content of last meal. Glucose of more than 200 mg/dL in a nonstressed, ambulatory subject supports the diagnosis of Diabetes Mellitus. PERFORMED BY: [place] [address] PATHOLOGIST [employer]ILING [employer] DANDRE MEDINA M.D. Performed By: #### G LULS #### Point of Care testing , Glucose [Mass/Vol] 113 mg/dL Normal [facility] Comment on above: Result Comment: [facility] Glucose Reference Range is dependent on time and content of last meal. Glucose of more than 200 mg/dL in a nonstressed, ambulatory subject supports the diagnosis of Diabetes Mellitus. PERFORMED BY: [place] [address] PATHOLOGIST [employer]IL[employer] DANDRE MEDINA M.D. Performed By: #### B MP #### [address] Glucose [Mass/Vol] 285 mg/dL Normal [facility] Comment on above: Result Comment: [facility] Glucose Reference Range is dependent on time and content of last meal. Glucose of more than 200 mg/dL in a nonstressed, ambulatory subject supports the diagnosis of Diabetes Mellitus. PERFORMED BY: [place] [address] PATHOLOGIST [employer]IL[employer] DANDRE MEDINA M.D. Performed By: #### C MP, LACTIC, CUBLD, CBC #### [facility] [address] Glucose [Mass/Vol] 334 mg/dL Normal [facility] Comment on above: Result Comment: [place] Glucose Reference Range is dependent on time and content of last meal. Glucose of more than 200 mg/dL in a nonstressed, ambulatory subject supports the diagnosis of Diabetes Mellitus. PERFORMED BY: [place] [address] PATHOLOGIST [employer]IL[employer] DANDRE MEDINA M.D. Performed By: #### B MP #### [facility] [address] [place] [id number] [facility] Glucose [Mass/Vol] 374 mg/dL Normal [facility] Comment on above: Result Comment: [facility] Glucose Reference Range is dependent on time and content of last meal. Glucose of more than 200 mg/dL in a nonstressed, ambulatory subject supports the diagnosis of Diabetes Mellitus. PERFORMED BY: [place] [address] PATHOLOGIST [employer]IL[employer] DANDRE MEDINA M.D. Performed By: #### B MP #### [facility] [address] [place] [id number] [facility] Glucose mean value [Mass/vol ume] in Blood Estimated from glycated hemoglobinOrdered By: Terence Roblero on 10-20-2023 Average glucose Estimated from glycated hemoglobin (Bld) [Mass/Vol] 283 mg/dL [facility] Hemoglobin A1c percentageOrd ered By: Terence Roblero on 10-20-2023 HbA1c (Bld) [Mass fraction] 11.5 % 4.3-5.6 [facility] Comment on above: Increased risk for d iabetes: 5.7 - 6.4diabetes: >6.4glycemic control for adults with diabetes: <7.0 Lactate [Moles/volume] in Se rum or PlasmaOrdered By: Yen Hoover on 10-20-2023 Lactate [Moles/Vol] 0.9 mmol/L 0.5-2.2 [facility] Lactic Acidon 10-20-2023 Lactate [Moles/Vol] 2.0 mmol/L Off scale high 0.5-2.2 T [facility] Comment on above: Result Comment: Crit ical Result : Called to and read back by: CARMELINA SCHMITZ at: 10/19/2023 23:32:51 by:[id number] PERFORMED BY: [place] [address] PATHOLOGIST [employer]IL[employer] DANDRE MEDINA M.D. Performed By: #### C MP, LACTIC, CUBLD, CBC #### [address] Lactic Acid Reflexon 024 Lactic Acid Reflex 0.9 mmol/L Normal 0.5-2.2 [facility] Comment on above: Result Comment: PERF ORMED BY: [place] [address] PATHOLOGIST [employer]IL[employer] DANDRE MEDINA M.D. Performed By: #### B MP #### [address] Lipid Panelon 10-20-2023 Cholesterol [Mass/Vol] 136 mg/dL Low 140-200 Th e [facility] Comment on above: Order Comment: DEANDRE Petty Comment add on Result Comment: Chol less than 200 mg/dl low risk Chol 201-239 mg/dl borderline risk Chol 240 mg/dl and greater high risk Performed By: #### C MP, LACTIC, CUBLD, CBC #### [address] Cholesterol in HDL [Mass/Vol] 27 mg/dL Normal 23-92 [facility] Comment on above: Order Comment: DEANDRE Petty Comment add on Result Comment: HDL CHOL ATP-III CLASSIFICATION Cardiovascular Risk HDL > or equal to 60 mg/dL LOW HDL < 40 mg/dL HIGH Performed By: #### C MP, LACTIC, CUBLD, CBC #### [address] Cholesterol.total/Martha sterol in HDL [Mass ratio] 5.0 {ratio} Normal <5.0 [facility] Comment on above: Order Comment: DEANDRE Petty Comment add on Result Comment: PERF ORMED BY: [place] [address] PATHOLOGIST [employer]IL[employer] DANDRE MEDINA M.D. Performed By: #### C MP LACTIC CUBLD, CBC #### [place] [id number] [facility] LDL Cholesterol,Calculated 79 mg/dL Normal 0-100 [facility] Comment on above: Order Comment: DEANDRE Petty Comment add on Result Comment: LDL ATP III CLASSIFICATION LDL less than 100 mg/dL Optimal LDL 100-129 mg/dL Near or above optimal LDL 130-159 mg/dL Borderline high LDL 160-189 mg/dL High LDL greater than 189 mg/dL Very high Performed By: #### C MP LACTIC CUBLD, CBC #### [address] Triglyceride w/Reflex 149 mg/dL Normal 0-149 [facility] Comment on above: Order Comment: DEANDRE Petty Comment add on Result Comment: TRIG ATP III CLASSIFICATION TRIG less than 150 mg/dL Normal TRIG 150-199 mg/dL Borderline high TRIG 200-500 mg/dL High TRIG greater than 500 mg/dL Very high Standard traceable to the Center for Disease Conrtrol and Prevention (CDC) test method. Performed By: #### C MP LACTIC CUBLD, CBC #### [address] VLDL CHOLESTEROL 29 mg/dL Normal [facility] Comment on above: Order Comment: DEANDRE Petty Comment add on Performed By: #### C MP LACTIC CUBLD, CBC #### [place] [id number] [facility] Magnesiumon 10-20-2023 Magnesium [Mass/Vol] 1.7 mg/dL Low 1.9-2.7 [facility] Comment on above: Result Comment: PERF ORMED BY: [place] [address] PATHOLOGIST TAILING [employer] DANDRE MEDINA M.D. Performed By: #### B MP #### [facility] [address] [place] [address] [place] Serum or plasma high density lipoprotein (HDL) cholesterol measurementOrdered By: Terence Roblero on 10-20-2023 Cholesterol in HDL [Mass/Vol] 27 mg/dL 23-92 [facility] Comment on above: HDL CHOL ATP-III CLA SSIFICATION Cardiovascular RiskHDL > or equal to 60 mg/dL LOWHDL < 40 mg/dL HIGH Serum or plasma total choles terol/high density lipoprotein (HDL) cholesterol mass ratOrdered By: Terence Roblero on 10-20-2023 Cholesterol.total/Martha sterol in HDL [Mass ratio] 5.0 {ratio} <5.0 [facility] Superficial Wound Cultureon 10-20-2023 Superficial Wound Culture Result Tab Codes Light Normal Skin [place] 1 Day ORGANISM: Diptheroids (O:DIPTH) Quantity of Growth Heavy Growth PERFORMED BY: [place] [address] PATHOLOGIST TAILING HAND DANDRE MEDINA M.D. Normal [facility] Comment on above: Performed By: #### C MP, LACTIC, CUBLD, CBC #### [address] Triglyceride [Mass/volume] i n Serum or PlasmaOrdered By: Terence Roblero on 10-20-2023 Triglyceride [Mass/Vol] 149 mg/dL 0-149 F [facility] Comment on above: TRIG ATP III CLASSIF ICATIONTRIG less than 150 mg/dL NormalTRIG 150-199 mg/dL Borderline highTRIG 200-500 mg/dL High TRIG greater than 500 mg/dL Very highStandard traceable to the Center for Disease Conrtrol and Prevention (CDC) test method. US arterial pvr rest Anika US arterial pvr rest LE [facility] Main [place] [address] [place] [address] Ultrasound Report Signed Patient: Roshan Hoang JR MR#: [id number] 225 : 1955 Acct:[id number] Age/Sex: 68 / M ADM Date: 10/20/23 Loc: Room: [address] [place] [address] Type: ADM IN Attending Dr: Trevon Bailey MD Ordering Provider: Krysta Beasley DO, RES Date of Service: 10/20/23 US/US arterial pvr rest LE: Right second toe ulcer Copies to: Krysta Beasley DO, RES Trevon Bailey MD LOWER EXTREMITY SEGMENTAL ARTERIAL DOPSCAN (PVR) INDICATION: Right second toe ulcer and PAD with a history of right leg stent. PROCEDURE: Right arm blood pressure is 114 , left is 143 . Pressures throughout the right leg are 142 at the high thigh, 132 at the low thigh, 128 at the calf, 114 at the ankle using the posterior tibial artery and 104 at the ankle using the dorsalis pedis artery with ankle- brachial index of 0.73 0.80 . Pressures throughout the left leg are 142 at the high thigh, 133 at the low thigh, 154 at the calf, 104 at the ankle using the posterior tibial artery and 86 at the ankle using the dorsalis pedis artery with ankle-brachial index of 0.60 0.73 . Wave forms by plethysmography are biphasic, bilaterally. US/US arterial pvr rest LE IMPRESSION: Mild to moderate PERIPHERAL ARTERIAL DISEASE OF THE bilateral LOWER EXTREMITY AT REST. THE PATIENT IS MOST LIKELY TO HAVE TIBIAL DISEASE OF THE bilateral LOWER EXTREMITY. Impression dictated by: Daniele Aaron MD10/20/2023 5:04 PM Dictation Location: [place] [address] Tech: Reny Degroot Transcribed By: LOLY 10/20/231703 Dictated By: Daniele Aaron MD 10/20/231702 Signed By: 10/20/231703 Normal [facility] XR foot RT min 3V*on 024 XR foot RT min 3V* [facility] [place] [address] XRay Report Signed Patient: Roshan Hoang JR MR#: [id number] 225 : 1955 Acct:[id number] Age/Sex: 68 / M ADM Date: 10/20/23 Loc: Room: [address] [place] [address] Type: ADM IN Attending Dr: Trevon Bailey MD Copies to: MD Yen Jaramillo MD Ordering Provider: Yen Hoover MD Date of Service: 10/19/23 XR/XR foot RT min 3V*: Extremity Injury, Lower RIGHT FOOT - 3 views CLINICAL DATA: Painless, swelling and erythema at the second toe where there is a wound. COMPARISON: None AP, lateral and oblique views were obtained. There is prior amputation of the third toe at the head of the proximal phalanx. There is no evidence of fracture or dislocation. . There is irregularity at the oziel of the distal phalanges of the first and second toes. There is a wound with subcutaneous air at the tip of the second toe which is in this area. Osteomyelitis is therefore difficult to exclude. No other soft tissue abnormalities are noted. There is atherosclerotic disease XR/XR foot RT min 3V* IMPRESSION: WOUND AT THE DISTAL SECOND TOE WITH IRREGULARITY AT THE UNDERLYING TUFT OF THE DISTAL PHALANX. OSTEOMYELITIS IS NOT COMPLETELY EXCLUDED ON THE BASIS OF THIS STUDY. Impression dictated by: Ariane Nguyen M.D.10/20/2023 8:20 AM Dictation Location: [place] [address] Transcribed By: LOLY 10/20/23 0820 Dictated By: Ariane Nguyen MD 10/20/23 0816 Signed By: 10/20/23 0820 Normal [facility] Bacterial blood cultureOrder ed By: Yen Hoover on 10-19-2023 Bacteria identified Cx Nom (Bld) NO GROWTH 5 DAYS [facility] Monocyte distribution width [Entitic volume] in Blood by AutomatedOrdered By: Yen Hoover on 10-19-2023 Monocyte distribution width Auto (Bld) [Entitic vol] 17.90 % 0.00-20.00 [facility] Glucose Glucometer (BldC) [M ass/Vol]on 08-01-2023 Glucose [Mass/Vol] 130 mg/dL High 65-99 [facility] Vital Signs Date Time Vital Sign Value Performing Clinician Joei jake 12-08-2023 11:23-0400 Body height 182.88 cm MD Yen Hoover Work Phone: [facility] 12-08-2023 11:23-0400 Body mass index (BMI) [Ratio] 25 kg/m2 MD Yen Hoover Work Phone: [facility] 12-08-2023 11:23-0400 Body temperature 97.8 [degF] MD Yen Hoover Work Phone: [facility] 12-08-2023 11:23-0400 Body weight 83.91 kg MD Yen Hoover Work Phone: [facility] 12-08-2023 11:23-0400 Diastolic blood pressure 66 mm[Hg] MD Yen Hoover Work Phone: [facility] 12-08-2023 11:23-0400 Heart rate 7 /min MD Yen Hoover Work Phone: [facility] 12-08-2023 11:23-0400 Respiratory rate 16 /min MD Yen Hoover Work Phone: [facility] 12-08-2023 11:23-0400 SaO2% (BldA) [Mass fraction] 91 % MD eYn Hoover Work Phone: [facility] 12-08-2023 11:23-0400 Systolic blood pressure 112 mm[Hg] MD Yen Hoover Work Phone: [facility] 11-24-2023 12:04-0400 Body height 182.88 cm MD Yen Hoover Work Phone: [facility] 11-24-2023 12:04-0400 Body mass index (BMI) [Ratio] 25 kg/m2 MD Yen Hoover Work Phone: [facility] 11-24-2023 12:04-0400 Body temperature 97.6 [degF] MD Yen Hoover Work Phone: [facility] 11-24-2023 12:04-0400 Body weight 83.91 kg MD Yen Hoover Work Phone: [facility] 11-24-2023 12:04-0400 Diastolic blood pressure 72 mm[Hg] MD Yen Hoover Work Phone: [facility] 11-24-2023 12:04-0400 Heart rate 73 /min MD Yen Hoover Work Phone: [facility] 11-24-2023 12:04-0400 Respiratory rate 16 /min MD Yen Hoover Work Phone: [facility] 11-24-2023 12:04-0400 SaO2% (BldA) [Mass fraction] 98 % MD Yen Hoover Work Phone: [facility] 11-24-2023 12:04-0400 Systolic blood pressure 126 mm[Hg] MD Yen Hoover Work Phone: [facility] 10-25-2023 18:30-0400 Body temperature 98 [degF] MD Yen Hoover Work Phone: [facility] 10-25-2023 18:30-0400 Diastolic blood pressure 75 mm[Hg] MD Yen Hoover Work Phone: [facility] 10-25-2023 18:30-0400 Heart rate 70 /min MD Yen Hoover Work Phone: [facility] 10-25-2023 18:30-0400 Respiratory rate 18 /min MD Yen Hoover Work Phone: [facility] 10-25-2023 18:30-0400 SaO2% (BldA) [Mass fraction] 94 % MD Yen Hoover Work Phone: [facility] 10-25-2023 18:30-0400 Systolic blood pressure 132 mm[Hg] MD Yen Hoover Work Phone: [facility] 10-25-2023 16:10-0400 Inhaled oxygen flow rate 5 L/min MD Yen Hoover Work Phone: [facility] 10-25-2023 05:41-0400 Body weight 85.6 kg MD Yen Hoover Work Phone: [facility] 10-21-2023 17:12-0500 Body height 182.88 cm MD Yen Hoover Work Phone: [facility] 10-21-2023 17:12-0500 Body mass index (BMI) [Ratio] 24.9 kg/m2 MD Yen Hoover Work Phone: [facility] 08-25-2023 14:03-0500 Diastolic blood pressure 95 mm[Hg] Timothy [facility] 08-25-2023 14:03-0500 Heart rate 83 /min Timothy Bennett PA-C Work Phone: [place] 08-25-2023 14:03-0500 Systolic blood pressure 157 mm[Hg] Timothy Bennett [facility]C [facility] 08-25-2023 13:55-0500 Body height 182.9 cm Timothy Bennett PA-C Work Phone: [place] 08-25-2023 13:55-0500 Body mass index (BMI) [Ratio] 25.77 kg/m2 Timothy Bennett PA-C Work Phone: [facility] 08-25-2023 13:55-0500 Body weight 86.18 kg Timothy Bennett PA-C Work Phone: [facility] [employer] Encounters Encounter Date Encounter Type Care Provider Facility Start: 12-27-2023 End: 12-28-2023 ambulatory Lori Jackson MD Facility:[facility] Start: 12-24-2023 ambulatory TIMOTHY BENNETT [facility] Start: 12-23-2023 End: 12-24-2023 ambulatory ASIYA AMBROCIO [facility] Start: 12-21-2023 End: 12-22-2023 ambulatory FILIPE SUBRAMANIAN [facility] Start: 12-08-2023 End: 12-08-2023 ambulatory MD Yen Hoover Work Phone: [facility] Work Phone: Start: 12-08-2023 End: 12-08-2023 Patient encounter procedure MD Yen Hoover Work Phone: [facility] Physician [facility] Vascular Surgery Work Phone: Start: 12-03-2023 End: 12-07-2023 Emergency department patient visit MIKAELA BARRETO [facility] Start: 12-03-2023 End: 12-06-2023 Evaluation and management of inpatient TRANG SOTOOKSamson [facility] Start: 11-24-2023 End: 11-24-2023 ambulatory PHYSICIAN NO FAMILY Facility:[facility] Start: 11-24-2023 End: 11-24-2023 ambulatory MD Yen Olivaland Work Phone: [facility] Work Phone: Start: 11-24-2023 End: 11-24-2023 Patient encounter procedure MD Yen Hoover Work Phone: [facility] Vascular Surgery Work Phone: Start: 10-25-2023 Non-patient / Non-visit MD [place] Work Phone: [facility] Work Phone: Start: 10-22-2023 Non-patient / Non-visit MD [place] Work Phone: [facility] Physician [facility] Med OutPt Work Phone: Start: 10-21-2023 Non-patient / Non-visit MD [place] Work Phone: [facility] Physician [facility] Infectious Disease Work Phone: Start: 10-20-2023 Non-patient / Non-visit MD [place] Work Phone: [facility] Physician [facility] Work Phone: Start: 10-20-2023 End: 10-25-2023 Evaluation and management of inpatient Terence Roblero Facility:[facility] Start: 10-20-2023 End: 10-25-2023 Evaluation and management of inpatient MD Yen Hoover Work Phone: [facility] [place] [facility] Work Phone: Start: 09-06-2023 Refill Emanuel Cornelius er CODING AND REIMBURSEMENT SPECIALIST-CHEF DE FROID Work Phone: [facility] Start: 09-04-2023 Refill Catherine Urena PRN-CHEF DE FROID Work Phone: [facility] Comment on above: Med Refill Start: 09-03-2023 Refill Emanuel Cornelius er CODING AND REIMBURSEMENT SPECIALIST-CHEF DE FROID [facility]: [facility] Start: 08-30-2023 Telephone encounter Bari alvarado [facility] Start: 08-25-2023 End: 08-25-2023 ambulatory TIMOTHY Sewell [facility] Start: 08-25-2023 End: 08-25-2023 Office outpatient visit 25 minutes Emanuel Hector CODING AND REIMBURSEMENT SPECIALIST-CHEF DE FROID Work Phone: [facility] Comment on above: Breakthrough seizure ([facility]) (Primary Dx); Seizure disorder (CMS-HCC); Essential hypertension; Type 2 diabetes mellitus with diabetic polyneuropathy, with long-term current use of insulin ([facility]) Start: 08-19-2023 End: 08-20-2023 ambulatory EMANUEL HECTOR [facility] Start: 08-18-2023 Refill Emanuel Cornelius er CODING AND REIMBURSEMENT SPECIALIST-CHEF DE FROID Work Phone: [facility] Start: 08-13-2023 [address] Ferguson RN [facility] Comment on above: Med Refill Start: 08-06-2023 End: 08-07-2023 ambulatory TRANG MCCORMICK [facility] Start: 12-02-2022 Patient encounter status Johanna Ferguson RN [facility] Procedures Date Procedure Procedure Detail Performing Clinician Start: 11-24-2023 Aerobic microbial culture MD Yen wolfe Work Phone: Start: 11-24-2023 Ankle brachial pressure index MD Yen Hoover Work Phone: Start: 10-21-2023 X-ray of right foot MD Yen Hoover Work Phone: Start: 10-20-2023 Aerobic microbial culture MD Yen wolfe Work Phone: Start: 10-20-2023 CT of right foot with contrast MD Yen Hoover Work Phone: Start: 10-20-2023 Pulse volume recorder pneumoplethysmography MD Yen Hoover Work Phone: Start: 10-19-2023 X-ray of right foot MD Yen Hoover Work Phone: Start: 10-19-2023 Blood culture for bacteria, including anaerobic screen MD Yen Hoover Work Phone: Start: 07-31-2023 H/O: surgery S/P amputation Johanna Ferguson RN Start: 05-26-2023 Adult depression screening assessment Johanna Ferguson RN Start: 10-17-2018 Colonoscopy Johanna Ferguson RN Start: 10-09-2015 History of coronary artery bypass grafting S/P CABG x 4 Johanna Ferguson RN Plan of Treatment Date Care Activity Detail Author Start: 05-09-2033 DTaP,Tdap and Td Vaccines (3 - Td or Tdap) DTaP,Tdap and Td Vaccines (3 - Td or Tdap) [facility] Start: 08-25-2024 Adult BMI Screening Adult BMI Screening [facility] Start: 08-25-2024 Tobacco Screening [facility]ening [facility] Start: 08-01-2024 Adult BMI Screening Adult [facility] Screening [facility] Start: 07-30-2024 Tobacco Screening Tobacco Screening [facility] Start: 05-26-2024 Depression Screening Depression Screening [facility] Start: 12-24-2023 End: 12-24-2023 Patient encounter procedure 12/24/2023 2:00 PM EDT Office Visit [facility] [address] [place] [address] Timothy Bennett PA-C [address] [place] [phone] [facility] Start: 11-24-2023 Superficial Wound Culture Superficial Wound Culture [facility] Start: 11-24-2023 Bacteria identified in Unspecified specimen by Aerobe culture [facility] Start: 11-24-2023 Ankle brachial pressure index [facility] Start: 10-28-2023 Adult BMI Follow Up Plan Adult BMI Follow Up Plan [facility] Start: 10-25-2023 [facility] Start: 10-20-2023 Detachment at Right 2nd Toe, Complete, Open Approach Detachment at Right 2nd Toe, Complete, Open Approach [facility] Start: 10-20-2023 Dilation of Right Anterior Tibial Artery, Percutaneous Approach Dilation of Right Anterior Tibial Artery, Percutaneous Approach [facility] Start: 10-20-2023 Referral to vascular surgeon [facility] Start: 10-20-2023 Referral to infectious diseases physician [facility] Start: 10-20-2023 Referral to medical center representative [facility] Start: 10-20-2023 Hospital admission [facility] Start: 10-19-2023 End: 10-19-2023 Patient encounter procedure 10/19/2023 2:00 PM EST Office Visit [facility] [address] [place] [address] Roosevelt Gamble MD [address] [place] [address] [facility] Start: 08-30-2023 End: 08-30-2023 Patient encounter procedure 08/30/2023 9:20 AM EST Office Visit [facility] [address] [address] Paul Alvarez, RANDALL [address] [place] [address] [facility] Start: 08-25-2023 End: 08-25-2023 Patient encounter procedure 08/25/2023 2:00 PM EST Office Visit [facility] [address] [facility] [place] [facility] [place] [address] Emanuel Hector, CODING AND REIMBURSEMENT SPECIALIST-CHEF DE FROID [address] [place] [address] Timothy Bennett PA-C [address] [place] [address] [facility] Start: 08-20-2023 End: 08-20-2023 Patient encounter procedure 08/20/2023 1:00 PM EST Office Visit [facility] [address] [facility] [place] [facility] [address] Timothy Bennett PA-C [address] [place] [address] [facility] Start: 08-19-2023 End: 08-19-2023 Patient encounter procedure 08/19/2023 9:30 AM EST Appointment [facility] [address] [place] [address] Emanuel Hector, CODING AND REIMBURSEMENT SPECIALIST-CHEF DE FROID [address] [place] [phone] [facility] Start: 10-17-2022 Screening for malignant neoplasm of colon Colonoscopy [facility] Start: 01-25-2020 Fall Risk Screening Fall [facility]ening [facility] Start: 2005 Administration of varicella zoster vaccine Zoster (Shingles) Vaccine (1 of 2) [facility] Start: 1973 Diabetic foot examination Diabetic Foot Exam [facility] Start: 1955 Glaucoma screening Diabetic Ophthalmology Exam [facility] Start: 1955 Medicare Annual Wellness Visit Medicare Annual Wellness Visit [facility] Start: 1955 Tobacco Counseling Tobacco Counseling [facility] Start: 1955 Urine screening for protein Urine Microalbumin [facility] Ankle brachial press ure index [facility] Patient Education Peripheral Vas cular (Arterial) Disease (DC) Wound Care for Arterial Puncture (DC) [facility] Work Phone: Patient referral [facility] Work Phone: Immunizations Immunization Date Immunization Notes Care Provider Fa cility 05-09-2023 tetanus toxoid, redu alissa diphtheria toxoid, and acellular pertussis vaccine, adsorbed Johanna Ferguson RN [facility] 06-25-2022 Influenza, High-dose , Quadrivalent Johanna Ferguson RN [facility] 12-03-2021 Covid-19, Mrna, Lnp- s, Pf, 30 Mcg/0.3 Ml Dose, Ej-sucrose Johanna Ferguson RN [facility] 12-03-2021 pneumococcal polysaccharide vaccine, 23 valent Johanna Ferguson RN [facility] 06-28-2021 COVID-19, mRNA, LNP- S, PF, 30mcg/0.3mL Dose Johanna Ferguson RN [facility] 06-27-2021 Influenza, High-dose , Quadrivalent Johanna Ferguson RN [facility] 10-28-2020 COVID-19, mRNA, LNP- S, PF, 30mcg/0.3mL Dose Johanna Ferguson RN [facility] 10-07-2020 COVID-19, mRNA, LNP- S, PF, 30mcg/0.3mL Dose Johanna Ferguson RN [facility] 08-15-2020 Influenza, High-dose , Quadrivalent Johanna Ferguson RN [facility] 08-15-2020 pneumococcal conjuga te vaccine, 13 valent Joahnna Ferguson RN [facility] 05-28-2019 Seasonal, quadrivale nt, recombinant, injectable influenza vaccine, preservative free Johanna Ferguson RN [facility] 09-08-2018 influenza, injectabl e, quadrivalent, preservative free Johanna Ferguson RN [facility] 08-15-2016 influenza, injectabl e, madin serenity canine kidney, preservative free Johanna Ferguson RN [facility] 10-11-2015 influenza virus vacc ine, whole virus Johanna Ferguson RN [facility] 12-05-2012 tetanus toxoid, redu alissa diphtheria toxoid, and acellular pertussis vaccine, adsorbed Johanna Ferguson RN [facility] Payers Date Payer Category Payer Medicare [id number] 2023 Self-pay 2023 Unknown 2018 Medicare ANTHEM MEDICARE ANTHEM MEDICARE ADVANTAGE [id number] 2018-Present [phone] [address] [place] [address] [id number] 2018 Medicare [id number] 1955 Unknown [id number] 1955 Unknown [id number] 1955 Unknown [id number] [id number] 1955 Unknown [id number] [id number] 1955 Unknown [id number] [id number] 1955 Unknown [id number] 2.840.1.626490.3.579.2.1286 1955 Unknown [id number] 2.16.840.1.716064.3.579.2.1286 1955 Unknown [id number] [id number] 1955 Unknown [id number] 2.16.840.1.283748.3.579.2.1285 1955 Unknown [id number] [id number]85 1955 Unknown [id number] [id number] 1955 Unknown [id number] [id number] Medicaid [facility] [id number] Unknown [id number] [id number] Unknown [id number] Social History Date Type Detail Facility Start: 07-22-2023 Tobacco smoking status NHIS Ex-smoker [facility] Start: 10-21-2023 End: 07-16-2023 History of tobacco use Current smoker [facility] End: 07-16-2023 History of tobacco use Cigarette Smoker [facility] Start: 09-13-2020 End: 07-22-2023 Cigarettes smoked current (pack per day) - Reported 1 [facility] Start: 07-22-2023 End: 08-25-2023 Tobacco use and exposure Smokeless tobacco non-user [facility] Start: 07-30-2023 End: 08-25-2023 Alcohol intake Current drinker of alcohol (finding) [facility] Start: 09-13-2020 End: 05-26-2023 Alcohol Use Disorder Identification Test - Consumption [AUDIT-C] [facility] How often to you hav e a drink containing alcohol? Monthly or less [facility] How many standard dr inks containing alcohol do you have on a typical day? [address] [facility] How often do you hav e 6 or more drinks on 1 occasion? Never [facility] Adolescent depressio n screening assessment 2 [facility] Start: 07-15-[address] [facility] Start: 1955 Sex Assigned At Male [facility] Start: 04-23-2022 Gender identity Identifies as male gender (finding) [facility] Start: 04-23-2022 Sexual orientation Heterosexual (finding) [facility] Start: 08-25-2023 Tobacco smoking status NHIS Smokes tobacco daily [facility] Medical Equipment Procedure Code Equipment Code Equipment Origin al Text Equipment Identifier Dates Stent Vsc 6mm 12 0mm 130cm Drg Elute Dlv Sys María Rpl [id number] - [id number] FDA Start: 12-16-2022 Goals Date Patient Goal Desired Activity /State Personal health goal Comment on above: Formatting of this n ote might be different from the original. Evaluation of progress towards goal: SNF vs home care Functional Status Date Assessment Result Facility 10-25-2023 Functional status Patient at Baseline [facility] Work Phone: Mental Status Date Assessment Result Facility 10-25-2023 Cognitive function Cognitive Sta tus Patient at Baseline [facility] Work Phone: Clinical Notes 08-25-2023 to 08-30-2023 Telephone Encounter - Bari Olivas CMA - 08/30/2023 11:54 AM ESTTelephone Encounter - Bari Olivas CMA - 08/30/2023 11:54 AM Abel Bennett PA-C - 08/25/2023 2:00 PM EST Note Date & Type Note Facility 08-30-2023 Miscellaneous Notes Called patient to reschedule appointment that he wanted to cancel. Next available in [place] documented in this encounter [facility] 08-30-2023 Telephone encounter Note Called patient to reschedule appointment that he wanted to cancel. Next available in [place] [facility] 08-25-2023 History of Presen t illness Narrative [facility] Office Note 08/24/2023 3:23 PM Patient info: Roshan Hoang Jr. is a 68 y.o. male Account No.: [id number] Acct: : 1955 PCP: TRANG MCCORMICK DO Chief Complaint: Patient, 68 year old right hand dominant male, presents for follow up Neurological evaluation regarding seizure. Last seen in the office on 10/27/22. Roshan is present in the office today with his . Interval Hx: Roshan had another seizure event while riding in the car with his on 07/30/23. He lost consciousness and convulsed for a short time; (+) foaming at the mouth per his . There was postictal confusion/lethargy as well. He was evaluated at the ER and admitted to the hospital. There was a Telehealth Neurology Consult on 07/31/23. Recommended increasing Keppra to 750 mg BID and to follow up in the outpatient Neurology Clinic. Notably, CT Head without contrast and CTA Head and carotids did not show any acute pathology. Current ASM: Keppra 750 mg BID Routine EEG completed on 08/06/23. It was normal. Roshan has been tolerating the dose of Keppra well. There has been no further seizures or seizure-like events. Previous Studies: 08/06/23: Routine EEG - Normal 07/30/23: CT Head without contrast - Unremarkable for acute intracranial abnormality 07/30/23: CTA Head and Carotids - No evidence for high-grade stenosis or occlusion of the major vessels of the [place]. - No hemodynamically significant stenoses. Prior Hx: The patient is a 67-year-old right-handed male with past medical history of hypertension, hyperlipidemia, coronary artery disease status post CABG X 4, cervical spondyloarthritis with canal stenosis, lumbar spondylosis, COPD, smoker, diabetes mellitus type 2, who was driving to work on 04/23/2022 when he noted vertigo, altered level of consciousness, and left sided weakness. He eventually pulled off the road due to the onset of these symptoms. At that time he developed vertigo, altered mentation and had incontinence of his bowels. When he became more alert he noted left hemiparesis that persisted throughout the day. After finishing his shift he did present to [facility] ER for further evaluation and management. Initial CT head did not show any acute intracranial pathology. CTA head and neck did show evidence of diffuse atherosclerosis intra+extracranially, however no hemodynamically significant stenosis, occlusion or malformation was identified. Subsequent MRI brain did not show any acute intracranial pathology, with mild chronic microvascular disease appreciated supratentorially. LDL 90 mg/dL, hemoglobin A1c 8.2%. It seems the patient's left-sided weakness resolved within 24 hours of onset. Patient was initially seen by tele Stroke Service, however they were concerned more about seizures with Carlos's paralysis rather than an acute cerebrovascular event. Patient was then seen by the tele neurology service. Had an EEG which was unremarkable. Was started on Keppra 500 mg b.i.d. for seizure prophylaxis. Was eventually discharged home in a stable condition. In June 2022, patient had ambulatory 72 hour EEG monitoring, which was a normal study. Patient is currently on aspirin, atorvastatin for secondary prevention. Interval history (10/27/2022): - Currently on Keppra 500 mg b.i.d., denies any adverse events related to the medication. - Has not had any seizure-like activity, lateralizing neurological deficits since the last clinic visit. - Currently ambulating without any assistive devices. Is independent with ADLs and IADLs. - Used to drive trucks for a living, has a commercial driving license/CDL.. At the last clinic visit he had informed me that he was considering retiring from that. However, he would like to continue driving trucks for a living, on a part-time basis. He intends to drive a truck 2 to 3 times a week, 6-8 hours per day. He has an upcoming physical evaluation with DOT. Reports having a valid CDL at this time. Past Medical Hx: See EMR Surgical Hx: See EMR Allergies: See EMR Review of Systems: Constitutional: Negative for fever, chills, sweats, or unintentional weight loss Eyes: Negative HENT: Negative Cardiovascular: Negative for chest pain and palpitations Respiratory: Negative for cough and shortness of breath Gastrointestinal: Negative for nausea, vomiting, abdominal pain and diarrhea Genitourinary: Negative for dysuria, urgency, frequency, or hematuria Musculoskeletal: - lumbar DDD Skin: Negative for skin rash Neurological: - as noted in the HPI Psychiatric/Behavioral: - depression Endocrine: - DM II Hem/Onc: Negative Allergy/immunology: Negative Vitals: BP: 157/95 HR: 83 Weight: 86.2 kg Physical Exam: General: well groomed, pleasant, appears stated age Neurological Exam: The patient is awake, alert, and attentive Speech and language are normal Normal affect, with normal orientation and cognition EOMI, PERRL, No gross visual field deficits Face is symmetric, Tongue protrudes midline Palate rises symmetrically with uvula midline Shoulder shrug is strong bilaterally Nose to finger testing is without dysmetria Upper Extremity Drift is (-) Fine motor skills are approximately equal in each hand Tremor: (-) Sensation is decreased in the extremities in glove-stocking distribution DTR's are trace-1+ throughout Patterson's sign (-) bilaterally Strength throughout the Upper Extremities is 5/5 Strength throughout the Lower Extremities is 5/5 Muscle Tone throughout the extremities is normal Romberg is (-) Gait is casual with normal base, normal stride and bilateral arm swing ASSESSMENT: Roshan is a 68 year old right hand dominant male with a hx of hypertension, hyperlipidemia, coronary artery disease status post CABG X 4, cervical spondyloarthritis with canal stenosis, lumbar spondylosis, COPD, smoker, and diabetes mellitus type 2 who has seizures; most likely complex-partial, some with secondary generalization. PLAN: Continue Keppra 750 mg BID Discontinue Tramadol, as it is known to lower the seizure threshold. Advised patient (and ) to call his [employer]'s office regarding blood pressure issues. Advised to refrain from operating any sort of motorized vehicle at this time. Advised to refrain from climbing various objects, such as ladders, scaffolding, trees, etc. Advised to have another adult present at all times if submerging oneself into water, such as in a bath, jacuzzi, pool, pond, etc. Follow up in the office in 4 months Electronically Signed by: Timothy Bennett PA-C 09/05/231929 documented in this encounter [facility] Evaluation note Diagnosis Combined hyperlipidemia Other and unspecified hyperlipidemia documented in this [facility] Diagnosis Breakthrough seizure ([facility])- Primary Seizure disorder ([facility]) Unspecified epilepsy without mention of intractable epilepsy Essential hypertension Unspecified essential hypertension Type 2 diabetes mellitus with diabetic polyneuropathy, with long-term current use of insulin ([facility]) documented in this encounter [facility]* Diagnosis Onset Date Resolution Status Diabetes mellitus, type 2 ac kassandra Cellulitis of right lower limb resolved [id number] resolved Dry gangrene resolved Hyperlipidemia resolved Hypertension resolved Hypomagnesemia resolved Loose stools resolved PVD (peripheral vascular disease) resolved Seizure resolved Type 2 diabetes mellitus with diabetic polyneuropathy resolved [facility] Work Phone: Evaluation note* Diagnosis Onset Date Resolution Status Diabetes mellitus, type 2 ac kassandra Cellulitis of right lower limb resolved [id number] resolved Dry gangrene resolved Hyperlipidemia resolved Hypertension resolved Hypomagnesemia resolved Loose stools resolved PVD (peripheral vascular disease) resolved Seizure resolved Type 2 diabetes mellitus with diabetic polyneuropathy resolved Non-healing surgical wound a cute PAD (peripheral artery disease) acute Smoker acute [facility] Work Phone: InstructionsNot on filedocumented in this encounter [facility] filed[facility]ed in this encounter [facility] on filedocumented in this encounter [facility] on filedocumented in this encounter [facility] on filedocumented in this encounter [facility] on filedocumented in this encounter [facility] Advance Directives No Advanced Directives Records FoundDocuments on File Type Date Recorded Patient Knuckler Expl anation Durable Power of Retail Asset Protection Specialist Latest Code Status on File Code Status Date Activated Date Inactivated Comments Full Code 07/31/2023 8:46 AM 08/01/2023 3:26 PM Code Status History Code Status Date Activated Date Inactivated Comments Full Code 11/26/2022 9:10 PM 11/27/2022 7:13 PM Full Code 04/23/2022 4:02 PM 04/28/2022 3:26 PM Advance Directive Response Recorded Date/ Time Advance Directives No October 19 12:29am Chief Complaint and Reason for Visit Chief Complaint R leg swelling R leg swelling R leg swelling R leg swelling 4 WK F/U ANGIOGRAM/ANGIOPLASTY RT LEG; AXEL RT LEG I96 Reason for Visit Diabetes mellitus, t ype 2 Cellulitis of right lower limb [id number] Dry gangrene Hyperlipidemia Hypertension Hypomagnesemia Loose stools PVD (peripheral vascular disease) Seizure Type 2 diabetes mellitus with diabetic polyneuropathy Chief Complaint R leg swelling R leg swelling R leg swelling R leg swelling 4 WK F/U ANGIOGRAM/ANGIOPLASTY RT LEG; AXEL RT LEG I96 Reason for Visit Diabetes mellitus, t ype 2 Cellulitis of right lower limb [id number] Dry gangrene Hyperlipidemia Hypertension Hypomagnesemia Loose stools PVD (peripheral vascular disease) Seizure Type 2 diabetes mellitus with diabetic polyneuropathy Non-healing surgical wound PAD (peripheral artery disease) Smoker Chief Complaint R leg swelling R leg swelling R leg swelling R leg swelling 4 WK F/U ANGIOGRAM/ANGIOPLASTY RT LEG; AXEL RT LEG I96 2 WK FOLLOW UP; WOUND CHECK Reason for Visit Diabetes mellitus, t ype 2 Cellulitis of right lower limb [id number] Dry gangrene Hyperlipidemia Hypertension Hypomagnesemia Loose stools PVD (peripheral vascular disease) Seizure Type 2 diabetes mellitus with diabetic polyneuropathy Non-healing surgical wound PAD (peripheral artery disease) Smoker Family History No Family History Records Found Relationship Condition Age at Onset Recorded Date/T daniela father Family history of liver cancer Unknown Malignant neoplasm Unknown Unknown family member Unknown Not Specified Unknown Malignant neoplasm of urinary bladder Unk nown Summary Purpose Additional Source Comments Reason for Visit (unrecogniz ed section and content) Reason Onset Date Comments Med Refill 08/13/2023 Reason Comments Med Refill Reason Comments New Patient Patient presents for Seizure disorder, patient has seen Dr. Ronquillo before. Wants results [facility] eeg done at [facility]. Specialty Diagnoses / Procedures Referred By Maulik cobb Referred To Contact Neurology Diagnoses Breakthrough seizure ([facility]) Emanuel Hector, CODING AND REIMBURSEMENT SPECIALIST-CHEF DE FROID [address] [place] [address] [facility] [address] [place] [address] Referral ID Status Reason Start Date Expiration Date Visits Requested Visits Authorized [id number] Pending Review Specialty Services Required 3 07/30/2024 1 1 Care Teams (unrecognized sec tion and content) Interior Decorator Paperhanging Relationship Specialty Start Date End Date Trang Mccormick DO [address] [place] [address] PCP - General Family Medicine 10/27/21 Interior Decorator Paperhanging Relationship Specialty Start Date End Date Trang Mccormick DO [address] [place] [address] PCP - General Family Medicine 10/27/21 Interior Decorator Paperhanging Relationship Specialty Start Date End Date Trang Mccormick DO [address] [place] [address] PCP - General Family Medicine 10/27/21 Interior Decorator Paperhanging Relationship Specialty Start Date End Date Trang Mccormick DO [address] [place] [address] PCP - General Family Medicine 10/27/21 Interior Decorator Paperhanging Relationship Specialty Start Date End Date Trang Mccormick DO [address] [place] [address] PCP - General Family Medicine 10/27/21 Interior Decorator Paperhanging Relationship Specialty Start Date End Date Trang Mccormick DO [address] [place] [address] PCP - General Family Medicine 10/27/21 Team Status: Active Member Role Status Dates PHYSICIAN NO FAMILY Primary Care Provider Active Team Status: Inactive Member Role Status Dates Yen Hoover MD Emergency Provider Active Start: October 20, 2023 End: October 25, 2023 Terence Roblero DO Admit Provider Active Start: October 20, 2023 End: October 25, 2023 Brock Rivera DPM Other Provider Active Sta rt: October 20, 2023 End: October 25, 2023 Asiya Morales MD Other Provider Active Start: October 20, 2023 End: October 25, 2023 Daniele Aaron MD Other Provider Active Start: October 20, 2023 End: October 25, 2023 Emmanuel Zazueta MD Attending Provider Active Sta rt: October 20, 2023 End: October 25, 2023 PHYSICIAN NO FAMILY Primary Care Provider Active Start: October 20, 2023 End: October 25, 2023 Team Status: Active Member Role Status Dates NON STAFF Primary Care Provider Active Start: October 20, 2023 Yen Hoover MD Emergency Provider Active Start: October 20, 2023 Terence Roblero DO Admit Provider Active Start: October 20, 2023 Trevon Bailey MD Other Provider Active Sta rt: October 20, 2023 Brock Rivera DPM Other Provider Active Sta rt: October 20, 2023 Asiya Morales MD Other Provider Active Start: October 20, 2023 Daniele Aaron MD Attending Prov ider, Other Provider Active Start: October 20, 2023 Team Status: Active Member Role Status Dates NON STAFF Primary Care Provider Active Start: October 21, 2023 Yen Hoover MD Emergency Provider Active Start: October 21, 2023 Terence Roblero DO Admit Provider Active Start: October 21, 2023 Trevon Bailey MD Other Provider Active Sta rt: October 21, 2023 Brock Rivera DPM Other Provider Active Sta rt: October 21, 2023 Asiya Morales MD Attending Provider, Other Provider Active Start: October 21, 2023 Daniele Aaron MD Other Provider Active Start: October 21, 2023 Team Status: Active Member Role Status Dates NON STAFF Primary Care Provider Active Start: October 22, 2023 Yen Hoover MD Emergency Provider Active Start: October 22, 2023 Terence Roblero , DO Admit Provider Active Start: October 22, 2023 Trevon Bailey MD Attending Provide r, Other Provider Active Start: October 22, 2023 Brock Rivera DPM Other Provider Active Sta rt: October 22, 2023 Asiya Morales MD Other Provider Active Start: October 22, 2023 Daniele Aaron MD Other Provider Active Start: October 22, 2023 Team Status: Active Member Role Status Dates PHYSICIAN NO FAMILY Primary Care Provider Active Start: October 25, 2023 Emmanuel Zazueta MD Attending Provider Active Sta rt: October 25, 2023 Matt Waite MD Active Start: [facility] 2023 Team Status: Inactive Member Role Status Dates PHYSICIAN NO FAMILY Primary Care Provider Active Start: November 24, 2023 End: November 24, 2023 Daniele Aaron MD Attending Provider Active Start: November 24, 2023 End: November 24, 2023 Team Status: Active Member Role Status Dates PHYSICIAN NO FAMILY Primary Care Provider Active Start: November 24, 2023 Daniele Aaron MD Attending Provider Active Start: November 24, 2023 Team Status: Inactive Member Role Status Dates PHYSICIAN NO FAMILY Primary Care Provider Active Start: December 08, 2023 End: December 08, 2023 Daniele Aaron MD Attending Provider Active Start: December 08, 2023 End: December 08, 2023 (unrecognized sect ion and content) No Status Records FoundNo Status Records FoundNo Status Records FoundNo Status Records FoundNo Status Records Found INFORMATION SOURCE (unrecogn ized section and content) DATE CREATED AUTHOR 12/02/2023 [facility] DATE CREATED AUTHOR AUTHOR'S ORGANIZ ATION 12/22/2023 [facility] DATE CREATED AUTHOR AUTHOR'S ORGANIZ ATION 12/24/2023 [facility] DATE CREATED AUTHOR AUTHOR'S ORGANIZ ATION 12/25/2023 [facility] DATE CREATED AUTHOR AUTHOR'S [facility] 12/30/[address] [facility] FOR RECORDS PERTAINING TO PATIENTS WHO ARE OR HAVE BEEN ENROLLED IN A CHEMICAL DEPENDENCY/SUBSTANCEABUSE PROGRAM, SOME INFORMATION MAY BE OMITTED. This clinical summary was aggregated from multiple sources. Caution should be exercised in using it in the provision of clinical care. This summary normalizes information from multiple sources, and as a consequence, information in this document may materially change the coding, format and clinical context of patient data. In addition, data may be omitted in some cases. CLINICAL DECISIONS SHOULD BE BASED ON THE PRIMARY CLINICAL RECORDS. [facility]. provides no warranty or guarantee of the accuracy or completeness of information in this document.
[2024-01-24 07:15] VITALS: BP 155/81; PULSE 78; TEMP 36.5; O2SAT 99
[2024-01-24 07:23] LABS: Glucometer 79 mg/dL (74-106)
[2024-01-24] MEDS: 0.9 % SODIUM CHLORIDE 500 ML IV (07:24)
[2024-01-24] MEDS: DEXAMETHASONE SOD PHOS 10 MG/ML VIAL INJ (07:58)
[2024-01-24] MEDS: BUPIVACAINE HCL 0.25% PF 25 MG/10 ML VIAL INJ (07:58)
[2024-01-24] MEDS: LIDOCAINE HCL 2% PF 100 MG/5 ML VIAL INJ (07:59)
[2024-01-24] MEDS: IOHEXOL 240 MG/ML - 10 ML VIAL INJ (07:59)
--- NOTE | 2024-01-24 08:03 | P.ON_ITS ---
Date of procedure: 01/24/24 Pre-op diagnosis: Pain due to cervical radiculopathy Post-op diagnosis: same as pre-op Procedure: Procedure: Left C4-5, 5-6 transforaminal epidural steroid injection Medications: Bupivacaine 0.25% 1cc, lidocaine 2% 1cc, dexamethasone 10mg The patient was seen and examined in the preoperative holding area.? Informed consent was obtained and placed on the chart.? Patient was brought to the medical procedure unit and placed in the prone position where a timeout was completed verifying the correct patient, procedure site, position, and planned special equipment using sterile aseptic technique.? Under direct fluoroscopic visualization a 25-gauge Quincke tipped spinal needle was advanced to the designated neural foramen where contrast dye was injected to show adequate spread.? The needle was inserted at level left C4-5. There was no evidence of v ascular or adverse uptake.? Epidural spread was appreciated.? The above- mentioned injectate was then placed in a 1.5 mL aliquot preceded by negative aspiration.? The needle was removed. The needle was inserted and the procedure repeated at level left C5-6.? The surgery site was covered.? Patient was taken to the postprocedural recovery area and monitored for an appropriate length of time before found suitable for discharge in the accompaniment of a responsible adult. Anesthesia: MAC Surgeon: Lori Jackson Pathology: none sent Condition: stable Disposition: no change
[2024-01-24 08:04] VITALS: BP 122/70; PULSE 73; TEMP 36.2; O2SAT 98
[2024-01-24 08:09] VITALS: BP 122/69; PULSE 71; O2SAT 99
== END 2024-01-24 08:30 | disposition home or self-care (01) ==
LOC: SURGOUT 07:08
PROVIDERS: Visit Provider Anesthesiology
DX: M54.12 Radiculopathy, cervical region (principal); Z79.84 Long term (current) use of oral hypoglycemic drugs; E11.9 Type 2 diabetes mellitus without complications; Z95.1 Presence of aortocoronary bypass graft; I10 Essential (primary) hypertension; E78.5 Hyperlipidemia, unspecified; I25.10 Atherosclerotic heart disease of native coronary artery without angina pectoris
CPT/HCPCS: 36415; 64479; 64480; 82948; J1100; J2704; Q9966

== ENCOUNTER 2024-02-03 14:07 | Outpatient (OUT) | payer MEDICARE, SELFPAY ==
--- NOTE | 2024-02-03 14:10 | P.CN_ITS ---
Consult Note: HPI Data of Consult Patient: new to practice Consult date: 12/27/23 Requesting Physician: Shannan Man NP Primary Care Provider: Non-Staff Physician, Family Provider: EDGAR Consult Narrative Reason for consult: neck, left shoulder/arm pain Narrative: 68yom who presents for evaluation. increasing neck and left arm pain for several years, now worsening. imaging reviewed, which is significant for severe left sided stenosis at c4-5 and c5-6. has completed >6 weeks of provider directed home exercise program, without benefit. uses tylenol primarily, has had percocet in the past, with some benefit. cannot take nsaids because of anticoagulation. denies adverse med side effects. recently underwent left C4-5 C5-6 TFESI with no improvement cc:: CC: Shannan Man NP Review of Systems ROS Status of ROS 10 or more systems reviewed and unremark able except as noted in history and below Musculoskeletal Reports: neck pain PFSH PFSH Medical History (Updated 01/20/24 @ 09:56 by Eloise Olivas RN) Toe amputee ?Z89.429 - Acquired absence of other toe(s), unspecified side (ICD-10) Diabetes ?E11.9 - Type 2 diabetes mellitus without complications (ICD-10) High cholesterol ?E78.00 - Pure hypercholesterolemia, unspecified (ICD-10) HTN (hypertension) ?I10 - Essential (primary) hypertension (ICD-10) Myocardial infarction ?I21.9 - Acute myocardial infarction, unspecified (ICD-10) Surgical History History of cataract extraction ?Z98.49 - Cataract extraction status, unspecified eye (ICD-10) History of back surgery ?Z98.890 - Other specified postprocedural states (ICD-10) History of ankle surgery ?Z98.890 - Other specified postprocedural states (ICD-10) History of heart bypass surgery ?Z95.1 - Presence of aortocoronary bypass graft (ICD-10) Meds Home Medications and Allergies Home Medications ?Medication ?Instructions ?Recorded ?Confirmed ?Type atorvastatin 80 mg tablet 80 mg PO DAILY 11/20/23 11/20/23 History carvedilol 12.5 mg tablet 12.5 mg PO Q12H 11/20/23 11/20/23 History fenofibrate 160 mg tablet 160 mg PO DAILY 11/20/23 11/20/23 History insulin glargine 100 unit/mL (3 28 unit subcut DAILY 11/20/23 11/20/23 History mL) subcutaneous pen (Lantus Solostar U-100 Insulin) levetiracetam 750 mg tablet 750 mg PO Q12H 11/20/23 11/20/23 History magnesium 200 mg tablet 400 mg PO TID 11/20/23 11/20/23 History metformin 1,000 mg tablet 1,000 mg PO BID 11/20/23 11/20/23 History omeprazole 40 mg capsule,delayed 40 mg PO DAILY 11/20/23 11/20/23 History release acetaminophen 500 mg tablet 1,000 mg PO Q6H PRN pain 12/27/23 12/27/23 History (Tylenol Extra Strength) amlodipine 5 mg tablet 5 mg PO DAILY 12/27/23 12/27/23 History aspirin 81 mg chewable tablet 81 mg PO DAILY 12/27/23 12/27/23 History losartan 25 mg tablet 25 mg PO DAILY 12/27/23 12/27/23 History metformin 1,000 mg tablet 1,000 mg PO BID 12/27/23 12/27/23 History oxycodone-acetaminophen 5 mg-325 1 tab PO BID PRN pain #14 tabs 12/27/23 Rx mg tablet (Percocet) rivaroxaban 20 mg tablet (Xarelto) 20 mg PO DAILY 12/27/23 12/27/23 History Allergies Allergy/AdvReac Type Severity Reaction Status Date / Time No Known Drug Allergies Allergy Verified 12/27/23 13:38 Exam Narrative Exam Narrative: Psych-alert and oriented x 3.? Attentive and appropriate, constitutionally normal, displays normal mood and affect per situation.? There are no obvious deficits in memory, reasoning, or intellect.? Skin-no obvious rashes, bruising, or erythema noted to the patient's area of pain.? Extremities-upper extremities are warm with minimal edema and palpable pulses. Cervical- tenderness to palpation noted in the cervical spine and paraspinal musculature.? Pain is elicited with flexion, extension, and lateral rotation of the cervical spine.? Range of motion is diminished due to pain. Facet loading maneuvers are positive.? Strength-unremarkable and within normal limits with the exception to the left biceps Sensory-no notable sensory deficits in the bilateral upper extremities to touch or pinprick with the exception to decreased sensation to the left C4, 5, 6 dermatomal distribution.? Coordination remains intact.? Gait remains non-antalgic. Assessment and Plan Assessment and Plan (1) Cervical stenosis of spinal canal: (2) Radiculopathy, cervical region: Plan no improvement from left C4-5 C5-6 TFESI, advised patient to f/u with PAIGE Mckeon and team
== END 2024-02-03 14:08 | disposition home or self-care (01) ==
LOC: PM 14:08
PROVIDERS: Visit Provider Nurse Practitioner
DX: M54.12 Radiculopathy, cervical region (principal); M48.02 Spinal stenosis, cervical region
CPT/HCPCS: G0463